=== PATIENT | female | born 1970 | race Caucasian/White ===

== ENCOUNTER 2016-08-10 15:22 | Inpatient (IN) | payer OTHER ==
[2016-08-10] MEDS ORDERED: MORPHINE SULFATE 2 MG/ML SYRINGE IVP STA ×2 (16:11→16:57)
[2016-08-10] MEDS ORDERED: RX INFO: IV CONTRAST WAS GIVEN 1 EACH MISC MISCELLANE PRN (16:11)
[2016-08-10] MEDS ORDERED: ONDANSETRON 4 MG/2 ML VIAL IVP STA ×2 (16:11→17:23)
[2016-08-10] MEDS ORDERED: SODIUM CHLORIDE 0.9% 1,000 ML IV STA (16:11)
--- NOTE | 2016-08-10 16:30 | ED ---
Abdominal Pain HPI - General Chief Complaint: Abdominal Pain Stated Complaint: abdominal pain Time Seen by Provider: 08/10/16 16:06 Source: patient, RN notes reviewed Mode of arrival: ambulatory Limitations: no limitations - History of Present Illness Initial Comments: 45-year-old female presents emergency Department with chief complaint of left lower quadrant abdominal pain times one week. Patient states this started after eating some popcorn. Patient states that she has a history of diverticulitis. Patient believes that she is having a bout of her diverticulitis. Patient states that she also has noticed that she's had black tarry stools for last 5-6 days. Patient states that is getting worse. She complains of severe fatigue and exertional shortness of breath. Patient states that she just is very tired. Patient denies any known fever, chills. Patient states she has been having some night sweats. Patient has no history of abdominal surgeries and states that she did not have an abscess with her previous diverticulitis. Patient denies any vaginal bleeding or vaginal discharge. Patient denies any dysuria, hematuria or increased frequency of urination. Denies any flank pain. - Related Data Allergies Allergy/AdvReac Type Severity Reaction Status Date / Time amoxicillin Allergy Unknown Verified 08/10/16 15:36 Penicillins Allergy Unknown Verified 08/10/16 15:36 Sulfa (Sulfonamide Allergy Unknown Verified 08/10/16 15:36 Antibiotics) Review of Systems ROS Statement: Those systems with pertinent positive or pertinent negative responses have been documented in the HPI. ROS Other: All systems not noted in ROS Statement are negative. Past Medical History Past Medical History: Asthma, Hypertension Additional Past Medical History / Comment(s): diverticulitis History of Any Multi-Drug Resistant Organisms: None Reported Past Surgical History: Tubal Ligation Additional Past Surgical History / Comment(s): exploratory GI surgery Past Psychological History: No Psychological Hx Reported Smoking Status: Never smoker Past Alcohol Use History: Occasional Past Drug Use History: None Reported General Exam Limitations: no limitations General appearance: alert, in no apparent distress Head exam: Present: atraumatic, normocephalic, normal inspection Respiratory exam: Present: normal lung sounds bilaterally. Absent: respiratory distress, wheezes, rales, rhonchi, stridor Cardiovascular Exam: Present: regular rate, normal rhythm, normal heart sounds. Absent: systolic murmur, diastolic murmur, rubs, gallop, clicks GI/Abdominal exam: Present: soft, tenderness (Moderate left lower quadrant tenderness), normal bowel sounds. Absent: distended, guarding, rebound, rigid Rectal exam: Present: normal rectal tone, heme (+) stool, black stool, other ( Rectal exam performed with Suha VILLAFUERTE). Absent: hemorrhoids Back exam: Absent: CVA tenderness (R), CVA tenderness (L) Skin exam: Present: warm, dry, intact, normal color. Absent: rash Course Vital Signs 08/10/16 08/10/16 15:33 17:22 Temperature 98.1 F Pulse Rate 102 H 92 Respiratory 20 16 Rate Blood Pressure 133/67 143/89 O2 Sat by Pulse 98 100 Oximetry Medical Decision Making - Lab Data Result diagrams: 08/10/16 16:30 08/10/16 16:30 Lab Results 08/10/16 08/10/16 08/10/16 Range/Units 16:30 16:30 16:30 WBC 12.9 H (3.8-10.6) k/uL RBC 2.59 L (3.80-5.40) m/uL Hgb 7.9 L (11.4-16.0) gm/dL Hct 23.3 L (34.0-46.0) % MCV 89.9 (80.0-100.0) fL MCH 30.6 (25.0-35.0) pg MCHC 34.0 (31.0-37.0) g/dL RDW 14.0 (11.5-15.5) % Plt Count 304 (150-450) k/uL Neutrophils % 76 % Lymphocytes % 15 % Monocytes % 5 % Eosinophils % 3 % Basophils % 0 % Neutrophils # 9.8 H (1.3-7.7) k/uL Lymphocytes # 1.9 (1.0-4.8) k/uL Monocytes # 0.6 (0-1.0) k/uL Eosinophils # 0.4 (0-0.7) k/uL Basophils # 0.1 (0-0.2) k/uL PT (9.0-12.0) sec INR (<1.1) APTT (22.0-30.0) sec Sodium 142 (137-145) mmol/L Potassium 3.6 (3.5-5.1) mmol/L Chloride 103 (98-107) mmol/L Carbon Dioxide 27 (22-30) mmol/L Anion Gap 12 mmol/L BUN 24 H (7-17) mg/dL Creatinine 0.53 (0.52-1.04) mg/dL Est GFR (MDRD) Af Amer >60 (>60 ml/min/1.73 sqM) Est GFR (MDRD) Non-Af >60 (>60 ml/min/1.73 sqM) Glucose 117 H (74-99) mg/dL Plasma Lactic Acid Bandar (0.7-2.0) mmol/L Calcium 9.2 (8.4-10.2) mg/dL Total Bilirubin 0.3 (0.2-1.3) mg/dL AST 23 (14-36) U/L ALT 44 (9-52) U/L Alkaline Phosphatase 67 (38-126) U/L Total Protein 6.1 L (6.3-8.2) g/dL Albumin 3.7 (3.5-5.0) g/dL Amylase 45 (30-110) U/L Lipase 94 (23-300) U/L Urine Color Urine Appearance (Clear) Urine pH (5.0-8.0) Ur Specific [place] (1.001-1.035) Urine Protein (Negative) Urine Glucose (UA) (Negative) Urine Ketones (Negative) Urine Blood (Negative) Urine Nitrate (Negative) Urine Bilirubin (Negative) Urine Urobilinogen (<2.0) mg/dL Ur Leukocyte Esterase (Negative) Urine HCG, Qual Not Detected (Not Detectd) Stool Occult Blood (Negative) 08/10/16 08/10/16 08/10/16 Range/Units 16:30 16:30 16:30 WBC (3.8-10.6) k/uL RBC (3.80-5.40) m/uL Hgb (11.4-16.0) gm/dL Hct (34.0-46.0) % MCV (80.0-100.0) fL MCH (25.0-35.0) pg MCHC (31.0-37.0) g/dL RDW (11.5-15.5) % Plt Count (150-450) k/uL Neutrophils % % Lymphocytes % % Monocytes % % Eosinophils % % Basophils % % Neutrophils # (1.3-7.7) k/uL Lymphocytes # (1.0-4.8) k/uL Monocytes # (0-1.0) k/uL Eosinophils # (0-0.7) k/uL Basophils # (0-0.2) k/uL PT 10.5 (9.0-12.0) sec INR 1.0 (<1.1) APTT 21.9 L (22.0-30.0) sec Sodium (137-145) mmol/L Potassium (3.5-5.1) mmol/L Chloride (98-107) mmol/L Carbon Dioxide (22-30) mmol/L Anion Gap mmol/L BUN (7-17) mg/dL Creatinine (0.52-1.04) mg/dL Est GFR (MDRD) Af Amer (>60 ml/min/1.73 sqM) Est GFR (MDRD) Non-Af (>60 ml/min/1.73 sqM) Glucose (74-99) mg/dL Plasma Lactic Acid Bandar 0.8 (0.7-2.0) mmol/L Calcium (8.4-10.2) mg/dL Total Bilirubin (0.2-1.3) mg/dL AST (14-36) U/L ALT (9-52) U/L Alkaline Phosphatase (38-126) U/L Total Protein (6.3-8.2) g/dL Albumin (3.5-5.0) g/dL Amylase (30-110) U/L Lipase (23-300) U/L Urine Color Yellow Urine Appearance Clear (Clear) Urine pH 6.0 (5.0-8.0) Ur Specific [place] 1.025 (1.001-1.035) Urine Protein Negative (Negative) Urine Glucose (UA) Negative (Negative) Urine Ketones Negative (Negative) Urine Blood Negative (Negative) Urine Nitrate Negative (Negative) Urine Bilirubin Negative (Negative) Urine Urobilinogen <2.0 (<2.0) mg/dL Ur Leukocyte Esterase Negative (Negative) Urine HCG, Qual (Not Detectd) Stool Occult Blood (Negative) 08/10/16 Range/Units 17:00 WBC (3.8-10.6) k/uL RBC (3.80-5.40) m/uL Hgb (11.4-16.0) gm/dL Hct (34.0-46.0) % MCV (80.0-100.0) fL MCH (25.0-35.0) pg MCHC (31.0-37.0) g/dL RDW (11.5-15.5) % Plt Count (150-450) k/uL Neutrophils % % Lymphocytes % % Monocytes % % Eosinophils % % Basophils % % Neutrophils # (1.3-7.7) k/uL Lymphocytes # (1.0-4.8) k/uL Monocytes # (0-1.0) k/uL Eosinophils # (0-0.7) k/uL Basophils # (0-0.2) k/uL PT (9.0-12.0) sec INR (<1.1) APTT (22.0-30.0) sec Sodium (137-145) mmol/L Potassium (3.5-5.1) mmol/L Chloride (98-107) mmol/L Carbon Dioxide (22-30) mmol/L Anion Gap mmol/L BUN (7-17) mg/dL Creatinine (0.52-1.04) mg/dL Est GFR (MDRD) Af Amer (>60 ml/min/1.73 sqM) Est GFR (MDRD) Non-Af (>60 ml/min/1.73 sqM) Glucose (74-99) mg/dL Plasma Lactic Acid Bandar (0.7-2.0) mmol/L Calcium (8.4-10.2) mg/dL Total Bilirubin (0.2-1.3) mg/dL AST (14-36) U/L ALT (9-52) U/L Alkaline Phosphatase (38-126) U/L Total Protein (6.3-8.2) g/dL Albumin (3.5-5.0) g/dL Amylase (30-110) U/L Lipase (23-300) U/L Urine Color Urine Appearance (Clear) Urine pH (5.0-8.0) Ur Specific [place] (1.001-1.035) Urine Protein (Negative) Urine Glucose (UA) (Negative) Urine Ketones (Negative) Urine Blood (Negative) Urine Nitrate (Negative) Urine Bilirubin (Negative) Urine Urobilinogen (<2.0) mg/dL Ur Leukocyte Esterase (Negative) Urine HCG, Qual (Not Detectd) Stool Occult Blood Positive H (Negative) 08/10/16 17:17 EKG performed at 16:38 normal sinus rhythm with a rate of 90, MI interval 142, QRS duration 98, QT/QTC 388/474 Disposition Clinical Impression: Anemia, GI bleed, Abdominal pain, left lower quadrant Disposition: ADMITTED IP TO THIS HOSP Condition: Stable
[2016-08-10 16:44] LABS: Basophils # (A) 0.1 k/uL (0-0.2); Basophils % (A) 0 %; CH 30.1; CHCM 33.7; Eosinophils # (A) 0.4 k/uL (0-0.7); Eosinophils % (A) 3 %; HCT 23.3 % (34.0-46.0); HDW 2.69; HGB 7.9 gm/dL (11.4-16.0); Luc # (Auto) 0.21; Luc % (Auto) 2; Lymphocytes # (A) 1.9 k/uL (1.0-4.8); Lymphocytes % (A) 15 %; MCH 30.6 pg (25.0-35.0); MCV 89.9 fL (80.0-100.0); Mean Platelet Volume 6.6; Monocytes # (A) 0.6 k/uL (0-1.0); Monocytes % (A) 5 %; Neutrophils # (A) 9.8 k/uL (1.3-7.7); Neutrophils % (A) 76 %; RBC 2.59 m/uL (3.80-5.40); WBC 12.9 k/uL (3.8-10.6); WBC (Perox) 12.96
[2016-08-10 16:45] LABS: Appearance,Urine Clear (Clear); Bilirubin,Urine Negative (Negative); Glucose,Urine (UA) Negative (Negative); Ketones,Urine Negative (Negative); Leukocyte Esterase,Urine Negative (Negative); Nitrite,Urine Negative (Negative); Protein,Urine Negative (Negative); Specific Gravity,Urine 1.025 (1.001-1.035); UA Billing (MACRO vs. MICRO) CHEM; Urobilinogen,Urine <2.0 mg/dL (<2.0)
[2016-08-10 16:54] LABS: ALT 44 U/L (9-52); AST 23 U/L (14-36); Alkaline Phosphatase 67 U/L (38-126); Amylase 45 U/L (30-110); Anion Gap 12 mmol/L; Blood Urea Nitrogen 24 mg/dL (7-17); Calcium 9.2 mg/dL (8.4-10.2); Carbon Dioxide 27 mmol/L (22-30); Chloride 103 mmol/L (98-107); Glucose 117 mg/dL (74-99); Non-African American GFR(MDRD) >60 (>60 ml/min/1.73 sqM); Potassium 3.6 mmol/L (3.5-5.1); Sodium 142 mmol/L (137-145); Total Bilirubin 0.3 mg/dL (0.2-1.3); Total Protein 6.1 g/dL (6.3-8.2)
[2016-08-10] MEDS ORDERED: MORPHINE SULFATE 4 MG/ML SYRINGE IVP STA (16:56)
[2016-08-10 17:03] LABS: Prothrombin Time 10.5 sec (9.0-12.0)
[2016-08-10 17:05] LABS: Partial Thromboplastin Time 21.9 sec (22.0-30.0)
--- NOTE | 2016-08-10 17:27 | CT ---
EXAMINATION TYPE: CT abdomen pelvis w con DATE OF EXAM: 08/10/2016 5:15 PM COMPARISON: NONE HISTORY: Left lower quadrant pain x 1 week. History of diverticulitis. CT DLP: 1487 mGycm Automated exposure control for dose reduction was used. CONTRAST: Performed without Oral Contrast and with IV Contrast, patient injected with 100 mL of Omnipaque 300. FINDINGS: The lung bases are clear. There is no pleural effusion. There is a small hiatal hernia. Heart size is normal. Liver spleen pancreas gallbladder appear normal. Bile ducts are nondilated. There is no adrenal mass. Kidneys show satisfactory contrast opacification. There is no hydronephrosis. There is no retroperit gardner adenopathy. There is no ascites. Bladder distends smoothly. There is no sign of a pelvic mass. Appendix is not seen. There is no sign of appendicitis. I see no intestinal wall thickening. There ar e no dilated loops. The bony structures are intact. Uterus is anteverted. There is no sign of a pelvi c mass. There are a few diverticula in the sigmoid colon. IMPRESSION: THERE IS A SMALL HIATAL HERNIA. OTHERWISE NEGATIVE CT SCAN OF THE ABDOMEN AND PELVIS. NO EVIDENCE OF ANY SIGNIFICANT DIVERTICULAR DISEASE.
[2016-08-10] MEDS ORDERED: NALOXONE 0.4 MG/ML 1 ML VIAL IV PRN (17:37)
[2016-08-10] MEDS ORDERED: LEVOFLOXACIN 750MG-D5W PMX 750 MG in DEXTROSE/WATER 1 150ML.BAG IVPB STA (17:43)
[2016-08-10] MEDS: SODIUM CHLORIDE 0.9% 1,000 ML IV SCH (18:28)
[2016-08-10 19:32] LABS: Basophils % (A) 0 %; CH 29.9; CHCM 32.7; Eosinophils # (A) 0.3 k/uL (0-0.7); Eosinophils % (A) 3 %; HCT 20.6 % (34.0-46.0); HDW 2.69; Luc # (Auto) 0.15; Luc % (Auto) 1; Lymphocytes # (A) 1.8 k/uL (1.0-4.8); Lymphocytes % (A) 17 %; MCHC 32.6 g/dL (31.0-37.0); MCV 91.8 fL (80.0-100.0); Mean Platelet Volume 7.4; Monocytes # (A) 0.4 k/uL (0-1.0); Monocytes % (A) 4 %; Neutrophils # (A) 7.7 k/uL (1.3-7.7); Neutrophils % (A) 74 %; RBC 2.24 m/uL (3.80-5.40); RDW 14.3 % (11.5-15.5); WBC 10.4 k/uL (3.8-10.6); WBC (Perox) 10.79
[2016-08-10 19:51] LABS: HGB 6.7 gm/dL (11.4-16.0)
[2016-08-10] MEDS: MORPHINE SULFATE 4 MG/ML SYRINGE IV PRN (20:32)
[2016-08-10] MEDS: PANTOPRAZOLE 40 MG/10 ML VIAL IVP SCH (22:20)
[2016-08-10] MEDS: ONDANSETRON 4 MG/2 ML VIAL IVP PRN (22:20)
[2016-08-11] MEDS: MORPHINE SULFATE 4 MG/ML SYRINGE IV PRN ×2 (01:24→06:15)
[2016-08-11] MEDS: metroNIDAZOLE-NS PMX 500 MG in SALINE 1 100ML.BAG IVPB SCH ×3 (01:24→13:03)
[2016-08-11] MEDS: SODIUM CHLORIDE 0.9% 1,000 ML IV SCH (02:19)
[2016-08-11] MEDS: ONDANSETRON 4 MG/2 ML VIAL IVP PRN ×2 (06:15→13:05)
[2016-08-11] MEDS ORDERED: IBUPROFEN 400 MG TAB PO STA (06:43)
[2016-08-11 07:53] LABS: Anion Gap 6 mmol/L; Blood Urea Nitrogen 14 mg/dL (7-17); Calcium 8.4 mg/dL (8.4-10.2); Carbon Dioxide 27 mmol/L (22-30); Chloride 107 mmol/L (98-107); Glucose 124 mg/dL (74-99); Non-African American GFR(MDRD) >60 (>60 ml/min/1.73 sqM); Sodium 140 mmol/L (137-145)
[2016-08-11 08:01] LABS: Basophils % (A) 1 %; CH 31.2; CHCM 33.5; Eosinophils # (A) 0.2 k/uL (0-0.7); Eosinophils % (A) 2 %; HCT 25.9 % (34.0-46.0); HDW 3.21; Luc # (Auto) 0.12; Luc % (Auto) 1; Lymphocytes # (A) 1.2 k/uL (1.0-4.8); Lymphocytes % (A) 13 %; MCH 30.1 pg (25.0-35.0); MCHC 32.2 g/dL (31.0-37.0); MCV 93.7 fL (80.0-100.0); Mean Platelet Volume 7.3; Monocytes # (A) 0.5 k/uL (0-1.0); Monocytes % (A) 5 %; Neutrophils % (A) 78 %; RBC 2.77 m/uL (3.80-5.40); RDW 14.8 % (11.5-15.5); WBC (Perox) 9.92
[2016-08-11 08:03] LABS: HGB 8.4 gm/dL (11.4-16.0)
[2016-08-11] MEDS: PANTOPRAZOLE 40 MG/10 ML VIAL IVP SCH (08:42)
[2016-08-11] MEDS ORDERED: PROPOFOL 10 MG/ML 20 ML VIAL IV ONE (09:28)
[2016-08-11] MEDS ORDERED: fentaNYL (PF) 50 MCG/ML 2 ML AMP ONE (09:28)
[2016-08-11] MEDS ORDERED: IV FLUID CONTINUATION 1,000 ML IV ONE (09:34)
[2016-08-11] MEDS ORDERED: EPINEPHrine 10 ML SYRINGE (0.1 MG/ML) MISCELLANE ONE (10:01)
[2016-08-11] MEDS ORDERED: SODIUM CHLORIDE 0.9% 1,000 ML IV ONE (10:09)
--- NOTE | 2016-08-11 10:26 | P.PCN ---
Date of Procedure: 08/11/16 Preoperative Diagnosis: Postoperative Diagnosis: Procedure(s) Performed: BRIEF HISTORY: Patient is a 45-year-old, pleasant, white female, admitted to the hospital with acute GI bleed. She was having black tarry stools and left sided abdominal pain for the last 1 week duration. The pain continued to progressively get worse and came into the emergency room and was noted to have a hemoglobin of 6.7 requiring 2 units of PRBC transfusion. She had a CT of the abdomen and pelvis done that showed a small hiatal hernia but otherwise unremarkable. This morning she had 2 episodes of coffee-ground emesis and continues to complain of worsening left-sided upper abdominal pain. She is scheduled for an upper endoscopy to evaluate further PROCEDURE PERFORMED: Esophagogastroduodenoscopy with injection epinephrine and resolution clip placement. PREOPERATIVE DIAGNOSIS: Upper GI bleed and left sided abdominal pain. IV sedation per anesthesia. PROCEDURE: After informed consent was obtained, the patient was brought into the endoscopy unit. IV conscious sedation was administered by Anesthesia under continuous monitoring. Initially the Olympus GIF-140 video endoscope was inserted into the mouth. Esophagus intubated without any difficulty. It was gradually advanced into the stomach and duodenum and carefully examined. The bulb and the second part of the duodenum appeared normal. There was a small ulcer noted in the bulb of the duodenum with no active bleeding. This measured about 1 cm and was superficial. The scope at this time was withdrawn to the stomach, adequately insufflated with air, and upon careful examination, there was fresh blood with clots noted in the fundus of the stomach. The mucosa of the antrum, body, cardia and the fundus appeared normal. The scope was then withdrawn into the esophagus. There was a small hiatal hernia noted. The GE junction was located at 39 cm from the incisors. There was a deep ulceration noted at the GE junction with a visible vessel and just adjacent to this area, distal to the GE junction there was another deep ulceration with a visible vessel noted. This measured approximately 1-1.5 cm. Initially 1 in 10,000 epinephrine was injected at the base of both ulcers which were located adjacent to each other. Following this 2 resolution clips were placed on each ulcer with good hemostasis. The rest of the esophagus appeared normal and the patient tolerated the procedure well. IMPRESSION: 1. 2 deep ulcerations at the GE junction with visible vessel and active oozing status post injection epinephrine and resolution clip placement with good hemostasis. 2. Small hiatal hernia. 3. Superficial once intermittent duodenal ulcer with no active bleeding. RECOMMENDATIONS: The findings of this examination were discussed with the patient . Because of the concern of the location of the ulcers and the appearance this a concern for perforation. The patient also has been having severe symptoms of abdominal pain which is especially worse with deep inspiration. Hence I will obtain surgical consultation and also stat CT of the chest. The findings of this examination were discussed with Dr. Driscoll. Implants: Indications for Procedure: Operative Findings: Description of Procedure:
[2016-08-11] MEDS ORDERED: RX INFO: IV CONTRAST WAS GIVEN 1 EACH MISC MISCELLANE PRN (10:27)
--- NOTE | 2016-08-11 11:59 | CT ---
EXAMINATION TYPE: CT chest w con DATE OF EXAM: 08/11/2016 11:32 AM COMPARISON: NONE HISTORY: LLQ abdominal pain, Hx of diverticulitis, anemia and GI bleed CT DLP: 387.20 mGycm, Automated exposure control for dose reduction was used. CONTRAST: Performed injected with 100 ml mL of Omnipaque 300. TECHNIQUE: Axial images were obtained at 5 mm thick sections. Reconstructed images are reviewed on [employer] computer in the coronal plane. FINDINGS: Portion of the thyroid visualized is normal. No suspicious lung nodules or focal infiltrates are present. There is a pneumomediastinum. Leaking from the reported esophageal ulceration should be considered. The some metallic type densities within the gastroesophageal junction region of uncertain etiology. O ne of these extends to nearly the border posteriorly. These are surgical clips placed during EGD by omayra lozano. No enlarged mediastinal or hilar adenopathy is evident. The ascending aorta diameter at the level o f the main pulmonary artery is 3.5 cm. The main pulmonary artery diameter at the bifurcation is 3.[address] sections are obtained through the upper abdomen. There is some fullness of the left adrena l gland estimated 1.1 cm. Contrast is within the gallbladder. IMPRESSIONS: 1. Pneumomediastinum. Report was called to Dr. Bojorquez by Dr. Hernandez by telephone 1155 hours 08/11/2016. Findings aren't interval change from 08/10/2016 CT abdomen pelvis.
[2016-08-11] MEDS ORDERED: ALBUTEROL NEBULIZED 2.5 MG/3 ML INHALATION SCH (12:00)
[2016-08-11] MEDS ORDERED: PIPERACILLIN-TAZOBACTAM 3.375 GM in DEXTROSE/WATER 1 50ML.BAG IVPB STA (12:06)
[2016-08-11 13:26] VITALS: BP 120/66; PULSE 84; RESP 18; TEMP 97.8
--- NOTE | 2016-08-11 14:48 | CONS ---
DATE OF CONSULTATION: 08/11/2016 REASON FOR CONSULTATION: Acute GI bleed. HISTORY OF PRESENT ILLNESS: The patient is a 46-year-old pleasant lady who came into the emergency complaining of severe left sided abdominal pain associated with black tarry stools for the last one weeks duration. She states her symptoms began the day after [place]. She thought she ate something and started having some black tarry stools. She was having about one bowel movement a day, but she did not see any obvious blood when she flushed the toilet. However, this continued on for the next 4 or 5 days and then started developing some left-sided abdominal pain, mostly in the left upper quadrant radiating to the left lower quadrant area and became extremely weak, tired, short of breath and came into the emergency room and subsequently was admitted to the hospital for further evaluation. She was noted to have a hemoglobin of 6.7, requiring 2 units of PRBC transfusion. This morning she did not feel well, became extremely nauseated and threw up and had 2 episodes of coffee-ground emesis. She stated the pain has been progressively getting worse. In the ER, she did have a CT of the abdomen and pelvis done that was unremarkable. No prior history of peptic ulcer disease. She takes Excedrin once or twice a week for headaches. PAST MEDICAL HISTORY: Asthma, hypertension, and history of some diverticulitis for which she was hospitalized 3 years ago and treated with antibiotics at [facility]. PAST SURGICAL HISTORY: Tubal ligation, and some exploratory laparotomy. MEDICATIONS AT HOME: 1. Zestoretic. 2. Albuterol. 3. Symbicort. ALLERGIES: AMOXICILLIN AND PENICILLIN, SULFA. SOCIAL HISTORY: No smoking. No alcohol use. FAMILY HISTORY: Unremarkable. REVIEW OF SYSTEMS: CARDIOPULMONARY: No chest pain or shortness of breath. GENITOURINARY: No dysuria or hematuria. MUSCULOSKELETAL: Unremarkable. SKIN: Unremarkable. ENDOCRINE: Unremarkable. PSYCHIATRIC: Unremarkable. NEUROLOGY: Unremarkable. ENT: Vision unremarkable. CONSTITUTIONAL: No recent weight loss. No fever, chills or night sweats. On physical examination, blood pressure is 125/70, pulse rate 92, temperature 98.1. HEENT examination unremarkable. Conjunctivae pink. Sclerae anicteric. Oral cavity, no lesions. NECK: No JVD or lymph node enlargement. Chest was clear to auscultation. HEART: Regular rate and rhythm. ABDOMEN: Soft. It was nontender, nondistended. There was mild tenderness in the left upper quadrant area as well as in the left lower quadrant area, but no rebound or rigidity. Bowel sounds are positive. EXTREMITIES: No pedal edema. SKIN: No rashes. NEURO: Alert and oriented x3. No focal deficits. Labs done at the time of admission to the hospital: WBC 12.9, hemoglobin 7.9, platelets 304, INR is 1, BUN was 24, creatinine 0.5 today. Hemoglobin dropped to 6.7 and after 2 units it is 8.4. BUN is 14, creatinine 0.5. Stool occult blood was positive. CT of the abdomen and pelvis showed small hiatal hernia but otherwise unremarkable. IMPRESSION: This is a lady who presents with left-sided abdominal pain with black tarry stools for the last one week duration and had a hemoglobin of 6.7 on admission requiring 2 units of PRBC transfusion. She also had 2 episodes of coffee-ground emesis early this morning after being admitted to the hospital. CAT scan showed small hiatal hernia but otherwise unremarkable. Most likely we are dealing with an upper gastrointestinal source of bleeding, possibly related to peptic ulcer disease. RECOMMENDATIONS: 1. Continue with IV Protonix. 2. Keep her n.p.o. 3. We will proceed with an upper endoscopy today. Discussed with the patient risks and complications and she is agreeable to it.
--- NOTE | 2016-08-11 17:17 | HP ---
DATE OF ADMISSION: CHIEF COMPLAINT: Abdominal pain. HISTORY OF PRESENT ILLNESS: Ms. Colon is a 45-year-old female with a known history of hypertension and asthma, came to the hospital with complaints of left lower quadrant and upper quadrant abdominal pain which has been present for the past 4 to 5 days. The patient stated that it got aggravated when she ate some popcorn yesterday which made her come to the hospital. Patient states that she had a history of diverticulitis in the past and patient also noted to have black, tarry stools for the past 5 to 6 days which is getting worse. Patient also complains of ( ) and exertional shortness of breath and very tired. Otherwise, patient denied any fever, chills and the patient has been having some night sweats as well. Patient denied any history of abdominal surgeries. The patient was seen by gastroenterology and upper endoscopy was done today which showed deep esophageal ulcer and possible perforation was suspected and subsequent CT scan of the chest was done which showed hemoperitoneum. Patient on antibiotics of Flagyl and levofloxacin and currently hemodynamically stable. General surgery has been consulted for further evaluation and possible surgery or transferred to tertiary care facility. Past medical history includes hypertension, asthma and had diverticulitis history. PAST SURGICAL HISTORY: Tubal ligation, exploratory GI surgery. SOCIAL HISTORY: Patient never a smoker. Occasional alcohol use. Denies any drug abuse. FAMILY HISTORY: Denied any history of hypertension, diabetes mellitus or heart disease in the family. HOME MEDICATIONS: Included amoxicillin, penicillin, sulfa. The patient denied any history of NSAID use or [id number] pain medication use. Home medications include albuterol inhaler, Cymbicort and lisinopril/hydrochlorothiazide. REVIEW OF SYSTEMS: CONSTITUTIONAL: No fever. No chills. Patient does have night sweats. CARDIOVASCULAR: Short of breath as above. ABDOMEN: Patient does have abdominal pain and no vomiting. No diarrhea. GENITOURINARY: The patient does have dark colored stools. ENDOCRINE: Negative. PSYCHIATRIC: Negative. PHYSICAL EXAMINATION: A 45-year-old female, lying in the bed. Awake, alert, oriented, x3. Patient appears to be in mild distress. VITALS: When she came to the hospital blood pressure was 133/67, pulse 102, respirations 20, temperature afebrile, pulse ox 98% on room air. HEENT: Atraumatic, normocephalic. NECK: Supple. No JVD. CVS: S1, S2 heard. No murmurs, no gallop, no rub. LUNGS: Bilateral air entry present. No wheezing. No crackles. ABDOMEN: Soft. Minimal epigastric tenderness. No guarding or rigidity. Bowel sounds are present. BIT TAPPER: Awake, alert, oriented, x3. No focal neurologic deficits. Cranial nerves grossly intact. EXTREMITIES: No edema. Pulses are palpable bilaterally. No clubbing or cyanosis. PSYCHIATRIC: Cooperative. LABORATORY DATA: WBC 12.9, hemoglobin 7.9, platelets 304. INR 1.0. Sodium 142, potassium 3.6, chloride 103, bicarb is 27. BUN 24, creatinine 0.53. Blood sugar is 117. Liver enzymes within normal limits. Albumin is 6.1. UA is negative. ( ) positive. CT of the abdomen and pelvis showed there is small hiatal, otherwise negative. CT scan of the abdomen and pelvis, no evidence of any significant diverticular disease. EKG, normal sinus rhythm. EGD showed two deep ulcerations at the gastroesophageal junction with visible vessel and active oozing status post injection of epinephrine and radiolucent clip placement with good hemostasis and a small hiatal hernia and superficial 1 cm duodenal ulcer with no active bleeding. IMPRESSION: 1. Acute blood loss anemia, acute upper gastrointestinal bleed. 2. Deep ulceration at the gastroesophageal junction status post EGD and radiolucent clip placement. 3. Small hiatal anemia. 4. History of diverticulitis per patient. 5. Hypertension. 6. Asthma. 7. Pneumomediastinum status post CT chest. RECOMMENDATIONS: This is a 45-year-old female with known history of diverticulitis, asthma and hypertension, admitted to the hospital with worsening abdominal pain in the side. and dark, tarry stools. Patient had endoscopy that showed two ulcers too deep to assess in the gastroesophageal junction with active bleeding which has been treated in the OR. Otherwise, the patient was found to have a pneumomediastinum and general surgery has been consulted and recommended transfer to tertiary care facility. The patient will be transferred to [facility] for further care. I did discuss with surgery team there. Will continue current management. Prognosis guarded. Further recommendations based on clinical course.
[2016-08-11] MEDS ORDERED: LEVOFLOXACIN 750MG-D5W PMX 750 MG in DEXTROSE/WATER 1 150ML.BAG IVPB SCH (18:00)
--- NOTE | 2016-08-14 12:56 | DS ---
DATE OF ADMISSION: 08/10/2016 DATE OF TRANSFER TO [facility]/DISCHARGE: 08/11/2016 DISCHARGE DIAGNOSES: 1. 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 2. Acute blood loss anemia secondary to upper gastrointestinal bleed and with dark-colored stools for the past 4 to 6 days. 3. History of diverticular disease. 4. Asthma. 5. Hypertension. Allergy to PENICILLIN. HISTORY OF ILLNESS: Ms. Colon is a 45-year-old female, admitted to the hospital with left-side abdominal pain and dark-colored stools, patient had endoscopy today, which showed 2 ulcers at the gastroesophageal junction and with visible vessel and bleeding. Patient was ( ) clip in the OR and subsequent CT angio and CT chest showed a pneumomediastinum and ( ) recommended transfer to a tertiary care facility. I did discuss with [facility] and the is being transferred to [facility] for further care. DISCHARGE PHYSICAL EXAMINATION: A 45-year-old female lying in the bed comfortably. Awake, alert, oriented x3, appears in no apparent distress. VITALS: Blood pressure is 101/61, pulse is 103, respirations 20, temperature afebrile, pulse ox 95% on room air. Laboratory data reviewed. WBC 9.0, hemoglobin dropped down to 6.7 and went up to 8.4 after a unit of blood transfusion. Other laboratory data within normal limits. UA negative. ( ) positive. Discharge medications include: 1. Albuterol inhaler 2 puffs q.6 hourly p.r.n. for short of breath. 2. Symbicort 2 puffs inhalation b.i.d. 3. Lisinopril-hydrochlorothiazide 1 tablet p.o. daily. 4. Patient was given antibiotics in the form of metronidazole and levofloxacin. Patient has ( ). The patient will be discharged to [facility] in stable condition and further care and I discussed with the surgical team there who accepted the patient and patient will be transferred to [facility] as soon as possible.
== END 2016-08-11 13:32 | disposition short-term general hospital (02) | DRG 378 ==
LOC: EC 15:22 → 4MS4W 17:37 → 6SEL 21:05
PROVIDERS: ADMIT Internal Medicine; ATTEND Internal Medicine
PROC: 30233N1 Transfusion of Nonautologous Red Blood Cells into Peripheral Vein, Percutaneous Approach (ICD-10-PCS; 2016-08-10)
PROC: 3E0G8GC Introduction of Other Therapeutic Substance into Upper GI, Via Natural or Artificial Opening Endoscopic (ICD-10-PCS; principal; 2016-08-11 09:15)
PROC: 0W3P8ZZ Control Bleeding in Gastrointestinal Tract, Via Natural or Artificial Opening Endoscopic (ICD-10-PCS; 2016-08-11 09:15)
DX: K25.6 Chronic or unspecified gastric ulcer with both hemorrhage and perforation (principal); D62 Acute posthemorrhagic anemia; J98.2 Interstitial emphysema; I10 Essential (primary) hypertension; K44.9 Diaphragmatic hernia without obstruction or gangrene; J45.909 Unspecified asthma, uncomplicated; K26.9 Duodenal ulcer, unspecified as acute or chronic, without hemorrhage or perforation; K57.90 Diverticulosis of intestine, part unspecified, without perforation or abscess without bleeding; Z88.0 Allergy status to penicillin; Z88.2 Allergy status to sulfonamides; Z88.1 Allergy status to other antibiotic agents
CPT/HCPCS: 36415; 43243; 43255; 71260; 74177; 80048; 80053; 81003; 81025; 82150; 82272; 83605; 83690; 85025; 85610; 85730; 86850; 86900; 86901; 86920; 87040; 93005; 94640; 96361; 96374; 96375; 96376; 99153; 99285

== ENCOUNTER 2016-08-16 10:32 | Emergency (ER) | payer OTHER ==
[2016-08-16 10:37] VITALS: TEMP 97.7
[2016-08-16] MEDS ORDERED: HYDROmorphone 1 MG/ML 1 ML SYRINGE IVP STA (10:49)
[2016-08-16] MEDS ORDERED: SODIUM CHLORIDE 0.9% 1,000 ML IV STA ×2 (10:49)
[2016-08-16] MEDS ORDERED: ONDANSETRON ODT 8 MG TAB.RAPDIS PO STA (10:49)
--- NOTE | 2016-08-16 10:52 | ED ---
Abdominal Pain HPI - General Chief Complaint: Abdominal Pain Stated Complaint: ABDOMINAL PAIN, POST GI BLEED Time Seen by Provider: 08/16/16 10:41 Source: patient, family, RN notes reviewed Mode of arrival: wheelchair - History of Present Illness Initial Comments: Patient is a 45-year-old female who presents emergency room today with a chief complaint of increased nausea vomiting abdominal pain that started early this morning. She does admit that she was recently admitted to the hospital and transferred and or for. She states that she had 3 ulcers that she had surgery and a clips placed. She states there was a puncture through the esophagus and was transferred to [facility]. Patient states that she was recently released 3 days ago. Doing well up until early this morning when abdominal pain began. States she's having loose stools that are not is dark in color as they were previously. Does admit to cramping pain in the lower abdomen. States seems to be coming and going in waves. Patient does admit to feeling nauseated. Patient denies any other complaints or symptoms currently. Patient denies any recent fever, chills, shortness of breath, chest pain, back pain, numbness or tingling, dysuria or hematuria, constipation, visual changes, or any other complaints. - Related Data Home Medications Medication Instructions Recorded Confirmed Albuterol Inhaler [Ventolin Hfa 1 puff INHALATION RT-Q6H PRN 08/10/16 08/16/16 Inhaler] Budesonide/Formoterol Fumarate 2 puff INHALATION RT-BID 08/10/16 08/16/16 [Symbicort 160-4.5 Mcg Inhaler] Lisinopril-Hctz 10-12.5 mg 1 tab PO DAILY 08/10/16 08/16/16 [Zestoretic 10-12.5] Pantoprazole [Protonix] 40 mg PO BID 08/16/16 08/16/16 Previous Rx's Medication Instructions Recorded Ondansetron Odt [Zofran ODT] 4 mg PO Q8HR PRN #15 tab 08/16/16 Allergies Allergy/AdvReac Type Severity Reaction Status Date / Time amoxicillin Allergy Unknown Verified 08/16/16 10:37 Penicillins Allergy Unknown Verified 08/16/16 10:37 Sulfa (Sulfonamide Allergy Unknown Verified 08/16/16 10:37 Antibiotics) Review of Systems ROS Statement: Those systems with pertinent positive or pertinent negative responses have been documented in the HPI. ROS Other: All systems not noted in ROS Statement are negative. Past Medical History Past Medical History: Asthma, Hypertension Additional Past Medical History / Comment(s): diverticulitis History of Any Multi-Drug Resistant Organisms: None Reported Past Surgical History: Tubal Ligation Additional Past Surgical History / Comment(s): exploratory GI surgery Past Anesthesia/Blood Transfusion Reactions: No Reported Reaction Past Psychological History: No Psychological Hx Reported Smoking Status: Never smoker Past Alcohol Use History: Occasional Past Drug Use History: None Reported General Exam - General Exam Comments Initial Comments: General: The patient is awake and alert, in no distress, and does not appear acutely ill. Eye: Pupils are equal, round and reactive to light, extra-ocular movements are intact. No nystagmus. There is normal conjunctiva bilaterally. No signs of icterus. Ears, nose, mouth and throat: There are moist mucous membranes and no oral lesions. Neck: The neck is supple, there is no tenderness or JVD. Cardiovascular: There is a regular rate and rhythm. No murmur, rub or gallop is appreciated. Respiratory: Lungs are clear to auscultation, respirations are non-labored, breath sounds are equal. No wheezes, stridor, rales, or rhonchi. Gastrointestinal: Normal appearance abdomen. Normal bowel sounds. Abdomen soft on palpation. Patient does have mild tenderness both left and right lower quadrants. No rebound tenderness. No guarding. Musculoskeletal: Normal ROM, no tenderness. Strength 5/5. Sensation intact. Pulses equal bilaterally 2+. Neurological: A&O x 3. CN II-XII intact, There are no obvious motor or sensory deficits. Coordination appears grossly intact. Speech is normal. Skin: Skin is warm and dry and no rashes or lesions are noted. Psychiatric: Cooperative, appropriate mood & affect, normal judgment. Course Vital Signs 08/16/16 08/16/16 10:33 11:30 Temperature 97.7 F Pulse Rate 71 75 Respiratory 17 20 Rate Blood Pressure 125/71 122/70 O2 Sat by Pulse 96 96 Oximetry Medical Decision Making - Medical Decision Making Patient reexamined at this time shows no signs of distress. Patient's hemoglobin stable today. Patient feeling better here in the emergency room. Abdomen is soft on palpation. Case discussed in detail with attending physician Dr. Boyce. Patient will be discharged home advised follow-up the family doctor. Advised to continue with Protonix. Guaiac is positive. Patient 's vitals are stable. Advised follow-up with GI. Advised return if any symptoms increase or worsen. Patient and family member at bedside state understanding and agreement. - Lab Data Result diagrams: 08/16/16 11:00 08/16/16 11:00 Lab Results 08/16/16 08/16/16 08/16/16 Range/Units 11:00 11:00 11:00 WBC 8.8 (3.8-10.6) k/uL RBC 3.19 L (3.80-5.40) m/uL Hgb 9.3 L (11.4-16.0) gm/dL Hct 29.4 L (34.0-46.0) % MCV 92.2 (80.0-100.0) fL MCH 29.2 (25.0-35.0) pg MCHC 31.7 (31.0-37.0) g/dL RDW 14.5 (11.5-15.5) % Plt Count 345 (150-450) k/uL Neutrophils % 80 % Lymphocytes % 10 % Monocytes % 6 % Eosinophils % 3 % Basophils % 0 % Neutrophils # 7.1 (1.3-7.7) k/uL Lymphocytes # 0.9 L (1.0-4.8) k/uL Monocytes # 0.5 (0-1.0) k/uL Eosinophils # 0.3 (0-0.7) k/uL Basophils # 0.0 (0-0.2) k/uL Hypochromasia Slight Poikilocytosis Slight Sodium 142 (137-145) mmol/L Potassium 4.1 (3.5-5.1) mmol/L Chloride 104 (98-107) mmol/L Carbon Dioxide 27 (22-30) mmol/L Anion Gap 11 mmol/L BUN 13 (7-17) mg/dL Creatinine 0.50 L (0.52-1.04) mg/dL Est GFR (MDRD) Af Amer >60 (>60 ml/min/1.73 sqM) Est GFR (MDRD) Non-Af >60 (>60 ml/min/1.73 sqM) Glucose 139 H (74-99) mg/dL Plasma Lactic Acid Bandar 1.1 (0.7-2.0) mmol/L Calcium 9.8 (8.4-10.2) mg/dL Total Bilirubin 0.4 (0.2-1.3) mg/dL AST 62 H (14-36) U/L ALT 79 H (9-52) U/L Alkaline Phosphatase 64 (38-126) U/L Total Protein 6.3 (6.3-8.2) g/dL Albumin 4.0 (3.5-5.0) g/dL Amylase 53 (30-110) U/L Lipase 148 (23-300) U/L Stool Occult Blood (Negative) C. difficile (EIA) Intrp (Negative) 08/16/16 08/16/16 Range/Units 11:28 11:28 WBC (3.8-10.6) k/uL RBC (3.80-5.40) m/uL Hgb (11.4-16.0) gm/dL Hct (34.0-46.0) % MCV (80.0-100.0) fL MCH (25.0-35.0) pg MCHC (31.0-37.0) g/dL RDW (11.5-15.5) % Plt Count (150-450) k/uL Neutrophils % % Lymphocytes % % Monocytes % % Eosinophils % % Basophils % % Neutrophils # (1.3-7.7) k/uL Lymphocytes # (1.0-4.8) k/uL Monocytes # (0-1.0) k/uL Eosinophils # (0-0.7) k/uL Basophils # (0-0.2) k/uL Hypochromasia Poikilocytosis Sodium (137-145) mmol/L Potassium (3.5-5.1) mmol/L Chloride (98-107) mmol/L Carbon Dioxide (22-30) mmol/L Anion Gap mmol/L BUN (7-17) mg/dL Creatinine (0.52-1.04) mg/dL Est GFR (MDRD) Af Amer (>60 ml/min/1.73 sqM) Est GFR (MDRD) Non-Af (>60 ml/min/1.73 sqM) Glucose (74-99) mg/dL Plasma Lactic Acid Bandar (0.7-2.0) mmol/L Calcium (8.4-10.2) mg/dL Total Bilirubin (0.2-1.3) mg/dL AST (14-36) U/L ALT (9-52) U/L Alkaline Phosphatase (38-126) U/L Total Protein (6.3-8.2) g/dL Albumin (3.5-5.0) g/dL Amylase (30-110) U/L Lipase (23-300) U/L Stool Occult Blood Positive H (Negative) C. difficile (EIA) Intrp Negative (Negative) Disposition Clinical Impression: Abdominal pain, GI bleed Disposition: HOME SELF-CARE Condition: Good Instructions: Abdominal Pain (ED) Additional Instructions: The family doctor and GI specialist as discussed. Please return to emergency room if any symptoms increase or worsen or for any other concerns. Prescriptions: Ondansetron Odt [Zofran ODT] 4 mg PO Q8HR PRN #15 tab PRN Reason: Nausea Referrals: Luis Mccabe DO [Primary Care Provider] - 1-2 days Meera Bojorquze MD [STAFF PHYSICIAN] - 1-2 days Time of Disposition: 13:21
[2016-08-16] MEDS ORDERED: ONDANSETRON 4 MG/2 ML VIAL IVP STA (11:05)
[2016-08-16 11:22] LABS: Basophils % (A) 0 %; CH 30.2; Eosinophils # (A) 0.3 k/uL (0-0.7); Eosinophils % (A) 3 %; HCT 29.4 % (34.0-46.0); HDW 3.72; HGB 9.3 gm/dL (11.4-16.0); Hypochromasia Slight; Luc # (Auto) 0.14; Luc % (Auto) 2; Lymphocytes # (A) 0.9 k/uL (1.0-4.8); Lymphocytes % (A) 10 %; MCH 29.2 pg (25.0-35.0); MCHC 31.7 g/dL (31.0-37.0); MCV 92.2 fL (80.0-100.0); Mean Platelet Volume 7.4; Monocytes # (A) 0.5 k/uL (0-1.0); Monocytes % (A) 6 %; Neutrophils # (A) 7.1 k/uL (1.3-7.7); Neutrophils % (A) 80 %; Poikilocytosis Slight; RBC 3.19 m/uL (3.80-5.40); RDW 14.5 % (11.5-15.5); WBC 8.8 k/uL (3.8-10.6); WBC (Perox) 9.25
[2016-08-16 11:30] LABS: ALT 79 U/L (9-52); AST 62 U/L (14-36); Alkaline Phosphatase 64 U/L (38-126); Amylase 53 U/L (30-110); Anion Gap 11 mmol/L; Blood Urea Nitrogen 13 mg/dL (7-17); Calcium 9.8 mg/dL (8.4-10.2); Carbon Dioxide 27 mmol/L (22-30); Chloride 104 mmol/L (98-107); Glucose 139 mg/dL (74-99); Non-African American GFR(MDRD) >60 (>60 ml/min/1.73 sqM); Potassium 4.1 mmol/L (3.5-5.1); Sodium 142 mmol/L (137-145); Total Bilirubin 0.4 mg/dL (0.2-1.3); Total Protein 6.3 g/dL (6.3-8.2)
--- NOTE | 2016-08-16 11:48 | XR ---
EXAMINATION TYPE: XR chest 2V DATE OF EXAM: 08/16/2016 11:39 AM COMPARISON: 08/11/2016 HISTORY: Vomiting and pain FINDINGS: The lungs are clear and there is no pneumothorax, pleural effusion, or focal pneumonia. Calcified g ranuloma right lower lobe. Mild degenerative change of the spine. IMPRESSION: 1. No acute process. 2. There is a 4 mm nodule right lower lobe.
--- NOTE | 2016-08-16 11:49 | XR ---
EXAMINATION TYPE: XR KUB DATE OF EXAM: 08/16/2016 11:39 AM COMPARISON: 08/10/2016 HISTORY: Abdominal pain FINDINGS: The osseous structures are intact. The bowel gas pattern is nonspecific. Increased density likely wi thin diverticula the right colon. Calcifications in the pelvis on the left are nonspecific. IMPRESSION: 1. Nonspecific abdomen.
[2016-08-16 13:51] VITALS: BP 117/72; PULSE 70; RESP 16
== END 2016-08-16 13:50 | disposition home or self-care (01) ==
LOC: EC 10:32
DX: K92.2 Gastrointestinal hemorrhage, unspecified (principal); R91.1 Solitary pulmonary nodule; J45.909 Unspecified asthma, uncomplicated; I10 Essential (primary) hypertension; Z79.899 Other long term (current) drug therapy; Z79.51 Long term (current) use of inhaled steroids; Z88.2 Allergy status to sulfonamides
CPT/HCPCS: 96375; 96374; 96361; 99284; 36415; 80053; 82150; 83605; 83690; 85025; 82272; 80299; 71020; 74000; J2405; J1170; 87324

== ENCOUNTER → 2017-01-30 | Outpatient (CLI) | payer OTHER ==
--- NOTE | 2017-01-31 11:39 | MM ---
Reason for exam: screening (asymptomatic). Last mammogram was performed 1 year ago. History: Patient is postmenopausal. Took hormonal contraceptives for 10 years. Physical Findings: A clinical breast exam by your physician is recommended on an annual basis and results should be correlated with mammographic findings. MG 3D Screening Mammo W/Cad Bilateral CC and MLO view(s) were taken. Prior study comparison: January 26, 2016, bilateral MG 3d screening mammo w/cad. June 30, 2015, left breast US breast LT. January 10, 2015, bilateral MG diagnostic mammo w CAD [facility]. No significant changes when compared with prior studies. ASSESSMENT: Negative, BI-RAD 1 RECOMMENDATION: Routine screening mammogram of both breasts in 1 year.
== END | disposition home or self-care (01) ==
LOC: RADMAMWWP 15:14
PROVIDERS: ATTEND Family Medicine
DX: Z12.31 Encounter for screening mammogram for malignant neoplasm of breast (principal)
CPT/HCPCS: 77063; G0202

== ENCOUNTER 2017-02-18 10:45 | Day surgery (SDC) | payer OTHER ==
[2017-02-17 10:03] VITALS: BMI 34.0
[~2017-02-18 10:45] MED LIST: LACTATED RINGERS 1,000 ML IV SCH
[2017-02-18] MEDS ORDERED: LIDOCAINE 1% 20 ML VIAL (10MG/ML) FOR IV START INTRADERMA ONE (12:17)
[2017-02-18 12:21] VITALS: TEMP 97.6
[2017-02-18] MEDS ORDERED: ONDANSETRON 4 MG/2 ML VIAL IVP ONE (12:21)
[2017-02-18] MEDS ORDERED: PROPOFOL 10 MG/ML 20 ML VIAL IV ONE (12:44)
[2017-02-18] MEDS ORDERED: LIDOCAINE 1% INJ 10MG/ML (20 ML MDV) ONE (12:44)
--- NOTE | 2017-02-18 13:13 | P.PCN ---
Date of Procedure: 02/18/17 Preoperative Diagnosis: Postoperative Diagnosis: Procedure(s) Performed: Procedure: Esophagogastroduodenoscopy and biopsy. Preoperative diagnosis: Abdominal pain and nausea, patient has history of bleeding esophageal ulcers and esophageal perforation. Postoperative diagnosis: 1. Hiatal hernia with no obvious esophagitis or complicated reflux disease. 2. Mild gastritis and duodenitis. 3. Multiple biopsies obtained from the duodenum, antrum and esophagus. Preparation and sedation: Was provided by anesthesia. Brief clinical history: The patient is a 46-year-old female who I have evaluated recently in the office in regards to abdominal symptoms and nausea. This is happening despite being on Protonix which she has taken since August when she presented with upper GI bleeding and was found to have bleeding deep ulcers in the distal esophagus. She had to be transferred to [facility] back then because of perforation. She apparently had these symptoms which she currently is experiencing even before that time. This evaluation is to assess for ulcer disease or other pathology. Procedure: With the patient on her left lateral decubitus position and after informed consent and adequate sedation, I passed the Olympus-GIF 160 video upper endoscope through the cricopharyngeus down the esophagus. GE junction was around 38-39 cm from the incisors and there was a small sliding hiatal hernia measuring between 1-2 cm. The esophagus did not show any ulcers, erosions or any strictures or Aguayo's esophagus. The endoscope was then passed to the rest of the stomach which was insufflated with air and inspected in detail including the retroflex view in the cardia. There was some mottling and erythema in the antrum but no ulcers or erosions. Pyloric channel did not show any ulcers. Duodenal bulb, post bulbar area and descending duodenum showed some minimal erythema and edema. I obtained biopsies from the duodenum in addition to biopsies from the antrum and esophagus then the endoscope was withdrawn. The patient tolerated the procedure well. Plan: The patient was reassured. Will await biopsy results and make further recommendations based on her course and biopsy results. I will keep you updated on her progress. Implants: Indications for Procedure: Operative Findings: Description of Procedure:
[2017-02-18 13:18] VITALS: RESP 18
[2017-02-18 13:37] VITALS: BP 145/95; PULSE 68
== END 2017-02-18 13:45 | disposition home or self-care (01) ==
LOC: ORWHC2ENDO 10:45
DX: K21.0 Gastro-esophageal reflux disease with esophagitis (principal); K20.0 Eosinophilic esophagitis; K29.50 Unspecified chronic gastritis without bleeding; K44.9 Diaphragmatic hernia without obstruction or gangrene; K29.80 Duodenitis without bleeding; I10 Essential (primary) hypertension; J45.909 Unspecified asthma, uncomplicated; Z79.51 Long term (current) use of inhaled steroids; Z79.899 Other long term (current) drug therapy; Z88.0 Allergy status to penicillin; Z88.2 Allergy status to sulfonamides
CPT/HCPCS: 88305; 88342; 43239; J2405; J2001; J2704

== ENCOUNTER 2017-03-30 20:07 | Emergency (ER) | payer OTHER ==
[2017-03-30] MEDS ORDERED: HYDROcodone/APAP 5-325MG 1 EACH TAB PO STA (20:25)
[2017-03-30 20:27] VITALS: BP 152/85; PULSE 66; RESP 18; TEMP 98.3
--- NOTE | 2017-03-30 20:32 | ED ---
Back Pain HPI - General Chief Complaint: Back Pain/Injury Stated Complaint: low back pain due to fall yesterday Time Seen by Provider: 03/30/17 20:16 Source: patient Limitations: no limitations - History of Present Illness Initial Comments: 46-year-old female patient presents to emergency department today for complaints of left lower back pain. Patient states that early this morning around 0100 she was climbing down out of a van, she states she was facing into the van coming down backwards, she states once she got down she tripped and stumbled backwards, falling hitting her back on the cement curb. Patient states she has been having significant pain to the left lower back since then. She states that she is having some tingling down her left leg into her toes. She denies any numbness of the extremity. She denies any loss of bowel or bladder control. Denies any saddle anesthesia. She denies hitting her head, losing consciousness, or any other injuries. Patient denies any headache, neck pain, chest pain, shortness of breath, dizziness, weakness, abdominal pain, nausea, vomiting, or difficulties with bowel movements or urination. Patient denies any previous history of back pain or injury. - Related Data Home Medications Medication Instructions Recorded Confirmed Albuterol Inhaler [Ventolin Hfa 1 puff INHALATION RT-Q6H PRN 08/10/16 02/18/17 Inhaler] Budesonide/Formoterol Fumarate 2 puff INHALATION RT-BID 08/10/16 02/18/17 [Symbicort 160-4.5 Mcg Inhaler] Lisinopril-Hctz 10-12.5 mg 1 tab PO DAILY 08/10/16 02/18/17 [Zestoretic 10-12.5] Pantoprazole [Protonix] 40 mg PO BID 08/16/16 02/18/17 Ferrous Sulfate [Feosol] 325 mg PO DAILY 02/17/17 02/18/17 Previous Rx's Medication Instructions Recorded Hydrocodone/Acetaminophen [Holt 1 tab PO Q6HR PRN #15 tab 03/30/17 5-325] Ibuprofen 800 mg PO TID PRN #30 tablet 03/30/17 Allergies Allergy/AdvReac Type Severity Reaction Status Date / Time Penicillins Allergy SEIZURE Verified 03/30/17 20:19 amoxicillin AdvReac Nausea & Verified 03/30/17 20:19 Vomiting & Diarrhea doxycycline AdvReac Swelling Verified 03/30/17 20:19 Sulfa (Sulfonamide AdvReac Itching Verified 03/30/17 20:19 Antibiotics) Review of Systems ROS Statement: Those systems with pertinent positive or pertinent negative responses have been documented in the HPI. ROS Other: All systems not noted in ROS Statement are negative. Past Medical History Past Medical History: Asthma, GERD/Reflux, GI Bleed, Hypertension Additional Past Medical History / Comment(s): diverticulitis. ANEMIA. GI BLEED 08/2016 History of Any Multi-Drug Resistant Organisms: None Reported Past Surgical History: Tubal Ligation Additional Past Surgical History / Comment(s): exploratory GI surgery. EGD WITH PERFORATION-SPENT 5 DAYS AT [facility] IN ICU Past Anesthesia/Blood Transfusion Reactions: Motion Sickness, Postoperative Nausea & Vomiting (PONV) Past Psychological History: No Psychological Hx Reported Smoking Status: Current every day smoker Past Alcohol Use History: Occasional Past Drug Use History: Marijuana - Past Family History Father Family Medical History: Cancer General Exam Limitations: no limitations General appearance: alert, in no apparent distress Head exam: Present: atraumatic, normocephalic, normal inspection Eye exam: Present: normal appearance, PERRL, EOMI. Absent: scleral icterus, conjunctival injection, periorbital swelling ENT exam: Present: normal exam, normal oropharynx, mucous membranes moist Neck exam: Present: normal inspection, full ROM, other (Nontender, no step-off, no deformity to firm midline palpation of the posterior cervical spine. Full range of motion without pain or limitation.). Absent: tenderness, meningismus, lymphadenopathy Respiratory exam: Present: normal lung sounds bilaterally. Absent: respiratory distress, wheezes, rales, rhonchi, stridor Cardiovascular Exam: Present: regular rate, normal rhythm, normal heart sounds. Absent: systolic murmur, diastolic murmur, rubs, gallop, clicks Extremities exam: Present: normal inspection, full ROM, normal capillary refill. Absent: tenderness, pedal edema, joint swelling, calf tenderness Back exam: Present: normal inspection, tenderness (Tenderness over the left SI joint. ), other (Nontender, no step-off, no deformity to firm midline palpation of the thoracic and lumbar vertebrae.). Absent: full ROM (Increased pain with forward flexion, unable to hyperextend without severe pain.), CVA tenderness (R) , CVA tenderness (L), vertebral tenderness Neurological exam: Present: alert, oriented X3, CN II-XII intact Psychiatric exam: Present: normal affect, normal mood Skin exam: Present: warm, dry, intact, normal color. Absent: rash Course Vital Signs 03/30/17 20:19 Temperature 98.3 F Pulse Rate 66 Respiratory 18 Rate Blood Pressure 152/85 O2 Sat by Pulse 94 L Oximetry Medical Decision Making - Medical Decision Making 46-year-old female patient presents to emergency department today for evaluation of acute lower back pain after fall. X-ray of the lumbar spine and the pelvis were obtained and showed no acute osseous abnormalities. Patient neurological exam is within normal limits. Patient will be discharged home to follow up with her primary care physician for recheck in 1-2 days. She was given a prescription for Holt as well as ibuprofen. She was given instructions to ice the area. Patient given 2 days off of work. Patient instructed to return immediately for any new, worsening, or concerning symptoms. Patient verbalized understanding and agreed with this plan. - Radiology Data Radiology results: report reviewed, image reviewed 3 views of the lumbar spine showed lumbar vertebrae have normal alignment. Disc spaces are normal. Posterior elements are intact. Sacroiliac joints are normal. Impression by Dr. Landeros shows normal lumbar spine. Single view of the pelvis shows that the pelvic ring is intact. Proximal femurs and hip joints appear intact. Sacroiliac joints appear normal. Impression by Dr. Landeros shows normal pelvis. Disposition Clinical Impression: Acute low back pain, Fall with injury Disposition: HOME SELF-CARE Condition: Good Instructions: Acute Low Back Pain (ED) Additional Instructions: Take medications as directed. Apply ice to the area 20 minutes at a time at least 4 times daily. After 24-hour switch to warm moist heat. Gentle stretching exercises. Follow-up with primary care physician for recheck in 1-2 days. Return here immediately for any new, worsening, or concerning symptoms. Prescriptions: Hydrocodone/Acetaminophen [Holt 5-325] 1 tab PO Q6HR PRN #15 tab PRN Reason: Pain Ibuprofen 800 mg PO TID PRN #30 tablet PRN Reason: Pain Referrals: Luis Mccabe DO [Primary Care Provider] - 1-2 days Time of Disposition: 21:21
--- NOTE | 2017-03-30 20:54 | XR ---
EXAMINATION TYPE: XR pelvis AP view DATE OF EXAM: 03/30/2017 COMPARISON: NONE HISTORY: Fell yesterday. Pain. TECHNIQUE: Single view FINDINGS: Pelvic ring is intact. Proximal femurs and hip joints appear intact. Sacroiliac joints appe ar normal. IMPRESSION: Normal pelvis
--- NOTE | 2017-03-30 20:55 | XR ---
EXAMINATION TYPE: XR lumbar spine 2 or 3V DATE OF EXAM: 03/30/2017 COMPARISON: NONE HISTORY: Fall. Pain. TECHNIQUE: 3 views FINDINGS: Lumbar vertebra have normal alignment. Disc spaces are normal. Posterior elements are intac t. Sacroiliac joints are normal. IMPRESSION: Normal lumbar spine.
== END 2017-03-30 21:35 | disposition home or self-care (01) ==
LOC: EC 20:07
DX: M54.5 Low back pain (principal); J45.909 Unspecified asthma, uncomplicated; K21.9 Gastro-esophageal reflux disease without esophagitis; I10 Essential (primary) hypertension; F17.200 Nicotine dependence, unspecified, uncomplicated; Z79.51 Long term (current) use of inhaled steroids; Z79.899 Other long term (current) drug therapy; Z88.0 Allergy status to penicillin; Z88.1 Allergy status to other antibiotic agents; Z88.2 Allergy status to sulfonamides; W01.0XXA Fall on same level from slipping, tripping and stumbling without subsequent striking against object, initial encounter; Y92.89 Other specified places as the place of occurrence of the external cause
CPT/HCPCS: 72100; 72170; 99283

== ENCOUNTER 2017-09-09 14:46 | Inpatient (IN) | payer OTHER ==
[2017-09-09] MEDS ORDERED: IPRATROPIUM-ALBUTEROL 3 ML NEB INHALATION STA (15:03)
--- NOTE | 2017-09-09 15:14 | ED ---
General Adult HPI - General Chief complaint: Shortness of Breath Stated complaint: Chest Pain Time Seen by Provider: 09/09/17 14:51 Source: patient, EMS, RN notes reviewed Mode of arrival: EMS Limitations: no limitations - History of Present Illness Initial comments: 46-year-old female presents for evaluation of chest pain. Patient was seen at her primary care physician's office. She states she had developed this pain which was left anterior superior pain. She has had cough as well as some myalgias. She was concerned she had the flu or pneumonia and was sent in for evaluation. She denies any central chest pain or pressure. Denies nausea vomiting or diarrhea. She has had subjective fever and chills. She has had rhinorrhea. She states she had a flu swab which was negative. She was also diagnosed with pneumonia prior to presenting to the emergency department. Past medical history of hypertension. She is an occasional smoker. She also has history of asthma. - Related Data Home Medications Medication Instructions Recorded Confirmed Albuterol Inhaler [Ventolin Hfa 1 puff INHALATION RT-Q6H PRN 08/10/16 09/09/17 Inhaler] Budesonide/Formoterol Fumarate 2 puff INHALATION RT-BID 08/10/16 09/09/17 [Symbicort 160-4.5 Mcg Inhaler] Lisinopril-Hctz 10-12.5 mg 1 tab PO DAILY 08/10/16 09/09/17 [Zestoretic 10-12.5] Pantoprazole [Protonix] 40 mg PO BID 08/16/16 09/09/17 Ferrous Sulfate [Feosol] 325 mg PO DAILY 02/17/17 09/09/17 Cholecalciferol [Vitamin D3] 1,000 unit PO DAILY 09/09/17 09/09/17 Allergies Allergy/AdvReac Type Severity Reaction Status Date / Time Penicillins Allergy SEIZURE Verified 09/09/17 15:44 amoxicillin AdvReac Nausea & Verified 09/09/17 15:44 Vomiting & Diarrhea doxycycline AdvReac Swelling Verified 09/09/17 15:44 Sulfa (Sulfonamide AdvReac Itching Verified 09/09/17 15:44 Antibiotics) Review of Systems ROS Statement: Those systems with pertinent positive or pertinent negative responses have been documented in the HPI. ROS Other: All systems not noted in ROS Statement are negative. Past Medical History Past Medical History: Asthma, GERD/Reflux, GI Bleed, Hypertension Additional Past Medical History / Comment(s): diverticulitis. ANEMIA. GI BLEED 08/2016 History of Any Multi-Drug Resistant Organisms: None Reported Past Surgical History: Tubal Ligation Additional Past Surgical History / Comment(s): exploratory GI surgery. EGD WITH PERFORATION-SPENT 5 DAYS AT [facility] IN ICU Past Anesthesia/Blood Transfusion Reactions: Motion Sickness, Postoperative Nausea & Vomiting (PONV) Past Psychological History: No Psychological Hx Reported Smoking Status: Light tobacco smoker Past Drug Use History: None Reported - Past Family History Father Family Medical History: Cancer General Exam Limitations: no limitations General appearance: alert, in no apparent distress Head exam: Present: atraumatic, normocephalic Eye exam: Present: normal appearance, PERRL ENT exam: Present: normal exam Neck exam: Present: normal inspection. Absent: tenderness, meningismus Respiratory exam: Present: respiratory distress (mild), wheezes, chest wall tenderness. Absent: decreased breath sounds, prolonged expiratory Cardiovascular Exam: Present: regular rate, normal rhythm GI/Abdominal exam: Present: soft. Absent: distended, tenderness Extremities exam: Present: normal inspection, normal capillary refill. Absent: pedal edema Neurological exam: Present: alert, oriented X3, CN II-XII intact. Absent: motor sensory deficit Psychiatric exam: Present: normal affect, normal mood Skin exam: Present: warm, dry, intact. Absent: cyanosis, diaphoretic Course Vital Signs 09/09/17 09/09/17 09/09/17 14:50 15:23 15:37 Temperature 99.4 F Pulse Rate 88 103 H 90 Respiratory 22 Rate Blood Pressure 160/101 O2 Sat by Pulse 93 L Oximetry 09/09/17 09/09/17 09/09/17 15:44 16:27 16:32 Temperature 97.9 F Pulse Rate 90 88 Respiratory 20 18 Rate Blood Pressure 163/100 147/88 O2 Sat by Pulse 93 L 89 L 94 L Oximetry EKG Findings - EKG Comments: EKG Findings:: EKG shows normal sinus rhythm, Q waves in lead 3 and aVF, ventricular rate 88, MT interval 146, castration 90, QTC 452, no ST segment elevation or depression Medical Decision Making - Medical Decision Making 46-year-old female history of asthma presenting with cough dyspnea and fatigue. Chest x-rays obtained, does show a lingular infiltrate. White blood cell, mildly elevated at 10.8 which is predominantly neutrophils. Hemoglobin stable. D-dimer is negative. Electrolytes within normal limits, troponin is negative , BNP normal, influenza is negative. After initial treatment, patient does remain quite dyspneic with hypoxia on room air. She will be admitted for asthma exacerbation and community-acquired pneumonia. - Lab Data Result diagrams: 09/09/17 15:00 09/09/17 15:00 Lab Results 09/09/17 09/09/17 09/09/17 Range/Units 15:00 15:00 15:00 WBC 10.8 H (3.8-10.6) k/uL RBC 4.88 (3.80-5.40) m/uL Hgb 13.9 (11.4-16.0) gm/dL Hct 43.0 (34.0-46.0) % MCV 88.0 (80.0-100.0) fL MCH 28.5 (25.0-35.0) pg MCHC 32.4 (31.0-37.0) g/dL RDW 12.7 (11.5-15.5) % Plt Count 312 (150-450) k/uL Neutrophils % 80 % Lymphocytes % 10 % Monocytes % 4 % Eosinophils % 3 % Basophils % 1 % Neutrophils # 8.6 H (1.3-7.7) k/uL Lymphocytes # 1.1 (1.0-4.8) k/uL Monocytes # 0.5 (0-1.0) k/uL Eosinophils # 0.4 (0-0.7) k/uL Basophils # 0.1 (0-0.2) k/uL PT (9.0-12.0) sec INR (<1.2) APTT (22.0-30.0) sec D-Dimer (<0.60) mg/L FEU Sodium 141 (137-145) mmol/L Potassium 3.9 (3.5-5.1) mmol/L Chloride 101 (98-107) mmol/L Carbon Dioxide 28 (22-30) mmol/L Anion Gap 12 mmol/L BUN 8 (7-17) mg/dL Creatinine 0.60 (0.52-1.04) mg/dL Est GFR (MDRD) Af Amer >60 (>60 ml/min/1.73 sqM) Est GFR (MDRD) Non-Af >60 (>60 ml/min/1.73 sqM) Glucose 110 H (74-99) mg/dL Calcium 10.1 (8.4-10.2) mg/dL Magnesium 2.0 (1.6-2.3) mg/dL Total Bilirubin 0.4 (0.2-1.3) mg/dL AST 20 (14-36) U/L ALT 54 H (9-52) U/L Alkaline Phosphatase 93 (38-126) U/L Total Creatine Kinase 83 (30-135) U/L CK-MB (CK-2) 0.5 (0.0-2.4) ng/mL CK-MB (CK-2) Rel Index 0.6 Troponin I <0.012 (0.000-0.034) ng/mL NT-Pro-B Natriuret Pep pg/mL Total Protein 7.2 (6.3-8.2) g/dL Albumin 4.5 (3.5-5.0) g/dL Influenza Type A RNA (Not Detectd) Influenza Type B (PCR) (Not Detectd) 09/09/17 09/09/17 09/09/17 Range/Units 15:00 15:00 15:00 WBC (3.8-10.6) k/uL RBC (3.80-5.40) m/uL Hgb (11.4-16.0) gm/dL Hct (34.0-46.0) % MCV (80.0-100.0) fL MCH (25.0-35.0) pg MCHC (31.0-37.0) g/dL RDW (11.5-15.5) % Plt Count (150-450) k/uL Neutrophils % % Lymphocytes % % Monocytes % % Eosinophils % % Basophils % % Neutrophils # (1.3-7.7) k/uL Lymphocytes # (1.0-4.8) k/uL Monocytes # (0-1.0) k/uL Eosinophils # (0-0.7) k/uL Basophils # (0-0.2) k/uL PT 9.8 (9.0-12.0) sec INR 1.0 (<1.2) APTT 24.0 (22.0-30.0) sec D-Dimer 0.58 (<0.60) mg/L FEU Sodium (137-145) mmol/L Potassium (3.5-5.1) mmol/L Chloride (98-107) mmol/L Carbon Dioxide (22-30) mmol/L Anion Gap mmol/L BUN (7-17) mg/dL Creatinine (0.52-1.04) mg/dL Est GFR (MDRD) Af Amer (>60 ml/min/1.73 sqM) Est GFR (MDRD) Non-Af (>60 ml/min/1.73 sqM) Glucose (74-99) mg/dL Calcium (8.4-10.2) mg/dL Magnesium (1.6-2.3) mg/dL Total Bilirubin (0.2-1.3) mg/dL AST (14-36) U/L ALT (9-52) U/L Alkaline Phosphatase (38-126) U/L Total Creatine Kinase (30-135) U/L CK-MB (CK-2) (0.0-2.4) ng/mL CK-MB (CK-2) Rel Index Troponin I (0.000-0.034) ng/mL NT-Pro-B Natriuret Pep 87 pg/mL Total Protein (6.3-8.2) g/dL Albumin (3.5-5.0) g/dL Influenza Type A RNA Not Detected (Not Detectd) Influenza Type B (PCR) Not Detected (Not Detectd) Disposition Clinical Impression: Asthma with exacerbation, Community acquired pneumonia Disposition: ADMITTED IP TO THIS HOSP Condition: Stable Referrals: Luis Mccabe DO [Primary Care Provider] - 1-2 days Decision to Admit Reason: Admit from EC Decision Date: 09/09/17 Decision Time: 16:47
[2017-09-09 15:21] LABS: Basophils # (A) 0.1 k/uL (0-0.2); Basophils % (A) 1 %; Eosinophils # (A) 0.4 k/uL (0-0.7); Eosinophils % (A) 3 %; HGB 13.9 gm/dL (11.4-16.0); Lymphocytes # (A) 1.1 k/uL (1.0-4.8); Lymphocytes % (A) 10 %; MCH 28.5 pg (25.0-35.0); MCHC 32.4 g/dL (31.0-37.0); Mean Platelet Volume 6.6; Monocytes # (A) 0.5 k/uL (0-1.0); Monocytes % (A) 4 %; Neutrophils # (A) 8.6 k/uL (1.3-7.7); Neutrophils % (A) 80 %; Platelet Count 312 k/uL (150-450); RBC 4.88 m/uL (3.80-5.40); RDW 12.7 % (11.5-15.5); WBC 10.8 k/uL (3.8-10.6)
[2017-09-09 15:30] LABS: D-Dimer 0.58 mg/L FEU (<0.60)
[2017-09-09 15:33] LABS: ALT 54 U/L (9-52); AST 20 U/L (14-36); Albumin 4.5 g/dL (3.5-5.0); Alkaline Phosphatase 93 U/L (38-126); Anion Gap 12 mmol/L; Blood Urea Nitrogen 8 mg/dL (7-17); Calcium 10.1 mg/dL (8.4-10.2); Carbon Dioxide 28 mmol/L (22-30); Chloride 101 mmol/L (98-107); Glucose 110 mg/dL (74-99); Potassium 3.9 mmol/L (3.5-5.1); Sodium 141 mmol/L (137-145); Total Bilirubin 0.4 mg/dL (0.2-1.3); Total Protein 7.2 g/dL (6.3-8.2)
[2017-09-09 15:34] LABS: Prothrombin Time 9.8 sec (9.0-12.0)
[2017-09-09 15:43] LABS: Creatine Kinase 83 U/L (30-135)
[2017-09-09 15:55] LABS: Creatine Kinase MB 0.5 ng/mL (0.0-2.4); Troponin I <0.012 ng/mL (0.000-0.034)
--- NOTE | 2017-09-09 15:57 | XR ---
EXAMINATION TYPE: XR chest 2V DATE OF EXAM: 09/09/2017 COMPARISON: Chest x-ray August 16, 2016. CT chest August 11, 2016. HISTORY: Difficulty in breathing. TECHNIQUE: Frontal and lateral views of the chest are obtained. FINDINGS: There is new left basilar opacity localized to the lingula on lateral view. There is sugge stion of new left-sided volume loss. Right lung remains clear. The cardiac silhouette size is upper limits of normal currently. The osseous structures are intact. IMPRESSION: New lingular atelectasis and/or infiltrate with new left-sided volume loss noted.
[2017-09-09] MEDS ORDERED: LEVOFLOXACIN 750MG-D5W PMX 750 MG in DEXTROSE/WATER 1 150ML.BAG IVPB STA (16:31)
[2017-09-09] MEDS ORDERED: DEXAMETHASONE SOD PHOSPHATE 10 MG/ML 1 ML VIAL IV STA (16:32)
[2017-09-09] MEDS: IPRATROPIUM-ALBUTEROL 3 ML NEB INHALATION SCH (19:42)
[2017-09-09] MEDS ORDERED: NITROGLYCERIN SL TABS 0.4 MG TAB SUBLINGUAL PRN (20:59)
[2017-09-09 22:03] LABS: Creatine Kinase 84 U/L (30-135)
[2017-09-09 22:16] LABS: Creatine Kinase MB 0.5 ng/mL (0.0-2.4); Troponin I <0.012 ng/mL (0.000-0.034)
[2017-09-09] MEDS: SODIUM CHLORIDE 0.9% 1,000 ML IV SCH (22:35)
[2017-09-09] MEDS ORDERED: RX INFO: IV CONTRAST WAS GIVEN 1 EACH MISC MISCELLANE PRN (22:55)
[2017-09-09] MEDS ORDERED: PIPERACILLIN-TAZOBACTAM 3.375 GM in DEXTROSE/WATER 1 50ML.BAG IVPB SCH (23:00)
[2017-09-10] MEDS ORDERED: KETOROLAC 30 MG/ML 1 ML VIAL IVP PRN (00:24)
--- NOTE | 2017-09-10 00:52 | CT ---
EXAMINATION TYPE: CT angio chest DATE OF EXAM: 09/10/2017 12:40 AM COMPARISON: 08/11/2016 HISTORY: R/O PE CT DLP: 343.60 mGycm Automated exposure control for dose reduction was used. CONTRAST: CTA scan of the thorax is performed with IV Contrast, patient injected with 70 mL of Omnipaque 350, p ulmonary embolism protocol. There are 3-D post processed images.. FINDINGS: There is dense pneumonic consolidation and atelectasis in the left lower lobe. I see no filling defec ts in the pulmonary arteries. There is no mediastinal adenopathy. There is occlusion of the left lowe r lobe bronchus. There is almost complete occlusion of the left upper lobe bronchus. Heart and medias tinum are shifted to the left side. The right lung is clear of consolidation. There is no pericardial effusion. There is a hiatal hernia noted. IMPRESSION: NO EVIDENCE OF PULMONARY EMBOLISM. THERE IS LEFT LOWER LOBE COMPLETE ATELECTASIS AND SOME PARTIAL ATE LECTASIS OF THE LEFT UPPER LOBE. THERE IS LEFT LOWER LOBE BRONCHIAL OBSTRUCTION. NATURE OF THIS OBSTR UCTION IS NOT CLEAR. THESE ABNORMALITIES ARE ESSENTIALLY NEW COMPARED TO THE OLD CT SCAN OF 08/11/2016. ENDOBRONCHIAL TUMOR IS POSSIBLE. FOLLOW-UP IS RECOMMENDED.
--- NOTE | 2017-09-10 06:25 | HP ---
HISTORY AND PHYSICAL DATE OF ADMISSION: 09/09/17 PRESENTING COMPLAINT: Short of breath. HISTORY OF PRESENTING COMPLAINT: This is a 46-year-old patient of Dr. Mccabe. Chronic stable medical conditions include diverticulosis, hypertension. In the past, patient had a perforated peptic ulcer. She did have a stapling done here and then she was transferred to [facility]. She was in the ICU there for about a week. The patient does smoke off and on for many years. Has also history of asthma. The patient woke up this morning, became short of breath and as she would walk around was getting more short of breath, felt the legs a little bit tight. No obvious fever. Minimal cough. No perspiration. Just short of breath. Minimal wheezing. No sputum production. Decided to come to the hospital. Also having some left-sided pleuritic chest pain on deep breathing. REVIEW OF SYSTEMS: Constitutional: Tired. HEENT none. Respiratory as above. Cardiovascular none. Gastrointestinal none. Genitourinary none. Musculoskeletal none. Dermatological and hematologic, lymphatic none. Psychiatry none. Neurological none. PAST MEDICAL HISTORY: Asthma, GERD, GI bleed from perforated ulcer, hypertension, diverticulitis, mitral valve regurgitation, migraines. PAST SURGICAL HISTORY: Tubal ligation, perforated peptic ulcer with clipping, then transferred to [facility]. SOCIAL HISTORY: Patient smoked off and on since age of 15. Lives with a fiancee. Does teach at the preschool. Alcohol occasional. FAMILY HISTORY: Cancer type unknown. HOME MEDICATIONS: Protonix 40 mg p.o. b.i.d. Zestoretic 10/12.5 one tab p.o. daily, iron 325 p.o. daily, vitamin D3 1000 units p.o. daily, Symbicort 160/4.5, 2 puffs b.i.d. Ventolin HFA 1 puff every 6 hours p.r.n. ALLERGIES: TO PENICILLIN, AMOXICILLIN, DOXYCYCLINE, SULFUR. PHYSICAL EXAMINATION: Vital signs on presentation: Temperature 99.4, pulse up to 103, respiration 22, blood pressure 160/111. Pulse ox 93% on 2 L. GENERAL APPEARANCE: Well built, BMI 34. Lying in bed, short of breath, uncomfortable appearing. Eyes: Pupils equal. Conjunctivae normal. HEENT: Oral cavity normal. Neck JVD not raised. Mass not palpable. Respiratory effort increased. Lungs left-sided bronchial breathing. Cardiovascular: Cardiovascular 1st and second sounds normal. Minimal edema. ABDOMEN: Soft, nontender. Liver and spleen not palpable. No mass palpable. Lymphatics: No lymph nodes palpable in the neck and axilla. Psychiatry: Alert and oriented x3. Mood and affect normal. Neurological: Pupils equal. Cranial nerves grossly intact. Power and sensation grossly intact. It may be noted that the patient is tachypneic at rest. LABORATORY DATA: White count 10.8, hemoglobin 13.9. D-dimer 0.58, potassium 3.9 BUN and creatinine is normal. Lactic acid is 4.8. Troponin x2 negative. Influenza A and B negative. Chest x-ray shows some new left-sided volume loss and appears to be a infiltrate on the left side. ASSESSMENT: 1. This patient started with acute shortness of breath this morning quite a bit short of breath with getting around the house and pleuritic chest pain. White count is slightly elevated. There is no fever but appears to be a lingular pneumonia. The patient's D-dimer is negative making pulmonary embolism extremely unlikely. 2. Moderate persistent asthma with some exacerbation. 3. Essential hypertension. 4. Peptic ulcer disease prior history of perforation. 5. Diverticulosis. 6. Obesity BMI 34.0. PLAN: Patient is started on IV Levaquin. Home medications are resumed. We will give subcu heparin for DVT prophylaxis. Cannot give NSAIDs because of peptic ulcer disease. We will consult Pulmonary and to make sure we will order a CT angio to rule out PE, though the D-dimer is small. The patient's proBNP is only 87 making CHF, less likely. Care was discussed with the patient. Questions were answered. Copy to Dr. Mccabe. MMARUNL / IJN: [id number] /
[2017-09-10] MEDS: IPRATROPIUM-ALBUTEROL 3 ML NEB INHALATION SCH ×4 (07:33→19:55)
[2017-09-10] MEDS: FERROUS SULFATE 325 MG TAB PO SCH (08:18)
[2017-09-10] MEDS: CHOLECALCIFEROL 1,000 UNIT TAB PO SCH (08:18)
[2017-09-10] MEDS: SODIUM CHLORIDE 0.9% 1,000 ML IV SCH ×3 (08:18→16:28)
[2017-09-10] MEDS: PANTOPRAZOLE 40 MG TABLET PO SCH ×2 (08:18→16:28)
[2017-09-10] MEDS: LISINOPRIL-HCTZ 10-12.5 MG 1 EACH TAB PO SCH (08:18)
[2017-09-10] MEDS: ENOXAPARIN 40 MG/0.4 ML SYRINGE SQ SCH (08:18)
[2017-09-10] MEDS: predniSONE 20 MG TAB PO SCH (08:18)
[2017-09-10 08:39] LABS: Basophils % (A) 0 %; Eosinophils % (A) 0 %; HCT 45.8 % (34.0-46.0); HGB 14.6 gm/dL (11.4-16.0); Lymphocytes # (A) 1.2 k/uL (1.0-4.8); Lymphocytes % (A) 9 %; MCH 28.4 pg (25.0-35.0); MCHC 31.9 g/dL (31.0-37.0); MCV 89.1 fL (80.0-100.0); Mean Platelet Volume 6.9; Monocytes # (A) 0.4 k/uL (0-1.0); Monocytes % (A) 3 %; Neutrophils # (A) 11.3 k/uL (1.3-7.7); Neutrophils % (A) 86 %; Platelet Count 342 k/uL (150-450); RBC 5.14 m/uL (3.80-5.40); RDW 12.7 % (11.5-15.5); WBC 13.1 k/uL (3.8-10.6)
--- NOTE | 2017-09-10 11:48 | P.CNPUL ---
History of Present Illness Consult date: 09/10/17 Requesting physician: Nikita Flynn Reason for consult: dyspnea, abnormal CXR/CT Chief complaint: Shortness of breath, cough, congestion, weakness History of present illness: This is a very pleasant 46-year-old female patient who follows with Dr. Mccabe as her primary care physician. She has a previous history of hypertension, gastroesophageal reflux disease, chronic bronchial asthma, gastrointestinal bleeding status post endoscopy with subsequent perforation in August 2016. She is treated with Symbicort and Ventolin in the outpatient setting for her asthma. She states she rarely has exacerbations. She is an occasional smoker once or twice a month if out with friends. She presented here yesterday with complaints of increasing shortness of breath left-sided chest discomfort cough and congestion. She was seen in the urgent care facility who performed chest x- ray EKG and transferred the patient here by ambulance. Her influenza screen has been negative 2. Her chest x-ray revealed evidence of lingular infiltrate with left lower lobe volume loss. Right lung is clear. A CT angiogram ruled out pulmonary embolism. There is a left lower lobe complete atelectasis and some partial atelectasis of the left upper lobe. There is left lower lobe bronchial obstruction, the nature of which is unclear possible mucous plug versus endobronchial tumor. White count 13.1. Neutrophils 11.3. Initial lactic acid 4.8 currently down to 1.3. Troponins are negative 2. ProBNP 87. Influenza screen is negative. She has been initiated on DuoNeb inhalations, Levaquin, prednisone 40 mg. She is seen today in consultation on the regular medical floor. She is awake and alert in no acute distress. She is having a productive cough. She is breathing slightly easier today as compared to yesterday. She is maintaining O2 saturations in the mid 90s on 4 L/m per nasal cannula. No tachycardia cardia. No tachypnea. Currently afebrile. Hemodynamically stable. Review of Systems 14 point review of system was conducted. All negative other than as mentioned in the HPI. Past Medical History Past Medical History: Asthma, GERD/Reflux, GI Bleed, Hypertension Additional Past Medical History / Comment(s): diverticulitis, ulcers, "mitral valve regurgitaion", migarines. ANEMIA. GI BLEED 08/2016 History of Any Multi-Drug Resistant Organisms: None Reported Past Surgical History: Tubal Ligation Additional Past Surgical History / Comment(s): exploratory GI surgery at age 6 months. EGD 08/17/16 WITH PERFORATION-SPENT 5 DAYS AT [facility] IN ICU Past Anesthesia/Blood Transfusion Reactions: Motion Sickness, Postoperative Nausea & Vomiting (PONV) Additional Past Anesthesia/Blood Transfusion Reaction / Comment(s): blood transfusion-no reaction Smoking Status: Current some day smoker - Past Family History Father Family Medical History: Cancer Medications and Allergies Home Medications Medication Instructions Recorded Confirmed Type Albuterol Inhaler [Ventolin Hfa 1 puff INHALATION RT-Q6H PRN 08/10/16 09/09/17 History Inhaler] Budesonide/Formoterol Fumarate 2 puff INHALATION RT-BID 08/10/16 09/09/17 History [Symbicort 160-4.5 Mcg Inhaler] Lisinopril-Hctz 10-12.5 mg 1 tab PO DAILY 08/10/16 09/09/17 History [Zestoretic 10-12.5] Pantoprazole [Protonix] 40 mg PO BID 08/16/16 09/09/17 History Ferrous Sulfate [Feosol] 325 mg PO DAILY 02/17/17 09/09/17 History Cholecalciferol [Vitamin D3] 1,000 unit PO DAILY 09/09/17 09/09/17 History Allergies Allergy/AdvReac Type Severity Reaction Status Date / Time Penicillins Allergy SEIZURE Verified 09/09/17 15:44 amoxicillin AdvReac Nausea & Verified 09/09/17 15:44 Vomiting & Diarrhea doxycycline AdvReac Swelling Verified 09/09/17 15:44 Sulfa (Sulfonamide AdvReac Itching Verified 09/09/17 15:44 Antibiotics) Physical Exam Vitals: Vital Signs Temp Pulse Pulse Resp BP BP BP 09/10/17 11:31 90 09/10/17 11:21 88 09/10/17 08:00 84 18 09/10/17 07:43 84 09/10/17 07:33 80 09/10/17 07:00 98.1 F 84 18 138/95 09/09/17 23:00 97.1 F L 97 18 156/77 09/09/17 20:50 97.2 F L 100 20 144/92 09/09/17 19:55 84 09/09/17 19:42 84 09/09/17 19:04 96.6 F L 80 18 132/75 09/09/17 18:42 98.6 F 78 20 164/89 09/09/17 16:32 09/09/17 16:27 97.9 F 88 18 147/88 09/09/17 15:44 90 20 163/100 09/09/17 15:37 90 09/09/17 15:23 103 H 09/09/17 14:50 99.4 F 88 22 160/101 Pulse Ox 09/10/17 11:31 09/10/17 11:21 09/10/17 08:00 09/10/17 07:43 09/10/17 07:33 09/10/17 07:00 93 L 09/09/17 23:00 92 L 09/09/17 20:50 92 L 09/09/17 19:55 09/09/17 19:42 95 09/09/17 19:04 92 L 09/09/17 18:42 94 L 09/09/17 16:32 94 L 09/09/17 16:27 89 L 09/09/17 15:44 93 L 09/09/17 15:37 09/09/17 15:23 09/09/17 14:50 93 L Intake and Output 09/09/17 09/10/17 09/10/17 22:59 06:59 14:59 Other: Voiding Method Toilet Toilet # Voids 2 1 GENERAL EXAM: Alert, active, comfortable in no apparent distress. HEAD: Normocephalic. EYES: Normal reaction of pupils, equal size. NOSE: Clear with pink turbinates. THROAT: No erythema or exudates. NECK: No masses, no JVD. CHEST: No chest wall deformity. LUNGS: Equal air entry with scattered rhonchi crackles in the bases, left lower lobe. CVS: S1 and S2 normal with no audible murmur, regular rhythm. ABDOMEN: No hepatosplenomegaly, normal bowel sounds, no guarding or rigidity. SPINE: No scoliosis or deformity SKIN: No rashes CENTRAL NERVOUS SYSTEM: No focal deficits, tone is normal in all 4 extremities. EXTREMITIES: There is no peripheral edema. No clubbing, no cyanosis. Peripheral pulses are intact. Results - Laboratory Findings CBC and BMP: 09/10/17 08:20 09/09/17 15:00 PT/INR, D-dimer PT 9.8 sec (9.0-12.0) 09/09/17 15:00 INR 1.0 (<1.2) 09/09/17 15:00 D-Dimer 0.58 mg/L FEU (<0.60) 09/09/17 15:00 Abnormal lab findings: Abnormal Labs 09/09/17 09/09/17 09/09/17 15:00 15:00 21:22 WBC 10.8 H Neutrophils # 8.6 H Glucose 110 H Plasma Lactic Acid Bandar 4.8 H* ALT 54 H 09/10/17 09/10/17 01:20 08:20 WBC 13.1 H Neutrophils # 11.3 H Glucose Plasma Lactic Acid Bandar 2.5 H* ALT - Diagnostic Findings Chest x-ray: image reviewed CT scan - chest: image reviewed Assessment and Plan Assessment: Impression: #1 Acute community-acquired left lower lobe pneumonia with suspected postobstructive collapse. Endobronchial tumor is within the differential. #2 Acute hypoxic respiratory failure secondary to above. #3 Chronic tobacco use. #4 Hypertension. #5 History of mild intermittent asthma maintained on Symbicort and Ventolin in the outpatient setting. #6 History of GI bleed status post EGD with perforation requiring clipping. Plan: The patient was seen and evaluated by Dr. Jain. Her chest x-ray labs and CT angiogram were all reviewed. He is recommending bronchoscopy with BAL of that left lower lobe and to rule out any possible endobronchial tumor. The patient is somewhat reluctant based on her history of complications from EGD in the past. She may choose to wait a day or 2 to see if her pneumonia clears. In the interim we'll continue with DuoNeb inhalations every 4 hours, Pulmicort inhalations twice a day, IV Solu-Medrol, Levaquin. We will increase her activity as tolerated. She is encouraged regarding the importance of complete smoking cessation though she states she smokes only once or twice a month if out. Her father did pass away from lung cancer. We will continue to follow and make further recommendations based on her clinical status. I, the cosigning physician, performed a history & physical examination of the patient. Lungs sounds have scattered rhonchi in the left lung. Crackles in the posterior bases.. Maintaining good O2 saturations in the 90s on 4 L/m per nasal cannula. I discussed the assessment and plan of care with my nurse practitioner, Philomena Cooley. I attest to the above note as dictated by her. Time with Patient: Greater than 30
[2017-09-10] MEDS: LEVOFLOXACIN 750MG-D5W PMX 750 MG in DEXTROSE/WATER 1 150ML.BAG IVPB SCH (16:28)
[2017-09-10] MEDS: BUDESONIDE 1 MG/2 ML NEBU INHALATION SCH (19:55)
--- NOTE | 2017-09-10 22:26 | P.PN ---
Progress Note - Text Progress Note Date: 09/10/17 DATE OF SERVICE: 09/10/2017 PRESENTING COMPLAINT: Short of breath HISTORY OF PRESENT ILLNESS: 46-year-old female this morning feeling very short of breath and as she perform daily activities became more short of breath. No obvious fever. Minimal cough. Had left pleuritic chest pain on deep inspiration. Came in to the emergency department for further evaluation, imaging revealed lingular pneumonia. Admitted for the same. INTERVAL HISTORY: 09/10/2017: Patient sitting up in bed appears very anxious. Walking back from the bathroom short of breath even with 4 L of oxygen on. Seen by pulmonology concerned about having a bronchoscopy done. Patient questions were answered. Appetite is improving, eating between 30 and 40% of her meals. Ambulatory with some assistance. Last BM prior to admission. REVIEW OF SYSTEMS: Done for constitutional ,cardiovascular, GI, pulmonary with relevant findings as above. CURRENT MEDICATIONS Albuterol, Pulmicort, cholecalciferol, Lovenox, Feosol, Zestoretic, Toradol, levofloxacin, tetracycline, Protonix, prednisone, normal saline at 100 mL an hour. PHYSICAL EXAM VITAL SIGNS: Temperature 98.1, pulse 84, respiratory rate 18, blood pressure 138/95, oxygen saturation 93% on 4 L. GENERAL APPEARANCE: Sitting up in bed, mildly anxious and ill appearing. HENT: Normocephalic, JVD not raised. Mass not palpable. Oral cavity normal, external appearance of ears and nose normal. EYES:Pupils equal. Conjunctiva normal. RESPIRATORY: Respiratory effort increased Lungs left-sided bronchial breathing and i wheezing to auscultation. CARDIOVASCULAR: First and second sounds normal. No edema. ABDOMEN: Soft. Liver and spleen not palpable. No tenderness. No mass palpable. PSYCHIATRY: Alert and oriented x3. Mood and affect anxious appearing INVESTIGATIONS: White blood cell count 13.1, Chest CTA: Negative for pulmonary embolism, left lower lobe complete atelectasis partial atelectasis of the left upper lobe and left lower lobe bronchial obstruction. ASSESSMENT: -Acute community acquired left lower lobe pneumonia with subsequent infected postobstructive collapse, in the differential lingular pneumonia, endobronchial tumor -Moderate persistent asthma with some exacerbation. -Essential hypertension. -Peptic ulcer disease prior history of perforation. -Diverticulosis. -Obesity body mass index of 34.0 PLAN: Continue IV antibiotics, breathing treatments, steroids and patient is agreeable to have bronchoscopy with BAL with pulmonology. May be done tomorrow. Plan of care discussed at the bedside with the patient she is agreeable. We will follow closely. APPLIANCE FIXER statement: Patient was seen and examined by nurse practitioner Adriana Dolan and all elements of the case discussed with attending Dr. Flynn
[2017-09-11] MEDS: IPRATROPIUM-ALBUTEROL 3 ML NEB INHALATION PRN ×2 (04:35→13:13)
[2017-09-11] MEDS: SODIUM CHLORIDE 0.9% 1,000 ML IV SCH ×2 (05:20→14:48)
--- NOTE | 2017-09-11 05:40 | PN ---
PROGRESS NOTE DATE OF SERVICE: 09/10/2017 ATTENDING NOTE: The patient was seen and examined by me. Discussed with nurse practitioner, Ms. Dolan. This is a patient admitted with rather severe pneumonia. PE was ruled out. This morning pleuritic pain a bit better. Family is at the bedside. On examination, afebrile. White count 13.1. CT scan of chest was negative for PE, which shows possible collapse with endobronchial tumor suspected. ASSESSMENT: Severe pneumonia with suspected postobstructive collapse. Bronchoscopy definitely will be beneficial. At this point, continue with IV antibiotics, breathing treatments, steroids. Care was discussed with the patient and family at the bedside. Prognosis guarded. MMODL / IJN: [id number] /
[2017-09-11] MEDS: BUDESONIDE 1 MG/2 ML NEBU INHALATION SCH ×2 (08:10→20:29)
[2017-09-11] MEDS: IPRATROPIUM-ALBUTEROL 3 ML NEB INHALATION SCH ×4 (08:10→20:29)
--- NOTE | 2017-09-11 11:35 | P.PN ---
Subjective Progress Note Date: 09/11/17 Principal diagnosis: Acute community-acquired Left lower lobe pneumonia with postobstructive collapse. Rule out endobronchial lesion. This is a very pleasant 46-year-old female patient who follows with Dr. Mccabe as her primary care physician. She has a previous history of hypertension, gastroesophageal reflux disease, chronic bronchial asthma, gastrointestinal bleeding status post endoscopy with subsequent perforation in August 2016. She is treated with Symbicort and Ventolin in the outpatient setting for her asthma. She states she rarely has exacerbations. She is an occasional smoker once or twice a month if out with friends. She presented here yesterday with complaints of increasing shortness of breath left-sided chest discomfort cough and congestion. She was seen in the urgent care facility who performed chest x- ray EKG and transferred the patient here by ambulance. Her influenza screen has been negative 2. Her chest x-ray revealed evidence of lingular infiltrate with left lower lobe volume loss. Right lung is clear. A CT angiogram ruled out pulmonary embolism. There is a left lower lobe complete atelectasis and some partial atelectasis of the left upper lobe. There is left lower lobe bronchial obstruction, the nature of which is unclear possible mucous plug versus endobronchial tumor. White count 13.1. Neutrophils 11.3. Initial lactic acid 4.8 currently down to 1.3. Troponins are negative 2. ProBNP 87. Influenza screen is negative. She has been initiated on DuoNeb inhalations, Levaquin, prednisone 40 mg. She is seen today in consultation on the regular medical floor. She is awake and alert in no acute distress. She is having a productive cough. She is breathing slightly easier today as compared to yesterday. She is maintaining O2 saturations in the mid 90s on 4 L/m per nasal cannula. No tachycardia cardia. No tachypnea. Currently afebrile. Hemodynamically stable. The patient is seen again today 09/11/2017 in follow-up on the regular medical floor. She is awake and alert in no acute distress. She is breathing easier today as compared to yesterday. Still some loose nonproductive cough. She is maintaining good O2 saturations in the mid 90s on 2 L/m per nasal cannula. She' s been afebrile. No tachycardia. No tachypnea. Hemodynamically stable. Blood culture reveals no growth to date. The plan is for bronchoscopy today. Objective - Vital Signs Vital signs: Vital Signs Temp 97.2 F L 09/11/17 07:00 Pulse 72 09/11/17 08:25 Resp 16 09/11/17 07:00 BP 135/75 09/11/17 07:00 Pulse Ox 95 09/11/17 08:12 Intake & Output 09/10/17 09/11/17 09/11/17 18:59 06:59 18:59 Intake Total 500 200 Balance 500 200 Intake: IV 500 Sodium Chloride 0.9% 1, 500 000 ml @ 100 mls/hr IV . Q10H GERMÁN Rx#:[id number] Oral 200 Other: Voiding Method Toilet Toilet # Voids 2 1 - Exam GENERAL EXAM: Alert, active, comfortable in no apparent distress. HEAD: Normocephalic. EYES: Normal reaction of pupils, equal size. NOSE: Clear with pink turbinates. THROAT: No erythema or exudates. NECK: No masses, no JVD. CHEST: No chest wall deformity. LUNGS: Equal air entry with scattered rhonchi crackles in the bases, left lower lobe. CVS: S1 and S2 normal with no audible murmur, regular rhythm. ABDOMEN: No hepatosplenomegaly, normal bowel sounds, no guarding or rigidity. SPINE: No scoliosis or deformity SKIN: No rashes CENTRAL NERVOUS SYSTEM: No focal deficits, tone is normal in all 4 extremities. EXTREMITIES: There is no peripheral edema. No clubbing, no cyanosis. Peripheral pulses are intact. - Labs CBC & Chem 7: 09/10/17 08:20 09/09/17 15:00 Labs: Microbiology - Last 24 Hours (Table) 09/09/17 15:00 Blood Culture - Preliminary Blood No Growth after 24 hours Assessment and Plan Assessment: Impression: #1 Acute community-acquired left lower lobe pneumonia with suspected postobstructive collapse. Endobronchial tumor is within the differential. The plan is for bronchoscopy with BAL and possible biopsy if endobronchial lesion found. #2 Acute hypoxic respiratory failure secondary to above. #3 Chronic tobacco use. #4 Hypertension. #5 History of mild intermittent asthma maintained on Symbicort and Ventolin in the outpatient setting. #6 History of GI bleed status post EGD with perforation requiring clipping. Plan: The patient was seen and evaluated by Dr. Jain. The patient is agreeable to bronchoscopy which will be performed today. In the interim, we'll continue with DuoNeb inhalations every 4 hours, Pulmicort inhalations twice a day, IV Solu-Medrol, Levaquin. We will increase her activity as tolerated. We will continue to follow and make further recommendations based on her clinical status. I, the cosigning physician, performed a history & physical examination of the patient. Lungs sounds have scattered rhonchi in the left lung. Diminished.. Maintaining good O2 saturations in the 90s on 2 L/m per nasal cannula. I discussed the assessment and plan of care with my nurse practitioner, Philomena Cooley. I attest to the above note as dictated by her.
[2017-09-11] MEDS: PANTOPRAZOLE 40 MG TABLET PO SCH ×2 (12:07→17:31)
[2017-09-11] MEDS: CHOLECALCIFEROL 1,000 UNIT TAB PO SCH (12:07)
[2017-09-11] MEDS: LISINOPRIL-HCTZ 10-12.5 MG 1 EACH TAB PO SCH (12:08)
[2017-09-11] MEDS: FERROUS SULFATE 325 MG TAB PO SCH (12:08)
[2017-09-11] MEDS: ENOXAPARIN 40 MG/0.4 ML SYRINGE SQ SCH (12:08)
[2017-09-11] MEDS: predniSONE 20 MG TAB PO SCH (12:13)
[2017-09-11] MEDS ORDERED: LACTATED RINGERS 1,000 ML IV ONE (12:39)
[2017-09-11] MEDS ORDERED: SODIUM CHLORIDE 0.9% 1,000 ML IV ONE (12:39)
[2017-09-11] MEDS ORDERED: GLYCOPYRROLATE 0.2 MG/ML 2 ML VIAL ONE (12:40)
[2017-09-11] MEDS ORDERED: fentaNYL (PF) 50 MCG/ML 2 ML AMP ONE (12:40)
[2017-09-11] MEDS ORDERED: LIDOCAINE 1% INJ 10MG/ML (20 ML MDV) ONE (12:40)
[2017-09-11] MEDS ORDERED: PROPOFOL 10 MG/ML 20 ML VIAL IV ONE (12:40)
[2017-09-11] MEDS ORDERED: LIDOCAINE 2% INJ 20 MG/ML INTRATRACH ONE (13:02)
[2017-09-11] MEDS ORDERED: methylPREDNISolone SOD SUCCI 125 MG/2 ML VIAL IV STA (13:20)
[2017-09-11] MEDS ORDERED: methylPREDNISolone SOD SUCCI 125 MG/2 ML VIAL IVP ONE (13:26)
--- NOTE | 2017-09-11 14:02 | PCN ---
PROCEDURE NOTE PROCEDURE: Bronchoscopy and bronchoalveolar lavage of the left lower lobe. PREOPERATIVE DIAGNOSIS: Left lower lobe collapse, possible endobronchial tumor with postobstructive pneumonitis. POSTOPERATIVE DIAGNOSIS: Left lower lobe pneumonia, consolidation. ANESTHESIA USED: IV conscious sedation. Please refer to DIET CONSULTANT documentation. DESCRIPTION OF PROCEDURE: Patient was prepared according to the bronchoscopy protocol. She was placed in a supine position, O2 was applied via a Venti mask. A few mL of lidocaine were instilled into the right naris. We monitored her O2 saturation continuously, we also monitored her cardiac rhythm continuously, blood pressure was intermittently monitored. After adequate IV conscious sedation, the bronchoscope was a initially inserted through the left naris, but was noted to be very narrow, and small mucosal bleeding was noted. Then, we moved to the right naris, and the bronchoscope was inserted easily into the right naris, advanced into the area of the vocal cords, which were noted to be patent. Lidocaine was applied over the vocal cords and the bronchoscope was advanced further down to the different areas of the lungs; however, as we entered the trachea, there was significant desaturation. Patient desaturated down to the 70s. Then, the bronchoscope was pulled out of the airways, and patient was Ambu bagged. Until saturation came back up, I was able to go back again and I could visualize the lower lobes easily, but no evidence of any endobronchial tumor was noted. The mucosa was noted to be extremely bronchitic, there was purulent secretions noted, which were suctioned and lavage of the left lower lobe was done. However, because of desaturation again, I could not spend a lot of time examining the left lower lobe, but from the initial evaluation, I did not appreciate any endobronchial tumor. Lavage from the left lower lobe was sent for different diagnostic studies including cytology. Procedure was well tolerated. However, the patient desaturated during the procedure twice, we had to Ambu bag at the end of the procedure, and she was given an updraft treatment after the procedure for reactive bronchospasm. Patient was also given Solu-Medrol 125 mg IV push, and placed on Solu-Medrol 60 mg IV push every 6 hours. The updraft treatment given was DuoNeb 2.5/0.5 mg updraft treatment. The patient will be discharged from the [facility] in stable condition. MMODL / IJN: [id number] /
--- NOTE | 2017-09-11 14:18 | XR ---
EXAMINATION TYPE: XR chest 1V portable DATE OF EXAM: 09/11/2017 COMPARISON: Prior chest x-ray 09/09/2017 HISTORY: Left lower lobe pneumonia, status post bronchoscopy TECHNIQUE: Single frontal view of the chest is obtained. FINDINGS: Retrocardiac density is present. There is no evident pneumothorax. Heart size is stable. IMPRESSION: No evident complication status post bronchoscopy.
[2017-09-11 17:22] LABS: Glucose,Whole Blood 173 mg/dL (75-99)
[2017-09-11] MEDS: LEVOFLOXACIN 750MG-D5W PMX 750 MG in DEXTROSE/WATER 1 150ML.BAG IVPB SCH (17:31)
[2017-09-11] MEDS: methylPREDNISolone SOD SUCCI 40 MG/ML 1 ML VIAL IV SCH ×2 (18:54→23:37)
[2017-09-11 21:24] LABS: Glucose,Whole Blood 274 mg/dL (75-99)
[2017-09-11] MEDS: MELATONIN 3 MG TABLET PO SCH (21:40)
[2017-09-11] MEDS: INSULIN ASPART 100 UNIT/ML 1 ML 10 ML VIAL SQ SCH (22:17)
--- NOTE | 2017-09-11 23:22 | P.PN ---
Progress Note - Text Progress Note Date: 09/11/17 DATE OF SERVICE: 09/11/2017 PRESENTING COMPLAINT: Short of breath HISTORY OF PRESENT ILLNESS: 46-year-old female this morning feeling very short of breath and as she perform daily activities became more short of breath. No obvious fever. Minimal cough. Had left pleuritic chest pain on deep inspiration. Came in to the emergency department for further evaluation, imaging revealed lingular pneumonia. Admitted for the same. INTERVAL HISTORY: 09/11/2016: Sitting up in bed appears very anxious, just returned from bronchoscopy. Continues to be short of breath remains on 2 L of oxygen. 09/10/2017: Patient sitting up in bed appears very anxious. Walking back from the bathroom short of breath even with 4 L of oxygen on. Seen by pulmonology concerned about having a bronchoscopy done. Patient questions were answered. Appetite is improving, eating between 30 and 40% of her meals. Ambulatory with some assistance. Last BM prior to admission. REVIEW OF SYSTEMS: Done for constitutional ,cardiovascular, GI, pulmonary with relevant findings as above. CURRENT MEDICATIONS Albuterol, Pulmicort, cholecalciferol, Lovenox, Feosol, Zestoretic, Toradol, levofloxacin, tetracycline, Protonix, prednisone, normal saline at 100 mL an hour. PHYSICAL EXAM VITAL SIGNS: Temp temperature 97.2, pulse 69, respiratory rate 16, blood pressure 135/75, oxygen saturation 97% on 2 L. GENERAL APPEARANCE: Sitting up in bed, mildly anxious and ill appearing. HENT: Normocephalic, JVD not raised. Mass not palpable. Oral cavity normal, external appearance of ears and nose normal. EYES:Pupils equal. Conjunctiva normal. RESPIRATORY: Respiratory effort increased Lungs left-sided bronchial breathing and i wheezing to auscultation. CARDIOVASCULAR: First and second sounds normal. No edema. ABDOMEN: Soft. Liver and spleen not palpable. No tenderness. No mass palpable. PSYCHIATRY: Alert and oriented x3. Mood and affect anxious appearing INVESTIGATIONS: LABS: White blood cell count 13.1, Accu-Cheks noted. Bronchoscopy with BAL to the left lower lobe: Purulence with no evidence of endobronchial tumor Chest x-ray: No evident complications status post bronchoscopy. ASSESSMENT: -Acute severe community acquired left lower lobe pneumonia with subsequent infected postobstructive collapse, status post bronchoscopy, improving -Moderate persistent asthma with some exacerbation. -Essential hypertension. -Peptic ulcer disease prior history of perforation. -Diverticulosis. -Obesity body mass index of 34.0 PLAN: Continue IV antibiotics, breathing treatments, steroids. Bronchoscopy completed with no evidence of endobronchial tumor, pathology pending. Plan of care discussed at the bedside with the patient she is agreeable. Discharge planning for the next 24-48 hours. We will follow closely. HYDROELECTRIC PLANT MAINTAINER statement: Patient was seen and examined by nurse practitioner Adriana Dolan and all elements of the case discussed with attending Dr. Flynn
[2017-09-12] MEDS: methylPREDNISolone SOD SUCCI 40 MG/ML 1 ML VIAL IV SCH ×3 (06:32→18:11)
--- NOTE | 2017-09-12 06:45 | PN ---
PROGRESS NOTE DATE OF SERVICE: 09/11/17 PRESENTING COMPLAINT: Short of breath. INTERVAL HISTORY: This patient presented with pneumonia. There was concern about endobronchial tumor. Patient was taken for bronchoscopy today. The patient did desaturate twice during the procedure, but a lot of thick secretions were done. Not all the lobes could be fully accessed per the procedure note, but does seemed that a lot of thick bronchitis secretions were obtained. Postprocedure, the patient is a bit tired. Family at the bedside. REVIEW OF SYSTEMS: Done for constitutional, cardiovascular, GI, pulmonary; relevant findings as above. CURRENT MEDICATIONS: Reviewed that include IV Levaquin. PHYSICAL EXAMINATION: Temperature 97.7, pulse 98, respiratory 18, blood pressure 130/79, pulse 92 on 4 L. GENERAL APPEARANCE: Sitting up tired appearing. EYES: Conjunctivae normal. HEENT: Normocephalic. Oral cavity dry. NECK: JVD not raised. Mass not palpable. RESPIRATORY: Effort increased. Lungs decreased breath sounds on the left side. Some mild crackles. CARDIOVASCULAR: 1st and 2nd sounds normal. No edema. ABDOMEN: Soft, nontender. Liver and spleen not palpable. No mass palpable. PSYCHIATRY: Alert and oriented x3. Mood is slightly anxious-appearing. INVESTIGATIONS: White count 13.2, hemoglobin 14.6. ASSESSMENT: 1. Acute severe community-acquired left lower lobe pneumonia with possible postobstructive collapse status post bronchoscopy with a lot of secretions obtained. No obvious endobronchial tumor was seen. 2. Moderate persistent asthma with exacerbation. 3. Essential hypertension. 4. Peptic ulcer disease. 5. Diverticulosis colonic. 6. Obesity, BMI 34.0. 7. Acute hypoxic respiratory failure from pneumonia. PLAN: Care was discussed at length with the patient and family members at the bedside. The patient is to continue with Levaquin at the present time. The patient is also on Solu- Medrol and inhaled steroids. Will await cultures. The patient responding slowly. Follow. MMODL / IJN: [id number] /
[2017-09-12 07:54] LABS: Glucose,Whole Blood 166 mg/dL (75-99)
[2017-09-12] MEDS: INSULIN ASPART 100 UNIT/ML 1 ML 10 ML VIAL SQ SCH ×4 (08:02→21:29)
[2017-09-12] MEDS: CHOLECALCIFEROL 1,000 UNIT TAB PO SCH (08:02)
[2017-09-12] MEDS: PANTOPRAZOLE 40 MG TABLET PO SCH ×2 (08:02→17:28)
[2017-09-12] MEDS: ENOXAPARIN 40 MG/0.4 ML SYRINGE SQ SCH (08:02)
[2017-09-12] MEDS: FERROUS SULFATE 325 MG TAB PO SCH (08:02)
[2017-09-12] MEDS: LISINOPRIL-HCTZ 10-12.5 MG 1 EACH TAB PO SCH (08:02)
[2017-09-12] MEDS: BUDESONIDE 1 MG/2 ML NEBU INHALATION SCH ×2 (08:54→19:44)
[2017-09-12] MEDS: IPRATROPIUM-ALBUTEROL 3 ML NEB INHALATION SCH ×4 (08:54→19:44)
[2017-09-12 12:43] LABS: Glucose,Whole Blood 221 mg/dL (75-99)
--- NOTE | 2017-09-12 13:15 | P.PN ---
Subjective Progress Note Date: 09/12/17 Principal diagnosis: Acute community-acquired Left lower lobe pneumonia with postobstructive collapse. This is a very pleasant 46-year-old female patient who follows with Dr. Mccabe as her primary care physician. She has a previous history of hypertension, gastroesophageal reflux disease, chronic bronchial asthma, gastrointestinal bleeding status post endoscopy with subsequent perforation in August 2016. She is treated with Symbicort and Ventolin in the outpatient setting for her asthma. She states she rarely has exacerbations. She is an occasional smoker once or twice a month if out with friends. She presented here yesterday with complaints of increasing shortness of breath left-sided chest discomfort cough and congestion. She was seen in the urgent care facility who performed chest x- ray EKG and transferred the patient here by ambulance. Her influenza screen has been negative 2. Her chest x-ray revealed evidence of lingular infiltrate with left lower lobe volume loss. Right lung is clear. A CT angiogram ruled out pulmonary embolism. There is a left lower lobe complete atelectasis and some partial atelectasis of the left upper lobe. There is left lower lobe bronchial obstruction, the nature of which is unclear possible mucous plug versus endobronchial tumor. White count 13.1. Neutrophils 11.3. Initial lactic acid 4.8 currently down to 1.3. Troponins are negative 2. ProBNP 87. Influenza screen is negative. She has been initiated on DuoNeb inhalations, Levaquin, prednisone 40 mg. She is seen today in consultation on the regular medical floor. She is awake and alert in no acute distress. She is having a productive cough. She is breathing slightly easier today as compared to yesterday. She is maintaining O2 saturations in the mid 90s on 4 L/m per nasal cannula. No tachycardia cardia. No tachypnea. Currently afebrile. Hemodynamically stable. The patient is seen again today 09/11/2017 in follow-up on the regular medical floor. She is awake and alert in no acute distress. She is breathing easier today as compared to yesterday. Still some loose nonproductive cough. She is maintaining good O2 saturations in the mid 90s on 2 L/m per nasal cannula. She' s been afebrile. No tachycardia. No tachypnea. Hemodynamically stable. Blood culture reveals no growth to date. The plan is for bronchoscopy today. The patient is seen again today 09/12/2017 in follow-up on the regular medical floor. She is resting quite comfortably in bed. She states she is breathing quite a bit easier today as compared to yesterday. She did undergo bronchoscopy with BAL yesterday and significant amount of secretions were removed more so on the left lower lobe. Cultures are pending. Blood culture reveals no growth to date. She is maintaining good O2 saturations in the 90s on 3 L/m per nasal cannula. She's been afebrile. No tachycardia, no tachypnea. Objective - Vital Signs Vital signs: Vital Signs Temp 97.4 F L 09/12/17 07:00 Pulse 86 09/12/17 12:05 Resp 20 09/12/17 07:00 BP 124/86 09/12/17 07:00 Pulse Ox 92 L 09/12/17 07:00 Intake & Output 09/11/17 09/12/17 09/12/17 18:59 06:59 18:59 Intake Total 700 240 Balance 700 240 Intake: Oral 700 240 Other: # Voids 3 1 # Bowel Movements 1 - Exam GENERAL EXAM: Alert, active, comfortable in no apparent distress. HEAD: Normocephalic. EYES: Normal reaction of pupils, equal size. NOSE: Clear with pink turbinates. THROAT: No erythema or exudates. NECK: No masses, no JVD. CHEST: No chest wall deformity. LUNGS: Equal air entry with scattered rhonchi crackles in the bases, left lower lobe. CVS: S1 and S2 normal with no audible murmur, regular rhythm. ABDOMEN: No hepatosplenomegaly, normal bowel sounds, no guarding or rigidity. SPINE: No scoliosis or deformity SKIN: No rashes CENTRAL NERVOUS SYSTEM: No focal deficits, tone is normal in all 4 extremities. EXTREMITIES: There is no peripheral edema. No clubbing, no cyanosis. Peripheral pulses are intact. - Labs CBC & Chem 7: 09/10/17 08:20 09/09/17 15:00 Labs: Abnormal Lab Results - Last 24 Hours (Table) 09/11/17 09/11/17 09/12/17 Range/Units 17:20 21:19 00:12 POC Glucose (mg/dL) 173 H 274 H (75-99) mg/dL Plasma Lactic Acid Bandar 3.2 H* (0.7-2.0) mmol/L 09/12/17 09/12/17 09/12/17 Range/Units 03:44 07:22 12:27 POC Glucose (mg/dL) 166 H 221 H (75-99) mg/dL Plasma Lactic Acid Bandar 2.3 H* (0.7-2.0) mmol/L Microbiology - Last 24 Hours (Table) 09/11/17 12:00 Gram Stain - Preliminary Bronchial Washings - Left Bronchial Washings Culture - Preliminary 09/11/17 12:00 Acid Fast Bacilli Culture - Preliminary Bronchial Washings - Left 09/11/17 12:00 Fungal Culture - Preliminary Bronchial Washings - Left 09/09/17 15:00 Blood Culture - Preliminary Blood No Growth after 48 hours Assessment and Plan Assessment: Impression: #1 Acute community-acquired left lower lobe pneumonia with suspected postobstructive collapse. Bronchoscopy with BAL performed to 2017. No evidence of endobronchial tumor. Cultures are pending. #2 Acute hypoxic respiratory failure secondary to above. #3 Chronic tobacco use. #4 Hypertension. #5 History of mild intermittent asthma maintained on Symbicort and Ventolin in the outpatient setting. #6 History of GI bleed status post EGD with perforation requiring clipping. Plan: The patient was seen and evaluated by Dr. Jain. We will increase her activity as tolerated. We will continue with her current medications. We'll continue to titrate down her FiO2 as tolerated. We will continue to follow and make further recommendations based on her clinical status. Probable discharge in the a.m. I, the cosigning physician, performed a history & physical examination of the patient. Lungs sounds have scattered rhonchi in the left lung. Diminished.. Maintaining good O2 saturations in the 90s on 2 L/m per nasal cannula. I discussed the assessment and plan of care with my nurse practitioner, Philomena Cooley. I attest to the above note as dictated by her.
[2017-09-12] MEDS: SODIUM CHLORIDE 0.9% 1,000 ML IV SCH (15:41)
[2017-09-12] MEDS: LEVOFLOXACIN 750 MG TAB PO SCH (17:28)
[2017-09-12 17:45] LABS: Glucose,Whole Blood 188 mg/dL (75-99)
[2017-09-12 20:42] LABS: Glucose,Whole Blood 178 mg/dL (75-99)
[2017-09-13] MEDS: MELATONIN 3 MG TABLET PO SCH ×2 (00:13→21:32)
[2017-09-13] MEDS: methylPREDNISolone SOD SUCCI 40 MG/ML 1 ML VIAL IV SCH ×2 (00:13→06:47)
--- NOTE | 2017-09-13 01:13 | P.PN ---
Progress Note - Text Progress Note Date: 09/12/17 DATE OF SERVICE: 09/12/2017 PRESENTING COMPLAINT: Short of breath HISTORY OF PRESENT ILLNESS: 46-year-old female this morning feeling very short of breath and as she perform daily activities became more short of breath. No obvious fever. Minimal cough. Had left pleuritic chest pain on deep inspiration. Came in to the emergency department for further evaluation, imaging revealed lingular pneumonia. Admitted for the same. INTERVAL HISTORY: 09/12/2017: Lying in bed appears comfortable. Breathing is much improved compared to yesterday. Oxygen saturations maintained on 3 L nasal cannula oxygen in the 90s. Remains afebrile, tolerating her diet eating between 40 and 50% of each meal. Ambulatory in the room and [place] ways. Last BM to 09/11/2017 09/11/2017: Sitting up in bed appears very anxious, just returned from bronchoscopy. Continues to be short of breath remains on 2 L of oxygen. States her breathing is improved. Continues to have a loose nonproductive cough. Ambulatory with some assistance, last BM to 09/11/2017 09/10/2017: Patient sitting up in bed appears very anxious. Walking back from the bathroom short of breath even with 4 L of oxygen on. Seen by pulmonology concerned about having a bronchoscopy done. Patient questions were answered. Appetite is improving, eating between 30 and 40% of her meals. Ambulatory with some assistance. Last BM prior to admission. REVIEW OF SYSTEMS: Done for constitutional ,cardiovascular, GI, pulmonary with relevant findings as above. CURRENT MEDICATIONS Albuterol, Pulmicort, cholecalciferol, Lovenox, Feosol, Zestoretic, Toradol, levofloxacin, tetracycline, Protonix, prednisone, normal saline at 100 mL an hour. PHYSICAL EXAM VITAL SIGNS: Temp temperature 97.2, pulse 69, respiratory rate 16, blood pressure 135/75, oxygen saturation 97% on 2 L. GENERAL APPEARANCE: Sitting up in bed, mildly anxious appearing. HENT: Normocephalic, JVD not raised. Mass not palpable. Oral cavity normal, external appearance of ears and nose normal. EYES:Pupils equal. Conjunctiva normal. RESPIRATORY: Respiratory effort increased Lungs left-sided bronchial breathing and wheezing to auscultation. CARDIOVASCULAR: First and second sounds normal. No edema. ABDOMEN: Soft. Liver and spleen not palpable. No tenderness. No mass palpable. PSYCHIATRY: Alert and oriented x3. Mood and affect anxious appearing INVESTIGATIONS: LABS: Accu-Cheks noted, lactic acid 2.3. Left lower lobe bronchial washings: In process Blood cultures: No growth after 72 hours. ASSESSMENT: -Acute severe community acquired left lower lobe pneumonia with subsequent infected postobstructive collapse, status post bronchoscopy, improving -Moderate persistent asthma with some exacerbation. -Essential hypertension. -Peptic ulcer disease prior history of perforation. -Diverticulosis. -Obesity body mass index of 34.0 PLAN: Continue IV antibiotics, breathing treatments, steroids. Left lower lobe bronchial washing cultures pending. Possible discharge planning for the next 24 -48 hours. Plan of care discussed at the bedside with the patient she is agreeable. Discharge planning for the next 24-48 hours. We will follow closely. IRRIGATION EQUIPMENT REMOVER statement: Patient was seen and examined by nurse practitioner Adriana Dolan and all elements of the case discussed with attending Dr. Flynn
[2017-09-13] MEDS: IPRATROPIUM-ALBUTEROL 3 ML NEB INHALATION SCH ×4 (07:34→19:24)
[2017-09-13] MEDS: BUDESONIDE 1 MG/2 ML NEBU INHALATION SCH ×2 (07:34→19:25)
[2017-09-13 07:39] LABS: HCT 40.3 % (34.0-46.0); HGB 12.9 gm/dL (11.4-16.0); MCH 28.5 pg (25.0-35.0); Mean Platelet Volume 6.5; Platelet Count 346 k/uL (150-450); RBC 4.53 m/uL (3.80-5.40); RDW 12.7 % (11.5-15.5); WBC 16.3 k/uL (3.8-10.6)
[2017-09-13 07:43] LABS: Glucose,Whole Blood 173 mg/dL (75-99)
--- NOTE | 2017-09-13 07:53 | PN ---
PROGRESS NOTE DATE OF SERVICE: September 12, 2017. ATTENDING NOTE: Patient seen and examined by me on September 12, 2017. Discussed with nurse practitioner, Ms. Dolan. Patient admitted with severe pneumonia status post bronchoscopy. The patient this morning is better on 3 L of oxygen. Has got a cough, not bringing up much. PHYSICAL EXAMINATION: On examination, afebrile, pulse 81, respiratory 20, blood pressure 122/86, pulse ox 92% on 3 L. lungs decreased breath sounds on the left side. Cardiovascular 1st and 2nd sounds normal. Psych AO x3. INVESTIGATION: Accu-Cheks noted. ASSESSMENT: 1. Acute severe left lobe pneumonia status post bronchoscopy with cultures came back negative. 2. Moderate persistent asthma exacerbation. PLAN: The patient is currently on DuoNeb, Pulmicort, Levaquin, IV Solu-Medrol. The patient started to improve. Repeat a chest x-ray in the morning. Get back on Solu-Medrol. Care was discussed with the patient's family at the bedside. MMODL / IJN: [id number] /
[2017-09-13 07:59] LABS: Anion Gap 8 mmol/L; Blood Urea Nitrogen 17 mg/dL (7-17); Calcium 10.3 mg/dL (8.4-10.2); Carbon Dioxide 29 mmol/L (22-30); Chloride 100 mmol/L (98-107); Glucose 175 mg/dL (74-99); Potassium 4.6 mmol/L (3.5-5.1); Sodium 137 mmol/L (137-145)
[2017-09-13] MEDS: INSULIN ASPART 100 UNIT/ML 1 ML 10 ML VIAL SQ SCH ×4 (08:05→21:32)
[2017-09-13] MEDS: PANTOPRAZOLE 40 MG TABLET PO SCH ×2 (08:06→18:10)
[2017-09-13] MEDS: ENOXAPARIN 40 MG/0.4 ML SYRINGE SQ SCH (08:06)
[2017-09-13] MEDS: CHOLECALCIFEROL 1,000 UNIT TAB PO SCH (08:06)
[2017-09-13] MEDS: FERROUS SULFATE 325 MG TAB PO SCH (08:07)
[2017-09-13] MEDS: LISINOPRIL-HCTZ 10-12.5 MG 1 EACH TAB PO SCH (08:27)
[2017-09-13] MEDS ORDERED: predniSONE 20 MG TAB PO SCH (09:00)
--- NOTE | 2017-09-13 09:56 | XR ---
EXAMINATION TYPE: XR chest 2V DATE OF EXAM: 09/13/2017 HISTORY: follow up pneumonia. REFERENCE: Previous study dated 09/11/2017. FINDINGS: There is minimal atelectasis at the left lung base. There is a calcified granuloma at the r ight lung base. The lungs are otherwise clear. The heart is upper limits of normal in size. There is a small, left effusion. IMPRESSION: 1. CONTINUING LEFT BASILAR ATELECTASIS. 2. BORDERLINE CARDIOMEGALY. 3. SMALL, LEFT-SIDED EFFUSION.
--- NOTE | 2017-09-13 11:28 | P.PN ---
Subjective Progress Note Date: 09/13/17 Principal diagnosis: Acute community-acquired Left lower lobe pneumonia with postobstructive collapse. This is a very pleasant 46-year-old female patient who follows with Dr. Mccabe as her primary care physician. She has a previous history of hypertension, gastroesophageal reflux disease, chronic bronchial asthma, gastrointestinal bleeding status post endoscopy with subsequent perforation in August 2016. She is treated with Symbicort and Ventolin in the outpatient setting for her asthma. She states she rarely has exacerbations. She is an occasional smoker once or twice a month if out with friends. She presented here yesterday with complaints of increasing shortness of breath left-sided chest discomfort cough and congestion. She was seen in the urgent care facility who performed chest x- ray EKG and transferred the patient here by ambulance. Her influenza screen has been negative 2. Her chest x-ray revealed evidence of lingular infiltrate with left lower lobe volume loss. Right lung is clear. A CT angiogram ruled out pulmonary embolism. There is a left lower lobe complete atelectasis and some partial atelectasis of the left upper lobe. There is left lower lobe bronchial obstruction, the nature of which is unclear possible mucous plug versus endobronchial tumor. White count 13.1. Neutrophils 11.3. Initial lactic acid 4.8 currently down to 1.3. Troponins are negative 2. ProBNP 87. Influenza screen is negative. She has been initiated on DuoNeb inhalations, Levaquin, prednisone 40 mg. She is seen today in consultation on the regular medical floor. She is awake and alert in no acute distress. She is having a productive cough. She is breathing slightly easier today as compared to yesterday. She is maintaining O2 saturations in the mid 90s on 4 L/m per nasal cannula. No tachycardia cardia. No tachypnea. Currently afebrile. Hemodynamically stable. The patient is seen again today 09/11/2017 in follow-up on the regular medical floor. She is awake and alert in no acute distress. She is breathing easier today as compared to yesterday. Still some loose nonproductive cough. She is maintaining good O2 saturations in the mid 90s on 2 L/m per nasal cannula. She' s been afebrile. No tachycardia. No tachypnea. Hemodynamically stable. Blood culture reveals no growth to date. The plan is for bronchoscopy today. The patient is seen again today 09/12/2017 in follow-up on the regular medical floor. She is resting quite comfortably in bed. She states she is breathing quite a bit easier today as compared to yesterday. She did undergo bronchoscopy with BAL yesterday and significant amount of secretions were removed more so on the left lower lobe. Cultures are pending. Blood culture reveals no growth to date. She is maintaining good O2 saturations in the 90s on 3 L/m per nasal cannula. She's been afebrile. No tachycardia, no tachypnea. The patient is seen again today 09/13/2017 in follow-up on the regular medical floor. She is currently resting quite comfortably in bed. She is awake and alert in no acute distress. She is breathing easier today as compared to yesterday. She did get quite short of breath while up to the bathroom and back however. Her chest x-ray does show improved aeration of the left lung base. She is maintaining good O2 saturations in the 90s on 2 L/m per nasal cannula. Bronchial wash are pending. Cytology is negative for malignancy. Blood culture reveals no growth. Objective - Vital Signs Vital signs: Vital Signs Temp 96.3 F L 09/13/17 07:00 Pulse 72 09/13/17 11:22 Resp 16 09/13/17 07:00 BP 130/70 09/13/17 07:00 Pulse Ox 92 L 09/13/17 07:00 Intake & Output 09/12/17 09/13/17 09/13/17 18:59 06:59 18:59 Intake Total 720 Balance 720 Intake: Oral 720 Other: # Voids 2 1 - Exam GENERAL EXAM: Alert, active, comfortable in no apparent distress. HEAD: Normocephalic. EYES: Normal reaction of pupils, equal size. NOSE: Clear with pink turbinates. THROAT: No erythema or exudates. NECK: No masses, no JVD. CHEST: No chest wall deformity. LUNGS: Equal air entry with scattered rhonchi crackles in the bases, left lower lobe. CVS: S1 and S2 normal with no audible murmur, regular rhythm. ABDOMEN: No hepatosplenomegaly, normal bowel sounds, no guarding or rigidity. SPINE: No scoliosis or deformity SKIN: No rashes CENTRAL NERVOUS SYSTEM: No focal deficits, tone is normal in all 4 extremities. EXTREMITIES: There is no peripheral edema. No clubbing, no cyanosis. Peripheral pulses are intact. - Labs CBC & Chem 7: 09/13/17 07:27 09/13/17 07:27 Labs: Abnormal Lab Results - Last 24 Hours (Table) 09/12/17 09/12/17 09/12/17 Range/Units 12:27 17:31 20:41 WBC (3.8-10.6) k/uL Glucose (74-99) mg/dL POC Glucose (mg/dL) 221 H 188 H 178 H (75-99) mg/dL Calcium (8.4-10.2) mg/dL 09/13/17 09/13/17 09/13/17 Range/Units 07:27 07:27 07:42 WBC 16.3 H (3.8-10.6) k/uL Glucose 175 H (74-99) mg/dL POC Glucose (mg/dL) 173 H (75-99) mg/dL Calcium 10.3 H (8.4-10.2) mg/dL Microbiology - Last 24 Hours (Table) 09/11/17 12:00 Acid Fast Bacilli Smear - Final Bronchial Washings - Left Acid Fast Bacilli Culture - Preliminary 09/09/17 15:00 Blood Culture - Preliminary Blood No Growth after 72 hours 09/11/17 12:00 Gram Stain - Preliminary Bronchial Washings - Left Bronchial Washings Culture - Preliminary Assessment and Plan Assessment: Impression: #1 Acute community-acquired left lower lobe pneumonia with suspected postobstructive collapse. Bronchoscopy with BAL performed to 2017. No evidence of endobronchial tumor. Cultures are pending. Cytology is negative for malignancy. #2 Acute hypoxic respiratory failure secondary to above. #3 Chronic tobacco use. #4 Hypertension. #5 History of mild intermittent asthma maintained on Symbicort and Ventolin in the outpatient setting. #6 History of GI bleed status post EGD with perforation requiring clipping. Plan: The patient was seen and evaluated by Dr. Jain. Her chest x-ray shows improvement in aeration of the left lung base. We will continue with her current medications. We'll continue to titrate down her FiO2 as tolerated. We will increase her activity as tolerated. We will continue to follow and make further recommendations based on her clinical status. Probable discharge in the next 24-48 hours. I, the cosigning physician, performed a history & physical examination of the patient. Lungs sounds have scattered rhonchi in the left lung. Diminished.. Maintaining good O2 saturations in the 90s on 2 L/m per nasal cannula. I discussed the assessment and plan of care with my nurse practitioner, Philomena Cooley. I attest to the above note as dictated by her.
[2017-09-13 11:43] LABS: Glucose,Whole Blood 274 mg/dL (75-99)
[2017-09-13 17:01] LABS: Glucose,Whole Blood 133 mg/dL (75-99)
[2017-09-13] MEDS: LEVOFLOXACIN 750 MG TAB PO SCH (18:10)
[2017-09-13] MEDS: SODIUM CHLORIDE 0.9% 1,000 ML IV SCH (19:07)
[2017-09-13 20:56] LABS: Glucose,Whole Blood 310 mg/dL (75-99)
--- NOTE | 2017-09-13 21:20 | PN ---
PROGRESS NOTE DATE OF SERVICE: 09/13/2017 PRESENTING COMPLAINT: Short of breath. INTERVAL HISTORY: Patient admitted with severe pneumonia, status post bronchoscopy. The patient is feeling better. Did walk in the hallway, still a bit short of breath short of breath. A little bit of sputum production. Eating better. REVIEW OF SYSTEMS: Done for constitutional, cardiovascular, GI, pulmonary; relevant findings as above. CURRENT MEDICATIONS: Reviewed that include: 1. DuoNeb. 2. Nebulized Pulmicort. 3. P.o. Levaquin. 4. Oral prednisone. EXAMINATION: Afebrile, pulse 90, respirations 20, blood pressure 138/83, pulse ox 91% on 2L. GENERAL APPEARANCE: Sitting up, less tired-appearing. HEENT: External appearance of nose, ears normal. Oral cavity normal. NECK: JVD not raised. Mass not palpable. RESPIRATORY: Effort increased. LUNGS: Left side posterior decreased breath sounds. Mild wheezing. CARDIOVASCULAR: First and second sounds normal. No edema. ABDOMEN: Soft, nontender. Liver and spleen not palpable. PSYCHIATRY: Alert and oriented x3. Mood and affect were normal. INVESTIGATION: Chest x-ray review shows improved aeration. White count 16.3. Potassium 4.6. The patient's bronch cultures are negative until now. Blood cultures growing gram-positive bacilli. ASSESSMENT: 1. Acute severe community-acquired left lower lobe pneumonia, status post bronchoscopy, slowly improving. 2. Acute hypoxic respiratory failure from above. Patient currently 91% on 2L. 3. Moderate persistent asthma with acute exacerbation. 4. Essential hypertension. 5. Peptic ulcer disease. Prior history of perforation. 6. Colonic diverticulosis, asymptomatic. 7. Obesity; BMI 34.0. 8. Hyperglycemia secondary to steroids. PLAN: At this point, continue current treatment plan. Patient encouraged to ambulate more. Keep using her high IS. I will add some Mucinex and also humidify the oxygen. The patient is slowly improving. MMODL / IJN: [id number] /
[2017-09-13] MEDS: guaiFENesin 600 MG TABLET.ER PO SCH (22:23)
[2017-09-13 23:07] LABS: Glucose,Whole Blood 221 mg/dL (75-99)
--- NOTE | 2017-09-14 06:58 | XR ---
EXAMINATION TYPE: XR chest 2V DATE OF EXAM: 09/14/2017 HISTORY: LLL collapse/pneumonia. REFERENCE: Previous study dated 09/13/2017. FINDINGS: There continues to be some left basilar atelectasis. I suspect a small left effusion. Heart size is upper limits of normal. IMPRESSION: NO SIGNIFICANT CHANGE IN THE APPEARANCE OF THE CHEST.
[2017-09-14 07:41] LABS: Glucose,Whole Blood 102 mg/dL (75-99)
[2017-09-14] MEDS: BUDESONIDE 1 MG/2 ML NEBU INHALATION SCH ×2 (07:52→20:31)
[2017-09-14] MEDS: IPRATROPIUM-ALBUTEROL 3 ML NEB INHALATION SCH ×4 (07:52→20:31)
[2017-09-14] MEDS: predniSONE 10 MG TAB PO SCH (08:03)
[2017-09-14] MEDS: ENOXAPARIN 40 MG/0.4 ML SYRINGE SQ SCH (08:03)
[2017-09-14] MEDS: CHOLECALCIFEROL 1,000 UNIT TAB PO SCH (08:04)
[2017-09-14] MEDS: FERROUS SULFATE 325 MG TAB PO SCH (08:04)
[2017-09-14] MEDS: LISINOPRIL-HCTZ 10-12.5 MG 1 EACH TAB PO SCH (08:04)
[2017-09-14] MEDS: guaiFENesin 600 MG TABLET.ER PO SCH ×2 (08:04→21:26)
[2017-09-14] MEDS: PANTOPRAZOLE 40 MG TABLET PO SCH ×2 (08:04→17:10)
[2017-09-14] MEDS: INSULIN ASPART 100 UNIT/ML 1 ML 10 ML VIAL SQ SCH ×4 (08:04→21:26)
[2017-09-14 11:31] LABS: Glucose,Whole Blood 218 mg/dL (75-99)
--- NOTE | 2017-09-14 14:14 | P.PN ---
Subjective Progress Note Date: 09/14/17 Principal diagnosis: acute community-acquired left lower lobe pneumonia This is a very pleasant 46-year-old female patient who follows with Dr. Mccabe as her primary care physician. She has a previous history of hypertension, gastroesophageal reflux disease, chronic bronchial asthma, gastrointestinal bleeding status post endoscopy with subsequent perforation in August 2016. She is treated with Symbicort and Ventolin in the outpatient setting for her asthma. She states she rarely has exacerbations. She is an occasional smoker once or twice a month if out with friends. She presented here yesterday with complaints of increasing shortness of breath left-sided chest discomfort cough and congestion. She was seen in the urgent care facility who performed chest x- ray EKG and transferred the patient here by ambulance. Her influenza screen has been negative 2. Her chest x-ray revealed evidence of lingular infiltrate with left lower lobe volume loss. Right lung is clear. A CT angiogram ruled out pulmonary embolism. There is a left lower lobe complete atelectasis and some partial atelectasis of the left upper lobe. There is left lower lobe bronchial obstruction, the nature of which is unclear possible mucous plug versus endobronchial tumor. White count 13.1. Neutrophils 11.3. Initial lactic acid 4.8 currently down to 1.3. Troponins are negative 2. ProBNP 87. Influenza screen is negative. She has been initiated on DuoNeb inhalations, Levaquin, prednisone 40 mg. She is seen today in consultation on the regular medical floor. She is awake and alert in no acute distress. She is having a productive cough. She is breathing slightly easier today as compared to yesterday. She is maintaining O2 saturations in the mid 90s on 4 L/m per nasal cannula. No tachycardia cardia. No tachypnea. Currently afebrile. Hemodynamically stable. The patient is seen again today 09/11/2017 in follow-up on the regular medical floor. She is awake and alert in no acute distress. She is breathing easier today as compared to yesterday. Still some loose nonproductive cough. She is maintaining good O2 saturations in the mid 90s on 2 L/m per nasal cannula. She' s been afebrile. No tachycardia. No tachypnea. Hemodynamically stable. Blood culture reveals no growth to date. The plan is for bronchoscopy today. The patient is seen again today 09/12/2017 in follow-up on the regular medical floor. She is resting quite comfortably in bed. She states she is breathing quite a bit easier today as compared to yesterday. She did undergo bronchoscopy with BAL yesterday and significant amount of secretions were removed more so on the left lower lobe. Cultures are pending. Blood culture reveals no growth to date. She is maintaining good O2 saturations in the 90s on 3 L/m per nasal cannula. She's been afebrile. No tachycardia, no tachypnea. The patient is seen again today 09/13/2017 in follow-up on the regular medical floor. She is currently resting quite comfortably in bed. She is awake and alert in no acute distress. She is breathing easier today as compared to yesterday. She did get quite short of breath while up to the bathroom and back however. Her chest x-ray does show improved aeration of the left lung base. She is maintaining good O2 saturations in the 90s on 2 L/m per nasal cannula. Bronchial wash are pending. Cytology is negative for malignancy. Blood culture reveals no growth. Patient was reevaluated today on 09/2017, doing quite well, relatively asymptomatic, minimal shortness of breath no cough no wheezing no fever no chills no hemoptysis no chest pain. Cytology from the lavage of the left lower lobe came back negative. Chest x-ray is showing significant improvement with minimal atelectasis at the left lung base, clinically the patient is improving. I explained again to the patient the findings of the bronchoscopy, again it was not the most ideal bronchoscopy because the patient desaturated significantly during the procedure, but no clear-cut evidence of endobronchial tumor in the left lower lobe, there was significant purulent secretions, at this point I strongly doubt malignancy, but it is not entirely ruled out. Hence I plan to have a repeat CT of the chest on this patient in the next month or so on outpatient basis. In the meantime we'll continue treatment for pneumonia and COPD exacerbation. Plan to discharge the patient home tomorrow. Objective - Vital Signs Vital signs: Vital Signs Temp 97.8 F 09/14/17 07:00 Pulse 82 09/14/17 11:46 Resp 16 09/14/17 07:00 BP 123/73 09/14/17 07:00 Pulse Ox 95 09/14/17 07:00 Intake & Output 09/13/17 09/14/17 09/14/17 18:59 06:59 18:59 Other: # Voids 3 2 - Exam GENERAL EXAM: Alert, active, comfortable in no apparent distress. HEAD: Normocephalic. EYES: Normal reaction of pupils, equal size. NOSE: Clear with pink turbinates. THROAT: No erythema or exudates. NECK: No masses, no JVD. CHEST: No chest wall deformity. LUNGS: Equal air entry , no crackles or rhonchi or wheezes noted today on physical examination. CVS: S1 and S2 normal with no audible murmur, regular rhythm. ABDOMEN: No hepatosplenomegaly, normal bowel sounds, no guarding or rigidity. SPINE: No scoliosis or deformity SKIN: No rashes CENTRAL NERVOUS SYSTEM: No focal deficits, tone is normal in all 4 extremities. EXTREMITIES: There is no peripheral edema. No clubbing, no cyanosis. Peripheral pulses are intact. - Labs CBC & Chem 7: 09/13/17 07:27 09/13/17 07:27 Labs: Abnormal Lab Results - Last 24 Hours (Table) 09/13/17 09/13/17 09/13/17 Range/Units 16:53 20:55 22:53 POC Glucose (mg/dL) 133 H 310 H 221 H (75-99) mg/dL 09/14/17 09/14/17 Range/Units 07:38 11:30 POC Glucose (mg/dL) 102 H 218 H (75-99) mg/dL Microbiology - Last 24 Hours (Table) 09/11/17 12:00 Gram Stain - Final Bronchial Washings - Left Bronchial Washings Culture - Final 09/09/17 15:10 Blood Culture Gram Stain - Preliminary Blood 09/09/17 15:00 Blood Culture - Final Blood Assessment and Plan Assessment: #1 Acute community-acquired left lower lobe pneumonia with suspected postobstructive collapse. Bronchoscopy with BAL performed to 2017. No evidence of endobronchial tumor. Cultures are pending. Cytology is negative for malignancy. #2 Acute hypoxic respiratory failure secondary to above. #3 Chronic tobacco use. #4 Hypertension. #5 History of mild intermittent asthma maintained on Symbicort and Ventolin in the outpatient setting. #6 History of GI bleed status post EGD with perforation requiring clipping. Recommendation: Continue present treatment plan, consider discharging the patient home tomorrow, must follow-up with me on outpatient basis, and must have a repeat CT of the chest in the next one month. If the patient is to be bronchoscoped again, this would have to be done while the patient is intubated and in the operating room. Time with Patient: Less than 30
[2017-09-14] MEDS: LEVOFLOXACIN 750 MG TAB PO SCH (17:09)
[2017-09-14 17:13] LABS: Glucose,Whole Blood 193 mg/dL (75-99)
--- NOTE | 2017-09-14 20:25 | PN ---
PROGRESS NOTE DATE OF SERVICE: 09/14/17. PRESENTING COMPLAINT: Short of breath. INTERVAL HISTORY: Patient presents with severe left-sided pneumonia status post bronchoscopy. All the cultures have been negative. Continues to feel better. Did actually walk to the hallway. Pulse ox now 91% on room air. Sputum production greatly gone down. Continues to improve to eat much better. REVIEW OF SYSTEMS: Done for constitutional, cardiovascular, GI, pulmonary, relevant findings as above. CURRENT MEDICATIONS: Reviewed that include DuoNeb, nebulized Pulmicort, Mucinex, Levaquin, Zestoretic, oral prednisone. PHYSICAL EXAMINATION: Temperature 97, pulse 79, respiratory rate 16, blood pressure 101/64, pulse ox 93% on room air. General appearance: Sitting up, looking much better. Eyes pupils equal. Conjunctivae normal. Neck JVD not raised. Mass not palpable. Respiratory effort normal. Lungs slightly decreased breath sounds. Minimal wheezing. Cardiovascular 1st and 2nd sounds normal. No edema. ABDOMEN: Soft, nontender. Liver and spleen not palpable. Psychiatry alert x3 mood affect with normal. Chest x-ray shows continued improve aeration. ASSESSMENT: 1. Acute severe community-acquired left lower lobe pneumonia status post bronchoscopy continues to improve. 2. Acute hypoxic respiratory failure from above, patient coming down to room air. 3. Moderate persistent asthma with acute exacerbation. 4. Essential hypertension. 5. Peptic ulcer disease with prior history of perforation. 6. Colonic diverticulosis asymptomatic. 7. Obesity; BMI 34. 8. Hyperglycemia secondary to steroids. PLAN: Patient continues to do better. Encouraged to move more so in the hallway. Hopefully patient can be discharged tomorrow. MMODL / IJN: [id number] /
[2017-09-14 20:58] LABS: Glucose,Whole Blood 154 mg/dL (75-99)
[2017-09-14] MEDS: MELATONIN 3 MG TABLET PO SCH (22:19)
[2017-09-15 07:34] LABS: Glucose,Whole Blood 102 mg/dL (75-99)
[2017-09-15 07:52] VITALS: BP 116/66; RESP 16; TEMP 98.6
[2017-09-15] MEDS: BUDESONIDE 1 MG/2 ML NEBU INHALATION SCH (08:32)
[2017-09-15] MEDS: IPRATROPIUM-ALBUTEROL 3 ML NEB INHALATION SCH ×2 (08:32→11:55)
[2017-09-15] MEDS: INSULIN ASPART 100 UNIT/ML 1 ML 10 ML VIAL SQ SCH ×2 (08:46→13:03)
[2017-09-15] MEDS: CHOLECALCIFEROL 1,000 UNIT TAB PO SCH (08:49)
[2017-09-15] MEDS: PANTOPRAZOLE 40 MG TABLET PO SCH (08:49)
[2017-09-15] MEDS: predniSONE 10 MG TAB PO SCH (08:49)
[2017-09-15] MEDS: FERROUS SULFATE 325 MG TAB PO SCH (08:49)
[2017-09-15] MEDS: LISINOPRIL-HCTZ 10-12.5 MG 1 EACH TAB PO SCH (08:49)
[2017-09-15] MEDS: ENOXAPARIN 40 MG/0.4 ML SYRINGE SQ SCH (08:49)
[2017-09-15] MEDS: guaiFENesin 600 MG TABLET.ER PO SCH (08:49)
--- NOTE | 2017-09-15 09:10 | P.PN ---
Subjective Progress Note Date: 09/15/17 Principal diagnosis: Acute community acquired left lower lobe pneumonia This is a very pleasant 46-year-old female patient who follows with Dr. Mccabe as her primary care physician. She has a previous history of hypertension, gastroesophageal reflux disease, chronic bronchial asthma, gastrointestinal bleeding status post endoscopy with subsequent perforation in August 2016. She is treated with Symbicort and Ventolin in the outpatient setting for her asthma. She states she rarely has exacerbations. She is an occasional smoker once or twice a month if out with friends. She presented here yesterday with complaints of increasing shortness of breath left-sided chest discomfort cough and congestion. She was seen in the urgent care facility who performed chest x- ray EKG and transferred the patient here by ambulance. Her influenza screen has been negative 2. Her chest x-ray revealed evidence of lingular infiltrate with left lower lobe volume loss. Right lung is clear. A CT angiogram ruled out pulmonary embolism. There is a left lower lobe complete atelectasis and some partial atelectasis of the left upper lobe. There is left lower lobe bronchial obstruction, the nature of which is unclear possible mucous plug versus endobronchial tumor. White count 13.1. Neutrophils 11.3. Initial lactic acid 4.8 currently down to 1.3. Troponins are negative 2. ProBNP 87. Influenza screen is negative. She has been initiated on DuoNeb inhalations, Levaquin, prednisone 40 mg. She is seen today in consultation on the regular medical floor. She is awake and alert in no acute distress. She is having a productive cough. She is breathing slightly easier today as compared to yesterday. She is maintaining O2 saturations in the mid 90s on 4 L/m per nasal cannula. No tachycardia cardia. No tachypnea. Currently afebrile. Hemodynamically stable. The patient is seen again today 09/11/2017 in follow-up on the regular medical floor. She is awake and alert in no acute distress. She is breathing easier today as compared to yesterday. Still some loose nonproductive cough. She is maintaining good O2 saturations in the mid 90s on 2 L/m per nasal cannula. She' s been afebrile. No tachycardia. No tachypnea. Hemodynamically stable. Blood culture reveals no growth to date. The plan is for bronchoscopy today. The patient is seen again today 09/12/2017 in follow-up on the regular medical floor. She is resting quite comfortably in bed. She states she is breathing quite a bit easier today as compared to yesterday. She did undergo bronchoscopy with BAL yesterday and significant amount of secretions were removed more so on the left lower lobe. Cultures are pending. Blood culture reveals no growth to date. She is maintaining good O2 saturations in the 90s on 3 L/m per nasal cannula. She's been afebrile. No tachycardia, no tachypnea. The patient is seen again today 09/13/2017 in follow-up on the regular medical floor. She is currently resting quite comfortably in bed. She is awake and alert in no acute distress. She is breathing easier today as compared to yesterday. She did get quite short of breath while up to the bathroom and back however. Her chest x-ray does show improved aeration of the left lung base. She is maintaining good O2 saturations in the 90s on 2 L/m per nasal cannula. Bronchial wash are pending. Cytology is negative for malignancy. Blood culture reveals no growth. Patient was reevaluated today on 09/2017, doing quite well, relatively asymptomatic, minimal shortness of breath no cough no wheezing no fever no chills no hemoptysis no chest pain. Cytology from the lavage of the left lower lobe came back negative. Chest x-ray is showing significant improvement with minimal atelectasis at the left lung base, clinically the patient is improving. I explained again to the patient the findings of the bronchoscopy, again it was not the most ideal bronchoscopy because the patient desaturated significantly during the procedure, but no clear-cut evidence of endobronchial tumor in the left lower lobe, there was significant purulent secretions, at this point I strongly doubt malignancy, but it is not entirely ruled out. Hence I plan to have a repeat CT of the chest on this patient in the next month or so on outpatient basis. In the meantime we'll continue treatment for pneumonia and COPD exacerbation. Plan to discharge the patient home tomorrow. On 09/15/2017 patient is seen again in follow-up. Doing very well, denies any dyspnea, she is currently on room air, with O2 sat at 98%. Lung sounds are clear, no rhonchi, wheezes or rales noted. She is afebrile. Bronchial wash cultures remain negative thus far. Patient has been ambulating and tolerating activity well. No cough, no chest congestion or sputum production. Legionella PCR was negative. Vital signs are stable. Patient is stable for discharge home today from pulmonary standpoint. Objective - Vital Signs Vital signs: Vital Signs Temp 98.6 F 09/15/17 07:00 Pulse 82 09/15/17 08:49 Resp 16 09/15/17 07:00 BP 116/66 09/15/17 07:00 Pulse Ox 92 L 09/15/17 08:34 Intake & Output 09/14/17 09/15/17 09/15/17 18:59 06:59 18:59 Intake Total 880 Balance 880 Intake: Oral 880 Other: # Voids 3 2 - Exam GENERAL EXAM: Alert, active, comfortable in no apparent distress. HEAD: Normocephalic/atraumatic. EYES: Normal reaction of pupils, equal size. Conjunctiva pink, sclera white. NOSE: Clear with pink turbinates. THROAT: No erythema or exudates. NECK: No masses, no JVD, no thyroid enlargement, no adenopathy. CHEST: No chest wall deformity. Symmetrical expansion. LUNGS: Equal air entry with no crackles, wheeze, rhonchi or dullness. CVS: Regular rate and rhythm, normal S1 and S2, no gallops, no murmurs, no rubs ABDOMEN: Soft, nontender. No hepatosplenomegaly, normal bowel sounds, no guarding or rigidity. EXTREMITIES: No clubbing, no edema, no cyanosis, 2+ pulses and upper and lower extremities. MUSCULOSKELETAL: Muscle strength and tone normal. SPINE: No scoliosis or deformity SKIN: No rashes CENTRAL NERVOUS SYSTEM: Alert and oriented -3. No focal deficits, tone is normal in all 4 extremities. PSYCHIATRIC: Alert and oriented -3. Appropriate affect. Intact judgment and insight. - Labs CBC & Chem 7: 09/13/17 07:27 09/13/17 07:27 Labs: Abnormal Lab Results - Last 24 Hours (Table) 09/14/17 09/14/17 09/14/17 Range/Units 11:30 17:09 20:45 POC Glucose (mg/dL) 218 H 193 H 154 H (75-99) mg/dL 09/15/17 Range/Units 07:05 POC Glucose (mg/dL) 102 H (75-99) mg/dL Microbiology - Last 24 Hours (Table) 09/11/17 12:00 Gram Stain - Final Bronchial Washings - Left Bronchial Washings Culture - Final Assessment and Plan Plan: Assessment: #1 Acute community-acquired left lower lobe pneumonia with suspected postobstructive collapse. Bronchoscopy with BAL performed to 2017. No evidence of endobronchial tumor. Cultures are pending. Cytology is negative for malignancy. #2 Acute hypoxic respiratory failure secondary to above. #3 Chronic tobacco use. #4 Hypertension. #5 History of mild intermittent asthma maintained on Symbicort and Ventolin in the outpatient setting. #6 History of GI bleed status post EGD with perforation requiring clipping. Recommendation: Patient continues to clinically improve. On room air, denies any dyspnea. Increasing activity and tolerating it well. No acute events overnight, denies any distress. From pulmonary standpoint she stable for discharge home today. Finish outpatient course of Levaquin and prednisone taper. Continue with her home dose Symbicort and albuterol HFA on as-needed basis. Follow-up with Dr. Jain in the office in 7 days. I performed a history & physical examination of the patient and discussed their management with my nurse practitioner, eL Stephens. I reviewed the nurse practitioner's note and agree with the documented findings and plan of care. Lung sounds are clear. The findings and the impression was discussed with the patient. I attest to the documentation by the nurse practitioner. Time with Patient: Less than 30
[2017-09-15 11:58] VITALS: PULSE 84
[2017-09-15 12:46] LABS: Glucose,Whole Blood 185 mg/dL (75-99)
== END 2017-09-15 13:05 | disposition home or self-care (01) | DRG 166 ==
LOC: EC 14:46 → 4MS4W 16:43
PROVIDERS: ADMIT Hospitalist; ATTEND Hospitalist
PROC: 0B9B8ZZ Drainage of Left Lower Lobe Bronchus, Via Natural or Artificial Opening Endoscopic (ICD-10-PCS; 2017-09-11)
PROC: 0B9J8ZX Drainage of Left Lower Lung Lobe, Via Natural or Artificial Opening Endoscopic, Diagnostic (ICD-10-PCS; principal; 2017-09-11 12:35)
DX: J18.9 Pneumonia, unspecified organism (principal); J96.01 Acute respiratory failure with hypoxia; J44.0 Chronic obstructive pulmonary disease with (acute) lower respiratory infection; J44.1 Chronic obstructive pulmonary disease with (acute) exacerbation; J45.41 Moderate persistent asthma with (acute) exacerbation; J98.11 Atelectasis; K21.9 Gastro-esophageal reflux disease without esophagitis; K57.30 Diverticulosis of large intestine without perforation or abscess without bleeding; I10 Essential (primary) hypertension; F17.200 Nicotine dependence, unspecified, uncomplicated; I34.0 Nonrheumatic mitral (valve) insufficiency; E66.9 Obesity, unspecified; Z68.34 Body mass index [BMI] 34.0-34.9, adult; G43.909 Migraine, unspecified, not intractable, without status migrainosus; Z87.11 Personal history of peptic ulcer disease; Z79.51 Long term (current) use of inhaled steroids; Z79.899 Other long term (current) drug therapy; Z88.1 Allergy status to other antibiotic agents; Z88.0 Allergy status to penicillin; Z88.2 Allergy status to sulfonamides; R73.9 Hyperglycemia, unspecified; T38.0X5A Adverse effect of glucocorticoids and synthetic analogues, initial encounter
CPT/HCPCS: 31624; 36415; 71045; 71046; 71275; 80048; 80053; 81025; 82550; 82553; 83605; 83735; 83880; 84484; 85025; 85027; 85379; 85610; 85730; 87040; 87070; 87102; 87116; 87205; 87206; 87252; 87496; 87498; 87502; 87529; 87541; 87581; 87634; 87798; 88108; 88305; 93005; 94640; 94760; 96365; 96375; 99285

== ENCOUNTER → 2017-09-25 | Outpatient (CLI) | payer OTHER ==
--- NOTE | 2017-09-25 17:29 | CT ---
EXAMINATION TYPE: CT chest wo con DATE OF EXAM: 09/25/2017 COMPARISON: Prior CT chest 09/10/2017, chest x-ray 09/22/2017 HISTORY: Lower left lobe collapse. Pneumonia. CT DLP: 264 mGycm. Automated Exposure Control for Dose Reduction was Utilized. TECHNIQUE: CT scan of the thorax is performed without IV contrast, scanning was performed in a limit ed fashion in supine and prone positions. High-resolution algorithm utilized. FINDINGS: Lack of contrast could compromise sensitivity. LUNGS: The lungs are grossly clear, there is no concerning parenchymal mass or nodule identified. T here is no pleural effusion or pneumothorax seen. The tracheobronchial tree is patent. MEDIASTINUM: Lack of IV contrast is noted to limit evaluation for mediastinal and especially hilar ad enopathy. There are no definitive greater than 1 cm hilar or mediastinal lymph nodes. No cardiomega ly or pericardial effusion is seen. OTHER: There is a small hiatal hernia. IMPRESSION: There is been interval resolution of patient's left lower lobe atelectasis.
== END | disposition home or self-care (01) ==
LOC: RADCTMAIN 15:42
PROVIDERS: ATTEND Internal Medicine
DX: J98.19 Other pulmonary collapse (principal)
CPT/HCPCS: 71250

== ENCOUNTER → 2018-01-15 | Outpatient (CLI) | payer OTHER ==
--- NOTE | 2018-01-15 15:09 | MM ---
Reason for exam: clinical finding. Last mammogram was performed 11 months ago. History: Patient is postmenopausal. Took hormonal contraceptives for 10 years. Physical Findings: Nurse did not find any significant physical abnormalities on exam. MG 3D Diag Mammo W/Cad INNA Bilateral CC and MLO view(s) were taken. Prior study comparison: January 30, 2017, bilateral MG 3d screening mammo w/cad. January 26, 2016, bilateral MG 3d screening mammo w/cad. There are scattered fibroglandular densities. No significant new findings when compared with previous films. These results were verbally communicated with the patient and result sheet given to the patient on 01/15/18. ASSESSMENT: Benign, BI-RAD 2 RECOMMENDATION: Routine screening mammogram of both breasts in 1 year. Manage on a clinical basis with regard to nipple discharge.
== END | disposition home or self-care (01) ==
LOC: RADMAMWWP 14:14
PROVIDERS: ATTEND Family Medicine
DX: N64.52 Nipple discharge (principal)
CPT/HCPCS: 77066; G0279; 77062

== ENCOUNTER → 2018-03-26 | Outpatient (CLI) | payer OTHER ==
[2018-03-26 09:53] VITALS: BP 104/69; PULSE 69; RESP 14; TEMP 98; BMI 35.2
--- NOTE | 2018-03-26 10:43 | P.GSHP ---
History of Present Illness H&P Date: 03/26/18 The paient is a 47 year old white female status post bilateral mammogram on . This was a BI-RADS 2 and bilateral mammogram in 1 year recommended. The patient states she noted about one month ago some discharge from her left nipple. For about 7 years she notes intermittent squeezing feeling in her breast and will have discharge from the left nipple area. She has no discharge from the right nipple area. The past month she noted that the discharge was bloody on several occasions. At this time she does not have any bloody nipple discharge. She has no history of any trauma to her breast. She has no history of any infection in her breast. She did have 3 children and breast-fed all of her children however her youngest is now 14. Hormonal History: Menarche: 11 Menopause: 43 : 3, 3 children breast fed all, age at first : 30 Hormones: few months, caused headaches BCP: 10 years Family History: father: lung cancer mother: brain tumor Past Surgical History: 1. GI unknown bleeding at 6 months 2. 2017 scope and perforated esophagus, treated conservatively 3. collapsed lung no chest tube, bronchoscopy musus plug 4. Tubal ligation Medical History: 1. asthma 2. HTN 3. overweight Social History: smoke: one time a month alcohol: one time month drugs: one time a month - Constitutional Constitutional: Reports sweats - EENT Comment: migrain Eyes: denies blurred vision, denies pain Ears: deny: decreased hearing, tinnitus Ears, nose, mouth and throat: Reports headache, Denies sore throat - Breasts Breasts: bilateral: as per HPI - Cardiovascular Comment: mitral valve regurgitation Cardiovascular: Reports high blood pressure - Respiratory Comment: asthma - Gastrointestinal Comment: peptic ulcer disease, from Excedrin Gastrointestinal: Denies abdominal pain, Denies diarrhea, Denies nausea, Denies vomiting - Genitourinary (Female) Comment: UTI Genitourinary: Denies dysuria, Denies hematuria - Menstruation Menstruation: Reports postmenopausal - Musculoskeletal Comment: heel spur - Integumentary Integumentary: Denies pruritus, Denies rash - Neurological Neurological: Denies numbness, Denies weakness - Psychiatric Psychiatric: Denies anxiety, Denies depression - Endocrine Endocrine: Denies fatigue, Denies weight change - Hematologic/Lymphatic Comment: none - Allergic/Immunologic Allergic/Immunologic: Reports seasonal allergies Past Medical History Past Medical History: Asthma, GERD/Reflux, GI Bleed, Hypertension Additional Past Medical History / Comment(s): diverticulitis, ulcers, "mitral valve regurgitaion", migarines. ANEMIA. GI BLEED 08/2016. phenomena and collapsed lung 08/2017 History of Any Multi-Drug Resistant Organisms: None Reported Past Surgical History: Tubal Ligation Additional Past Surgical History / Comment(s): exploratory GI surgery at age 6 months. EGD 08/17/16 WITH PERFORATION-SPENT 5 DAYS AT [facility] IN ICU Past Anesthesia/Blood Transfusion Reactions: Motion Sickness, Postoperative Nausea & Vomiting (PONV) Additional Past Anesthesia/Blood Transfusion Reaction / Comment(s): blood transfusion-no reaction Smoking Status: Current some day smoker - Past Family History Father Family Medical History: Cancer Additional Family Medical History / Comment(s): lung Mother Family Medical History: Cancer Additional Family Medical History / Comment(s): brain Medications and Allergies Home Medications Medication Instructions Recorded Confirmed Type Albuterol Inhaler [Ventolin Hfa 1 puff INHALATION RT-Q6H PRN 08/10/16 03/26/18 History Inhaler] Budesonide/Formoterol Fumarate 2 puff INHALATION RT-BID 08/10/16 03/26/18 History [Symbicort 160-4.5 Mcg Inhaler] Lisinopril-Hctz 10-12.5 mg 1 tab PO QAM 08/10/16 03/26/18 History [Zestoretic 10-12.5] Pantoprazole [Protonix] 40 mg PO BID 08/16/16 03/26/18 History Cholecalciferol [Vitamin D3] 1,000 unit PO DAILY 09/09/17 03/26/18 History Ipratropium-Albuterol Nebulize 3 ml INHALATION DAILY PRN 03/26/18 03/26/18 History [Duoneb 0.5 mg-3 mg/3 ml Soln] Montelukast [Singulair] 10 mg PO DAILY 03/26/18 03/26/18 History Topiramate [Topamax] 25 mg PO BID 03/26/18 03/26/18 History Allergies Allergy/AdvReac Type Severity Reaction Status Date / Time Penicillins Allergy SEIZURE Verified 08/16/18 09:36 amoxicillin AdvReac Nausea & Verified 03/26/18 09:36 Vomiting & Diarrhea doxycycline AdvReac Swelling Verified 03/26/18 09:36 Sulfa (Sulfonamide AdvReac Itching Verified 03/26/18 09:36 Antibiotics) Surgical - Exam Vital Signs Temp Pulse Resp BP Pulse Ox 98.0 F 69 14 104/69 98 03/26/18 09:48 03/26/18 09:48 03/26/18 09:48 03/26/18 09:48 03/26/18 09:48 - General obese - Eyes normal ocular movement, no icteric - ENT no hearing loss, no congestion - Neck no masses, trachea midline - Respiratory normal respiratory effort, clear to auscultation - Cardiovascular Rhythm: regular Heart Sounds: normal: S1, S2 - Abdomen Abdomen: soft, non tender, no guarding, no rigid, no rebound - Neurologic no disoriented, no combative - Musculoskeletal normal gait, normal posture - Psychiatric oriented to time, oriented to person, oriented to place, speech is normal, memory intact Breast examination: Right breast: Multi-positional exam no dominant masses or nodules of concern Right axilla: No adenopathy of concern Left breast: Multiple positional exam no dominant masses or nodules of concern, examination does not reveal any nipple discharge at this time. The patient is able to elicit some discharge from the 7 o'clock position of the nipple but this is fibrocystic in nature and no evidence of any blood on the discharge. Upon repeat examination and could not be really elicited. Left axilla: No adenopathy of concern Results mammogram results reviewed Assessment and Plan Assessment: Impression/plan: 1. Left breast nipple discharge intermittent 2. Fibrocystic breast changes 3. Asthma 4. Hypertension 5. History of ulcer disease in the past related to Excedrin patient no longer takes Excedrin 6. History of migraine headaches Plan: 1. Close surveillance of left breast nipple discharge if this becomes bloody again patient will call 2. Ultrasound of the left breast to assure there are no dilated ducts 3. Medical management of medical problems 4. folow up in 6 months The patient has attempted to express more fluid from the left nipple area unsuccessfully therefore a guaiac was not performed. Cc: Dr. Mccabe
--- NOTE | 2018-03-26 11:42 | USB ---
Reason for exam: clinical finding. History: Patient is postmenopausal. Took hormonal contraceptives for 10 years. US Breast LT Technologist: Yumiko Cruz RT (R)(M) Left complete breast ultrasound includes all four quadrants, the retroareolar region and axilla. Finding demonstrates no suspicious sonographic abnormality. These results were verbally communicated with the patient and result sheet given to the patient on 03/26/18. ASSESSMENT: Negative, BI-RAD 1 RECOMMENDATION: Clinical management of the left breast. Routine screening mammogram of both breasts in 1 year.
== END | disposition home or self-care (01) ==
LOC: WWCWWP 09:09
PROVIDERS: ATTEND Surgery
DX: N64.52 Nipple discharge (principal)

== ENCOUNTER → 2018-05-19 | Outpatient (CLI) | payer OTHER ==
--- NOTE | 2018-05-19 23:08 | CT ---
EXAMINATION TYPE: CT abdomen pelvis wo/w con DATE OF EXAM: 05/19/2018 COMPARISON: Prior CT 08/10/2016 HISTORY: abdominal pain, nausea, hx of GI bleeds CT DLP: 1717.6 mGycm Automated exposure control for dose reduction was used. TECHNIQUE: Helical acquisition of images was performed from the lung bases through the pelvis. CONTRAST: Performed with Oral Contrast and without and with IV Contrast, patient injected with 125 mL of Isovue 300. FINDINGS: Small hiatal hernia suspected. LUNG BASES: No significant abnormality is appreciated. LIVER/GB: No significant abnormality is appreciated. PANCREAS: No significant abnormality is seen. SPLEEN: No significant abnormality is seen. ADRENALS: Stable. KIDNEYS: No significant abnormality is seen. FREE AIR: No free air is visualized. RETROPERITONEAL ADENOPATHY: None visualized REPRODUCTIVE ORGANS: No significant abnormality is seen URINARY BLADDER: No significant abnormality is seen. PELVIC ADENOPATHY: None visualized. OSSEOUS STRUCTURES: No significant abnormality is seen. BOWEL: Small bowel folds show some wall thickening.. OTHER: No ascites. IMPRESSION: NONSPECIFIC SMALL BOWEL WALL THICKENING. HIATAL HERNIA.
== END ==
LOC: RADCTMAIN 15:07
DX: K44.9 Diaphragmatic hernia without obstruction or gangrene (principal); K63.89 Other specified diseases of intestine
CPT/HCPCS: 74178; Q9967

== ENCOUNTER → 2018-09-16 | Outpatient (CLI) | payer OTHER ==
--- NOTE | 2018-09-16 19:26 | CONS ---
CONSULTATION DATE OF SERVICE: 09/16/2018 47-year-old lady has been evaluated in the sleep center for possible obstructive sleep apnea-hypopnea syndrome. HISTORY OF PRESENT ILLNESS/SLEEP WAKE EVALUATION: SLEEP SCHEDULE: Patient's usual sleep schedule on working days from around 11 p.m. to 7 a.m. On weekends from midnight until 9:30 am. FALLING ASLEEP: No problems with falling asleep, although she has TV set in bedroom. DURING SLEEP: She usually sleeps on the side position with loud snoring and witnessed episodes of stopped breathing during sleep by her family. She wakes up with a choking, dry mouth, heartburn and nocturia 2 times. DURING THE DAY/SLEEP WAKE EVALUATION: In the morning, she wakes up tired, has difficulties to pay attention, falling asleep during the day, has episodes of irritability. [place] Sleepiness Scale significantly increased to 11. PAST MEDICAL HISTORY: Positive for acid reflux, asthma, hypertension. Migraines. Hypertrophy of left ventricle of the heart. PAST SURGICAL HISTORY: Tubal ligation. MEDICATIONS: Lisinopril, albuterol, vitamin D supplement, Topamax, Protonix. FAMILY HISTORY: Lung problems, emphysema, headaches, cancer, acid reflux, ulcers, thyroid problems. SOCIAL HISTORY: Negative for smoking. Alcohol consumption occasional. REVIEW OF SYSTEMS: Awakenings from sleep, feeling tiredness and sleepiness during the day. PHYSICAL EXAM: lady without distress. BP 115/76, HR 72, RR 16, height 5 feet, weight 175 pounds. Body mass index 34.1, temperature 98.0, oxygen saturation at room air 96%. Oropharynx low position of soft palate. Mallampati 3-4. Neck 13-1/2 inches in circumference. Neck: Supple, no JVD. Thyroid is not palpable. LUNGS Clear to percussion and to auscultation. Good air exchange. No wheezing or rhonchi. HEART S1, S2 regular. No murmurs, gallops, or rubs. ABDOMEN Soft and nontender. Bowel sounds are present. No organomegaly appreciated. EXTREMITIES No clubbing or cyanosis. MANAGER FLIGHT Awake, alert, and oriented X3. Cranial nerves 2 to 7 intact. There is no fasciculation or atrophy. noted. No focal deficits observed. IMPRESSION: 1. Snoring, witnessed episodes of stopped breathing during sleep, low position of soft palate, sleepiness, awakenings from sleep, obstructive sleep apnea-hypopnea syndrome. 2. Migraine some episodes happened in the morning after awakenings, could be related to sleep apnea. 3. Acid reflux. 4. Asthma. 5. Hypertension. 6. Hypertrophy of left ventricular by results of echocardiogram. 7. Status post tubal ligation. PLAN: 1. Polysomnography for evaluation of patient's breathing during sleep. 2. CPAP/BiPAP titration if sleep study confirms obstructive sleep apnea-hypopnea syndrome. 3. Preferable position during sleep on the side. 4. No driving if patient feels any sleepiness. 5. I will see patient for follow up visit to explain results of testing and following plan. Thank you very much for referring this patient for consultation. Sincerely, Gregorio Larry MD, PhD, FAASM Diplomat of [place] [employer] [place] [employer] [facility] [place] MMODL / TETEN: [id number] /
== END ==
LOC: SLEEP 16:32
PROVIDERS: ATTEND Internal Medicine
DX: G47.33 Obstructive sleep apnea (adult) (pediatric) (principal); G43.909 Migraine, unspecified, not intractable, without status migrainosus; K21.9 Gastro-esophageal reflux disease without esophagitis; J45.909 Unspecified asthma, uncomplicated; I10 Essential (primary) hypertension; I51.7 Cardiomegaly; Z98.51 Tubal ligation status; Z79.899 Other long term (current) drug therapy
CPT/HCPCS: 99211

== ENCOUNTER 2018-09-22 16:24 | Emergency (ER) | payer OTHER ==
[2018-09-22 16:44] VITALS: RESP 18
--- NOTE | 2018-09-22 17:02 | ED ---
Chest Pain HPI - General Chief Complaint: Chest Pain Stated Complaint: chest pressure Time Seen by Provider: 09/22/18 16:47 Source: patient, RN notes reviewed Mode of arrival: ambulatory Limitations: no limitations - History of Present Illness Initial Comments: This a 47-year-old female history of a esophageal rupture 2 years ago who presents with complaints of the onset yesterday of chest pain. She states it's in the middle of her chest she relates that feeling is a suggestion like a dull achy in nature 5/10 severity doesn't seem to get any worse with movements or positional changes doesn't seem to get any better either. No fevers chills nausea vomiting sweats she states it does feel similar when she had essentially are. 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 She has no prior history of heart disease she is a former smoker. MD Complaint: chest pain - Related Data Home Medications Medication Instructions Recorded Confirmed Albuterol Inhaler [Ventolin Hfa 1 puff INHALATION RT-Q6H PRN 08/10/16 09/22/18 Inhaler] Budesonide/Formoterol Fumarate 2 puff INHALATION RT-BID 08/10/16 09/22/18 [Symbicort 160-4.5 Mcg Inhaler] Lisinopril-Hctz 10-12.5 mg 1 tab PO QAM 08/10/16 09/22/18 [Zestoretic 10-12.5] Pantoprazole [Protonix] 40 mg PO BID 08/16/16 09/22/18 Cholecalciferol [Vitamin D3] 1,000 unit PO DAILY 09/09/17 09/22/18 Topiramate [Topamax] 25 mg PO BID 03/26/18 09/22/18 Previous Rx's Medication Instructions Recorded Ibuprofen 800 mg PO Q6HR PRN #20 tablet 09/22/18 Allergies Allergy/AdvReac Type Severity Reaction Status Date / Time Penicillins Allergy SEIZURE Verified 09/22/18 17:36 amoxicillin AdvReac Nausea & Verified 09/22/18 17:36 Vomiting & Diarrhea doxycycline AdvReac Swelling Verified 09/22/18 17:36 Sulfa (Sulfonamide AdvReac Itching Verified 09/22/18 17:36 Antibiotics) Review of Systems ROS Statement: Those systems with pertinent positive or pertinent negative responses have been documented in the HPI. ROS Other: All systems not noted in ROS Statement are negative. EKG Findings - EKG Results: EKG: interpreted by VILLA VIGILL, sinus rhythm, normal axis, normal QRS, normal ST/ T, no acute changes (Normal sinus rhythm a 67 appear 150 QRS duration 100 QT since QTC 44/[address]-T wave changes) Past Medical History Past Medical History: Asthma, GERD/Reflux, GI Bleed, Hypertension, Pneumonia Additional Past Medical History / Comment(s): diverticulitis, ulcers, "mitral valve regurgitaion", migarines. ANEMIA. GI BLEED 08/2016. phenomena and collapsed lung 08/2017 History of Any Multi-Drug Resistant Organisms: None Reported Past Surgical History: Tubal Ligation Additional Past Surgical History / Comment(s): exploratory GI surgery at age 6 months. EGD 08/17/16 WITH PERFORATION-SPENT 5 DAYS AT [facility] IN ICU Past Anesthesia/Blood Transfusion Reactions: Motion Sickness, Postoperative Nausea & Vomiting (PONV) Additional Past Anesthesia/Blood Transfusion Reaction / Comment(s): blood transfusion-no reaction Past Psychological History: No Psychological Hx Reported Smoking Status: Current some day smoker - Past Family History Father Family Medical History: Cancer Additional Family Medical History / Comment(s): lung Mother Family Medical History: Cancer Additional Family Medical History / Comment(s): brain General Exam - General Exam Comments Initial Comments: This is a well little pulmonary awake alert oriented 3 female Limitations: no limitations General appearance: alert, in no apparent distress Head exam: Present: atraumatic, normocephalic, normal inspection Eye exam: Present: normal appearance, PERRL, EOMI. Absent: scleral icterus, conjunctival injection, periorbital swelling ENT exam: Present: normal exam, mucous membranes moist Neck exam: Present: normal inspection. Absent: tenderness, meningismus, lymphadenopathy Respiratory exam: Present: normal lung sounds bilaterally, chest wall tenderness (Some tenderness palpation of the left costal sternal costochondral margin no step-off or crepitation). Absent: respiratory distress, wheezes, rales, rhonchi, stridor Cardiovascular Exam: Present: regular rate, normal rhythm, normal heart sounds. Absent: systolic murmur, diastolic murmur, rubs, gallop, clicks GI/Abdominal exam: Present: soft, normal bowel sounds. Absent: distended, tenderness, guarding, rebound, rigid Extremities exam: Present: normal inspection, full ROM, normal capillary refill. Absent: tenderness, pedal edema, joint swelling, calf tenderness Back exam: Present: normal inspection Neurological exam: Present: alert, oriented X3, CN II-XII intact Psychiatric exam: Present: normal affect, normal mood Skin exam: Present: warm, dry, intact, normal color. Absent: rash Course Vital Signs 09/22/18 16:39 Temperature 98.5 F Pulse Rate 74 Respiratory 18 Rate Blood Pressure 147/88 O2 Sat by Pulse 99 Oximetry Chest Pain MDM - MDM X-rays are nonspecific no acute findings. Patient is feeling much improved the presentation is consistent with costochondritis. Disposition Clinical Impression: Costalchondritis, Chest wall syndrome Disposition: HOME SELF-CARE Condition: Good Instructions (If sedation given, give patient instructions): Costochondritis ( ED) Prescriptions: Ibuprofen 800 mg PO Q6HR PRN #20 tablet PRN Reason: Pain Is patient prescribed a controlled substance at d/c from ED?: No Referrals: Luis Mccabe DO [Primary Care Provider] - 1-2 days
[2018-09-22] MEDS ORDERED: KETOROLAC 30 MG/ML 1 ML VIAL IVP STA (17:03)
[2018-09-22 17:33] LABS: Basophils % (A) 1 %; Eosinophils # (A) 0.3 k/uL (0-0.7); Eosinophils % (A) 3 %; HCT 40.4 % (34.0-46.0); HGB 13.2 gm/dL (11.4-16.0); Lymphocytes # (A) 1.4 k/uL (1.0-4.8); Lymphocytes % (A) 17 %; MCH 29.3 pg (25.0-35.0); MCHC 32.7 g/dL (31.0-37.0); MCV 89.7 fL (80.0-100.0); Mean Platelet Volume 6.3; Monocytes # (A) 0.4 k/uL (0-1.0); Monocytes % (A) 5 %; Neutrophils # (A) 6.1 k/uL (1.3-7.7); Neutrophils % (A) 73 %; Platelet Count 241 k/uL (150-450); WBC 8.3 k/uL (3.8-10.6)
[2018-09-22 17:45] LABS: D-Dimer 0.23 mg/L FEU (<0.60); Partial Thromboplastin Time 24.4 sec (22.0-30.0); Prothrombin Time 10.4 sec (9.0-12.0)
[2018-09-22 17:49] LABS: ALT 40 U/L (9-52); AST 16 U/L (14-36); Albumin 4.1 g/dL (3.5-5.0); Alkaline Phosphatase 62 U/L (38-126); Amylase 48 U/L (30-110); Anion Gap 8 mmol/L; Blood Urea Nitrogen 14 mg/dL (7-17); Calcium 9.7 mg/dL (8.4-10.2); Carbon Dioxide 27 mmol/L (22-30); Chloride 105 mmol/L (98-107); Glucose 102 mg/dL (74-99); Lipase 123 U/L (23-300); Magnesium 2.1 mg/dL (1.6-2.3); Potassium 3.8 mmol/L (3.5-5.1); Sodium 140 mmol/L (137-145); Total Bilirubin 0.4 mg/dL (0.2-1.3); Total Protein 6.4 g/dL (6.3-8.2)
[2018-09-22 17:57] LABS: Creatine Kinase 70 U/L (30-135)
--- NOTE | 2018-09-22 18:00 | XR ---
EXAMINATION: XR chest 2V DATE AND TIME: 09/22/2018 5:48 PM CLINICAL INDICATION: PHH; Chest Pain TECHNIQUE: Departmental protocol COMPARISON: 06/25/2018 FINDINGS: The lungs are clear. The pleural spaces are negative. The cardiac silhouette is not enlarged. The remainder of the mediastinal silhouette is unremarkable. The skeletal structures and soft tissues are negative for acute findings. IMPRESSION: NO ACUTE PROCESS.
[2018-09-22 18:10] LABS: Creatine Kinase MB 0.7 ng/mL (0.0-2.4); Troponin I <0.012 ng/mL (0.000-0.034)
[2018-09-22 18:57] VITALS: BP 113/83; PULSE 64; TEMP 96.9
== END 2018-09-22 18:43 | disposition home or self-care (01) ==
LOC: EC 16:24
DX: M94.0 Chondrocostal junction syndrome [Tietze] (principal); J45.909 Unspecified asthma, uncomplicated; I10 Essential (primary) hypertension; D64.9 Anemia, unspecified; K21.9 Gastro-esophageal reflux disease without esophagitis; F17.200 Nicotine dependence, unspecified, uncomplicated; Z79.51 Long term (current) use of inhaled steroids; Z79.899 Other long term (current) drug therapy; Z88.0 Allergy status to penicillin; Z88.1 Allergy status to other antibiotic agents; Z88.2 Allergy status to sulfonamides; Z98.51 Tubal ligation status
CPT/HCPCS: 36415; 93005; 85379; 83880; 80053; 82150; 82550; 82553; 83690; 83735; 84484; 85025; 85610; 85730; 71046; 99285; 96374; J1885

== ENCOUNTER → 2018-11-06 | Outpatient (CLI) | payer OTHER ==
--- NOTE | 2018-11-06 10:26 | FL ---
EXAMINATION TYPE: FL UGI w small bowel DATE OF EXAM: 11/06/2018 COMPARISON: CT abdomen and pelvis May 19, 2018. CT chest September 25, 2017. HISTORY: Esophagitis per order. Discomfort and feeling full epigastric region. History of GI bleeds a nd ulcer. TECHNIQUE: A double contrast UGI study is performed with small bowel follow through. Total of 1 jeffrey te 26 seconds of fluoroscopic time was utilized during procedure. 56 spot images are saved. FINDINGS: [employer] Tender image of the abdomen shows overall nonobstructive bowel gas pattern. Scattered pelvi c phleboliths are seen bilaterally. The esophagus shows satisfactory motility and emptying into the stomach. Small sliding-type hiatal he rnia is seen. The stomach shows slightly suboptimal distention but satisfactory peristalsis. There is moderate violet jolly fold prominence towards the fundus. No rosemarie ulcer disease. Several episodes of gastroesophageal reflux seen during real-time performance of study extending to mid esophageal level. The duodenal bul b and sweep are unremarkable. The small bowel study shows normal transit to the colon in less than 30 minutes. There is normal muc osal fold pattern throughout the small bowel. There is no evidence of any stricture or filling defec t noted. The terminal ileum is spotted and appears unremarkable. IMPRESSION: Small sliding-type hiatal hernia with moderate fundal gastritis and moderate gastroesoph ageal reflux.
== END | disposition home or self-care (01) ==
LOC: RADFLMAIN 08:13
DX: K21.9 Gastro-esophageal reflux disease without esophagitis (principal); K44.9 Diaphragmatic hernia without obstruction or gangrene; K29.70 Gastritis, unspecified, without bleeding
CPT/HCPCS: 74245

== ENCOUNTER → 2019-03-29 | Outpatient (CLI) | payer OTHER ==
--- NOTE | 2019-03-29 08:29 | MM ---
Reason for exam: clinical finding. Last mammogram was performed 1 year and 2 months ago. History: Patient is postmenopausal. Took hormonal contraceptives for 10 years. Indicated problem(s): lump or thickening in the left breast. Physical Findings: Nurse Summary: 0.5cm nodule in the left breast at 11 o'clock (nurse TM). MG 3D Diag Mammo W/Cad INNA Bilateral CC and MLO view(s) were taken. Prior study comparison: January 15, 2018, bilateral MG 3d diag mammo w/cad INNA. January 30, 2017, bilateral MG 3d screening mammo w/cad. There are scattered fibroglandular densities. Medial left breast palpable marker. Stable nodularity upper outer quadrant left breast. These results were verbally communicated with the patient and result sheet given to the patient on 03/29/19. ASSESSMENT: Incomplete: need additional imaging evaluation, BI-RAD 0 RECOMMENDATION: Ultrasound of the left breast. (targeted to palpable)
--- NOTE | 2019-03-29 08:31 | USB ---
Reason for exam: additional evaluation requested from abnormal screening. History: Patient is postmenopausal. Took hormonal contraceptives for 10 years. US Breast Limited LT Left limited breast ultrasound including focal area of concern, retroareolar and axilla demonstrates no cystic or solid lesion seen. Scanned 9-12 o'clock. Patient reports green nipple discharge. These results were verbally communicated with the patient and result sheet given to the patient on 03/29/19. ASSESSMENT: Benign, BI-RAD 2 RECOMMENDATION: Routine screening mammogram of both breasts in 1 year. Manage on a clinical basis with regard to benign green nipple discharge. If there is recurrence of bloody discharge, patient can be referred to the breast surgeon.
== END | disposition home or self-care (01) ==
LOC: RADMAMWWP 06:58
PROVIDERS: ATTEND Family Medicine
DX: R92.8 Other abnormal and inconclusive findings on diagnostic imaging of breast (principal); N63.22 Unspecified lump in the left breast, upper inner quadrant
CPT/HCPCS: 77066; 76642; G0279; 77062

== ENCOUNTER → 2019-09-16 | Outpatient (CLI) | payer OTHER ==
--- NOTE | 2019-09-16 13:48 | XR ---
EXAMINATION TYPE: XR knee complete RT DATE OF EXAM: 09/16/2019 CLINICAL HISTORY: Suprapatellar right knee pain without known injury. TECHNIQUE: Three views of the right knee are obtained. COMPARISON: None. FINDINGS: There is no acute fracture/dislocation evident in right knee. The tri-compartment joint s paces appear within normal limits. The overlying soft tissue appears unremarkable. IMPRESSION: There is no acute fracture or dislocation in the right knee.
== END | disposition home or self-care (01) ==
LOC: RADXRMAIN 13:07
PROVIDERS: ATTEND Family Medicine
DX: M25.561 Pain in right knee (principal)

== ENCOUNTER → 2020-04-12 | Outpatient (CLI) | payer OTHER ==
--- NOTE | 2020-04-13 10:49 | MM ---
Reason for exam: screening (asymptomatic). Last mammogram was performed 1 year ago. History: Patient is postmenopausal. Took hormonal contraceptives for 10 years. Physical Findings: A clinical breast exam by your physician is recommended on an annual basis and results should be correlated with mammographic findings. MG 3D Screening Mammo W/Cad Bilateral CC and MLO view(s) were taken. Prior study comparison: March 29, 2019, bilateral MG 3d diag mammo w/cad INNA. January 15, 2018, bilateral MG 3d diag mammo w/cad [facility]. There are scattered fibroglandular densities. There is no discrete abnormality. No significant changes when compared with prior studies. ASSESSMENT: Negative, BI-RAD 1 RECOMMENDATION: Routine screening mammogram of both breasts in 1 year.
== END | disposition home or self-care (01) ==
LOC: RADMAMWWP 16:19
PROVIDERS: ATTEND Family Medicine
DX: Z12.31 Encounter for screening mammogram for malignant neoplasm of breast (principal)
CPT/HCPCS: 77063; 77067

== ENCOUNTER → 2020-08-17 | Outpatient (CLI) | payer OTHER ==
--- NOTE | 2020-08-17 12:45 | XR ---
EXAMINATION TYPE: XR chest 2V DATE OF EXAM: 08/17/2020 COMPARISON: 09/22/2018 INDICATION: Hemoptysis, history of asthma TECHNIQUE: Single frontal view of the chest is obtained. FINDINGS: The heart size is normal. The pulmonary vasculature is normal. The lungs are clear. IMPRESSION: 1. No acute pulmonary process.
== END | disposition home or self-care (01) ==
LOC: RADXRMAIN 11:59
PROVIDERS: ATTEND Family Medicine
DX: R04.2 Hemoptysis (principal)
CPT/HCPCS: 71046

== ENCOUNTER 2021-03-11 03:12 | Emergency (ER) | payer OTHER ==
[2021-03-11 03:23] VITALS: RESP 18; TEMP 97.9
[2021-03-11] MEDS ORDERED: predniSONE 20 MG TAB PO STA (04:17)
[2021-03-11] MEDS ORDERED: FAMOTIDINE 20 MG TAB PO STA (04:17)
--- NOTE | 2021-03-11 05:04 | ED ---
ENT HPI - General Chief complaint: ENT Stated complaint: Sore Throat Time Seen by Provider: 03/11/21 03:32 Source: patient, EMS Mode of arrival: EMS Limitations: no limitations - History of Present Illness Initial comments: This patient is a 50-year-old woman who presents with the complaint that she feels like her uvula is swollen. The patient states that she felt normal when she went to sleep tonight. She awakened less than hour ago with feeling there was swelling in her throat. She did note that she had had a few alcoholic beverages prior to going to sleep. She also had one episode of vomiting prior to going to bed. Of note the patient states that she did have extraction of a left maxillary tooth approximately 2 weeks ago. She denies fever or chills. She is not having congestion. MD complaint: sore throat -: minutes(s) Location: throat Severity: mild Quality: dull Consistency: constant Improves with: none Worsens with: none - Related Data Home Medications Medication Instructions Recorded Confirmed Albuterol Inhaler (Mhu) [Ventolin 1 puff INHALATION RT-Q6H PRN 08/10/16 09/22/18 Hfa Inhaler (Mhu)] Budesonide/Formoterol Fumarate 2 puff INHALATION RT-BID 08/10/16 09/22/18 [Symbicort 160-4.5 Mcg Inhaler] Lisinopril-Hctz 10-12.5 mg 1 tab PO QAM 08/10/16 09/22/18 [Zestoretic 10-12.5] Pantoprazole [Protonix] 40 mg PO BID 08/16/16 09/22/18 Cholecalciferol [Vitamin D3 (25 1,000 unit PO DAILY 09/09/17 09/22/18 Mcg = 1000 Iu)] Topiramate [Topamax] 25 mg PO BID 03/26/18 09/22/18 Previous Rx's Medication Instructions Recorded Ibuprofen 800 mg PO Q6HR PRN #20 tablet 09/22/18 Azithromycin [Zithromax Z-pack (6 250 mg PO DIRECTED #6 tab 03/11/21 tabs)] predniSONE [Deltasone] 20 mg PO BID #8 tab 03/11/21 Allergies Allergy/AdvReac Type Severity Reaction Status Date / Time Penicillins Allergy SEIZURE Verified 03/29/19 07:42 amoxicillin AdvReac Nausea & Verified 03/29/19 07:42 Vomiting & Diarrhea doxycycline AdvReac Swelling Verified 03/29/19 07:42 Sulfa (Sulfonamide AdvReac Itching Verified 03/29/19 07:42 Antibiotics) Review of Systems ROS Statement: Those systems with pertinent positive or pertinent negative responses have been documented in the HPI. ROS Other: All systems not noted in ROS Statement are negative. Constitutional: Denies: fever, chills Eyes: Denies: eye pain, vision change ENT: Reports: throat pain. Denies: ear pain, epistaxis, congestion Respiratory: Denies: cough, dyspnea, wheezes, stridor Cardiovascular: Denies: chest pain, palpitations, orthopnea, syncope Gastrointestinal: Denies: abdominal pain, nausea, vomiting Past Medical History Past Medical History: Asthma, GERD/Reflux, GI Bleed, Hypertension, Pneumonia Additional Past Medical History / Comment(s): diverticulitis, ulcers, "mitral valve regurgitaion", migarines. ANEMIA. GI BLEED 08/2016. phenomena and collapsed lung 08/2017 History of Any Multi-Drug Resistant Organisms: None Reported Past Surgical History: Tubal Ligation Additional Past Surgical History / Comment(s): exploratory GI surgery at age 6 months. EGD 08/17/16 WITH PERFORATION-SPENT 5 DAYS AT [facility] IN ICU Past Anesthesia/Blood Transfusion Reactions: Motion Sickness, Postoperative Nausea & Vomiting (PONV) Additional Past Anesthesia/Blood Transfusion Reaction / Comment(s): blood transfusion-no reaction Past Psychological History: No Psychological Hx Reported Smoking Status: Current some day smoker Past Alcohol Use History: Occasional Past Drug Use History: None Reported - Past Family History Father Family Medical History: Cancer Additional Family Medical History / Comment(s): lung Mother Family Medical History: Cancer Additional Family Medical History / Comment(s): brain General Exam Limitations: no limitations General appearance: alert, in no apparent distress Head exam: Present: atraumatic, normocephalic Eye exam: Present: normal appearance. Absent: scleral icterus, conjunctival injection ENT exam: Present: mucous membranes moist, other (There is some mild edema of the uvula. The uvula is midline with no evidence of peritonsillar abscess. No erythema.) Neck exam: Present: normal inspection, full ROM. Absent: tenderness, meningismus, lymphadenopathy Respiratory exam: Present: normal lung sounds bilaterally. Absent: respiratory distress, wheezes, rales, rhonchi, stridor Cardiovascular Exam: Present: regular rate, normal rhythm, normal heart sounds. Absent: systolic murmur, diastolic murmur, rubs, gallop Course Vital Signs 03/11/21 03/11/21 03:19 05:40 Temperature 97.9 F Pulse Rate 97 80 Respiratory 18 18 Rate Blood Pressure 148/93 135/72 O2 Sat by Pulse 95 98 Oximetry Medical Decision Making - Medical Decision Making Patient's 50-year-old woman presenting with edema of the uvula. Based on history and physical this appears to be probably related to snoring. There does not appear to be evidence of infection, however given the patient's recent extraction, she is given prescription for antibiotic and instructed to take this if there is any fever or chills that developed, if there is any erythema or if the swelling is not resolving after the medications here. Disposition Clinical Impression: Uvular edema Disposition: HOME SELF-CARE Condition: Good Instructions (If sedation given, give patient instructions): Uvulitis (ED) Prescriptions: predniSONE [Deltasone] 20 mg PO BID #8 tab Azithromycin [Zithromax Z-pack (6 tabs)] 250 mg PO DIRECTED #6 tab Is patient prescribed a controlled substance at d/c from ED?: No Referrals: Luis Mccabe DO [Primary Care Provider] - 1-2 days
[2021-03-11 05:48] VITALS: BP 135/72; PULSE 80
== END 2021-03-11 05:52 | disposition home or self-care (01) ==
LOC: EC 03:12
DX: K13.79 Other lesions of oral mucosa (principal); I10 Essential (primary) hypertension; J45.909 Unspecified asthma, uncomplicated; K21.9 Gastro-esophageal reflux disease without esophagitis; F17.200 Nicotine dependence, unspecified, uncomplicated; Z79.51 Long term (current) use of inhaled steroids; Z79.52 Long term (current) use of systemic steroids; Z88.0 Allergy status to penicillin; Z88.1 Allergy status to other antibiotic agents; Z88.2 Allergy status to sulfonamides
CPT/HCPCS: 99283; J7512

== ENCOUNTER 2021-05-11 20:07 | Observation (INO) | payer OTHER ==
[2021-05-11] MEDS ORDERED: ASPIRIN 81 MG PO STA (20:47)
[2021-05-11] MEDS ORDERED: NITROGLYCERIN OINT 1 INCH/GM PACKET TOPICAL STA (20:47)
--- NOTE | 2021-05-11 21:09 | ED ---
General Adult HPI - General Chief complaint: Chest Pain Stated complaint: COVID+,Chest Pain Time Seen by Provider: 05/11/21 20:15 Source: patient, RN notes reviewed Mode of arrival: wheelchair Limitations: no limitations - History of Present Illness Initial comments: Patient is a pleasant 50 female presenting to the emergency department complaining of chest discomfort. Patient has had upper respiratory symptoms for the past 5 days. Patient tested positive outpatient COVID-19 test today. Patient also has been having chest discomfort starting today. Chest discomfort is left upper chest and feels like pressure. Patient does have history of pneum onia with associated cardial effusion with similar symptoms. Symptoms improved with lying down and are worse in with exertion. Patient also has some exertional dyspnea. Patient has had fevers. Patient has fatigue. Patient has cough. Patient has loss of taste lost small. Patient has had some mild diarrhea. - Related Data Home Medications Medication Instructions Recorded Confirmed Albuterol Inhaler (Mhu) [Ventolin 1 puff INHALATION RT-Q6H PRN 08/10/16 09/22/18 Hfa Inhaler (Mhu)] Budesonide/Formoterol Fumarate 2 puff INHALATION RT-BID 08/10/16 09/22/18 [Symbicort 160-4.5 Mcg Inhaler] Lisinopril-Hctz 10-12.5 mg 1 tab PO QAM 08/10/16 09/22/18 [Zestoretic 10-12.5] Pantoprazole [Protonix] 40 mg PO BID 08/16/16 09/22/18 Cholecalciferol [Vitamin D3 (25 1,000 unit PO DAILY 09/09/17 09/22/18 Mcg = 1000 Iu)] Topiramate [Topamax] 25 mg PO BID 03/26/18 09/22/18 Previous Rx's Medication Instructions Recorded Ibuprofen 800 mg PO Q6HR PRN #20 tablet 09/22/18 Azithromycin [Zithromax Z-pack (6 250 mg PO DIRECTED #6 tab 03/11/21 tabs)] predniSONE [Deltasone] 20 mg PO BID #8 tab 03/11/21 Allergies Allergy/AdvReac Type Severity Reaction Status Date / Time Penicillins Allergy SEIZURE Verified 05/11/21 20:11 amoxicillin AdvReac Nausea & Verified 05/11/21 20:11 Vomiting & Diarrhea doxycycline AdvReac Swelling Verified 05/11/21 20:11 Sulfa (Sulfonamide AdvReac Itching Verified 05/11/21 20:11 Antibiotics) Review of Systems ROS Statement: Those systems with pertinent positive or pertinent negative responses have been documented in the HPI. ROS Other: All systems not noted in ROS Statement are negative. Constitutional: Reports: fever, chills Eyes: Denies: eye pain ENT: Denies: ear pain Respiratory: Reports: cough, dyspnea Cardiovascular: Reports: as per HPI, chest pain Endocrine: Reports: fatigue Gastrointestinal: Reports: diarrhea. Denies: vomiting Genitourinary: Denies: dysuria Musculoskeletal: Denies: back pain Skin: Denies: rash Past Medical History Past Medical History: Asthma, GERD/Reflux, GI Bleed, Hypertension, Pneumonia Additional Past Medical History / Comment(s): diverticulitis, ulcers, "mitral valve regurgitaion", migarines. ANEMIA. GI BLEED 08/2016. phenomena and collapsed lung 08/2017. COVID History of Any Multi-Drug Resistant Organisms: None Reported Past Surgical History: Tubal Ligation Additional Past Surgical History / Comment(s): exploratory GI surgery at age 6 months. EGD 08/17/16 WITH PERFORATION-SPENT 5 DAYS AT [facility] IN ICU Past Anesthesia/Blood Transfusion Reactions: Motion Sickness, Postoperative Nausea & Vomiting (PONV) Additional Past Anesthesia/Blood Transfusion Reaction / Comment(s): blood transfusion-no reaction Past Psychological History: No Psychological Hx Reported Smoking Status: Current some day smoker Past Alcohol Use History: Occasional Past Drug Use History: None Reported - Past Family History Father Family Medical History: Cancer Additional Family Medical History / Comment(s): lung Mother Family Medical History: Cancer Additional Family Medical History / Comment(s): brain General Exam Limitations: no limitations General appearance: alert, in no apparent distress Head exam: Present: normocephalic Eye exam: Present: normal appearance Neck exam: Present: normal inspection Respiratory exam: Present: normal lung sounds bilaterally. Absent: chest wall tenderness Cardiovascular Exam: Present: regular rate, normal rhythm Expanded Peripheral pulses: 2+: Radial (R), Radial (L), Dorsalis Pedis (R), Dorsalis Pedis (L) GI/Abdominal exam: Present: soft. Absent: tenderness Extremities exam: Present: normal inspection. Absent: pedal edema, calf tenderness Neurological exam: Present: alert Psychiatric exam: Present: normal affect, normal mood Skin exam: Present: normal color Course Vital Signs 05/11/21 20:08 Temperature 98.4 F Pulse Rate 76 Respiratory 22 Rate Blood Pressure 141/89 O2 Sat by Pulse 96 Oximetry EKG Findings - EKG Comments: EKG Findings:: Normal sinus rhythm with a rate of 72. RI 146. QRS 94. QT 376. QTc 411. Normal axis. Normal QRS. No acute ST change. Medical Decision Making - Medical Decision Making Patient reevaluated resting complain bed. Patient updated on results and plan. A cruz is receiving monoclonal antibody secondary to COVID-19 infection. Patient felt benefit for observation for repeat cardiac testing and cardiac echo secondary to probable history of pericardial effusion. Case was discussed with Dr. Ventura who is agreement with this and does request cardiology consult. Patient is not being admitted for COVID-19 concerns. - Lab Data Result diagrams: 05/11/21 20:53 05/11/21 20:53 Lab Results 05/11/21 05/11/21 05/11/21 Range/Units 20:53 20:53 20:53 WBC 7.5 (3.8-10.6) k/uL RBC 4.58 (3.80-5.40) m/uL Hgb 14.6 (11.4-16.0) gm/dL Hct 41.6 (34.0-46.0) % MCV 90.8 (80.0-100.0) fL MCH 31.8 (25.0-35.0) pg MCHC 35.0 (31.0-37.0) g/dL RDW 12.7 (11.5-15.5) % Plt Count 288 (150-450) k/uL MPV 7.1 Neutrophils % 63 % Lymphocytes % 26 % Monocytes % 5 % Eosinophils % 4 % Basophils % 1 % Neutrophils # 4.7 (1.3-7.7) k/uL Lymphocytes # 1.9 (1.0-4.8) k/uL Monocytes # 0.4 (0-1.0) k/uL Eosinophils # 0.3 (0-0.7) k/uL Basophils # 0.1 (0-0.2) k/uL PT 9.7 (9.0-12.0) sec INR 0.9 (<1.2) APTT 23.8 (22.0-30.0) sec D-Dimer 0.42 (<0.60) mg/L FEU Sodium 139 (137-145) mmol/L Potassium 3.8 (3.5-5.1) mmol/L Chloride 103 (98-107) mmol/L Carbon Dioxide 25 (22-30) mmol/L Anion Gap 11 mmol/L BUN 15 (7-17) mg/dL Creatinine 0.65 (0.52-1.04) mg/dL Est GFR (CKD-EPI)AfAm >90 (>60 ml/min/1.73 sqM) Est GFR (CKD-EPI)NonAf >90 (>60 ml/min/1.73 sqM) Glucose 140 H (74-99) mg/dL Calcium 10.1 (8.4-10.2) mg/dL Magnesium 2.2 (1.6-2.3) mg/dL Total Bilirubin 0.3 (0.2-1.3) mg/dL AST 27 (14-36) U/L ALT 29 (4-34) U/L Alkaline Phosphatase 107 (38-126) U/L Creatine Kinase 73 (30-135) U/L Troponin I (0.000-0.034) ng/mL Total Protein 6.9 (6.3-8.2) g/dL Albumin 4.3 (3.5-5.0) g/dL Coronavirus (PCR) (Not Detectd) 05/11/21 05/11/21 Range/Units 20:53 20:53 WBC (3.8-10.6) k/uL RBC (3.80-5.40) m/uL Hgb (11.4-16.0) gm/dL Hct (34.0-46.0) % MCV (80.0-100.0) fL MCH (25.0-35.0) pg MCHC (31.0-37.0) g/dL RDW (11.5-15.5) % Plt Count (150-450) k/uL MPV Neutrophils % % Lymphocytes % % Monocytes % % Eosinophils % % Basophils % % Neutrophils # (1.3-7.7) k/uL Lymphocytes # (1.0-4.8) k/uL Monocytes # (0-1.0) k/uL Eosinophils # (0-0.7) k/uL Basophils # (0-0.2) k/uL PT (9.0-12.0) sec INR (<1.2) APTT (22.0-30.0) sec D-Dimer (<0.60) mg/L FEU Sodium (137-145) mmol/L Potassium (3.5-5.1) mmol/L Chloride (98-107) mmol/L Carbon Dioxide (22-30) mmol/L Anion Gap mmol/L BUN (7-17) mg/dL Creatinine (0.52-1.04) mg/dL Est GFR (CKD-EPI)AfAm (>60 ml/min/1.73 sqM) Est GFR (CKD-EPI)NonAf (>60 ml/min/1.73 sqM) Glucose (74-99) mg/dL Calcium (8.4-10.2) mg/dL Magnesium (1.6-2.3) mg/dL Total Bilirubin (0.2-1.3) mg/dL AST (14-36) U/L ALT (4-34) U/L Alkaline Phosphatase (38-126) U/L Creatine Kinase (30-135) U/L Troponin I <0.012 (0.000-0.034) ng/mL Total Protein (6.3-8.2) g/dL Albumin (3.5-5.0) g/dL Coronavirus (PCR) Detected A (Not Detectd) - Radiology Data Radiology results: image reviewed Disposition Clinical Impression: Chest pain, COVID-19 Disposition: ADMITTED IP TO THIS [facility] Is patient prescribed a controlled substance at d/c from ED?: No Referrals: Luis Mccabe DO [Primary Care Provider] - 1-2 days Decision Time: 21:45
[2021-05-11 21:14] LABS: Basophils # (A) 0.1 k/uL (0-0.2); Basophils % (A) 1 %; Eosinophils # (A) 0.3 k/uL (0-0.7); Eosinophils % (A) 4 %; HCT 41.6 % (34.0-46.0); HGB 14.6 gm/dL (11.4-16.0); Lymphocytes # (A) 1.9 k/uL (1.0-4.8); Lymphocytes % (A) 26 %; MCH 31.8 pg (25.0-35.0); MCV 90.8 fL (80.0-100.0); Mean Platelet Volume 7.1; Monocytes # (A) 0.4 k/uL (0-1.0); Monocytes % (A) 5 %; Neutrophils # (A) 4.7 k/uL (1.3-7.7); Neutrophils % (A) 63 %; Platelet Count 288 k/uL (150-450); RBC 4.58 m/uL (3.80-5.40); RDW 12.7 % (11.5-15.5); WBC 7.5 k/uL (3.8-10.6)
[2021-05-11 21:23] LABS: ALT 29 U/L (4-34); AST 27 U/L (14-36); African American GFR (CKD) >90 (>60 ml/min/1.73 sqM); Albumin 4.3 g/dL (3.5-5.0); Alkaline Phosphatase 107 U/L (38-126); Anion Gap 11 mmol/L; Blood Urea Nitrogen 15 mg/dL (7-17); Calcium 10.1 mg/dL (8.4-10.2); Carbon Dioxide 25 mmol/L (22-30); Chloride 103 mmol/L (98-107); Creatine Kinase 73 U/L (30-135); Glucose 140 mg/dL (74-99); Magnesium 2.2 mg/dL (1.6-2.3); Non-African American GFR(CKD) >90 (>60 ml/min/1.73 sqM); Potassium 3.8 mmol/L (3.5-5.1); Sodium 139 mmol/L (137-145); Total Bilirubin 0.3 mg/dL (0.2-1.3); Total Protein 6.9 g/dL (6.3-8.2)
[2021-05-11 21:32] LABS: INR 0.9 (<1.2); Partial Thromboplastin Time 23.8 sec (22.0-30.0); Prothrombin Time 9.7 sec (9.0-12.0)
[2021-05-11] MEDS ORDERED: SODIUM CHLORIDE 0.9% 50 ML IVPB ONE (21:45)
[2021-05-11] MEDS ORDERED: NITROGLYCERIN SL TABS 0.4 MG TAB SUBLINGUAL PRN (21:45)
--- NOTE | 2021-05-11 21:45 | XR ---
EXAMINATION TYPE: XR chest 2V DATE OF EXAM: 05/11/2021 COMPARISON: 08/17/2020 HISTORY: Hemoptysis TECHNIQUE: 2 views FINDINGS: Heart and mediastinum are normal. Lungs are clear of infiltrate. There is no heart failure. There are no hilar masses. Bony thorax is intact. IMPRESSION: No active cardiopulmonary disease. Normal heart. No change.
[2021-05-11] MEDS ORDERED: CASIRIVIMAB/IMDEVIMAB (EUA) 1,200 MG in SODIUM CHLORIDE 0.9% 100 ML IVPB ONE (22:00)
[2021-05-11] MEDS ORDERED: diphenhydrAMINE 50 MG/ML 1 ML VIAL IVP STA (22:58)
[2021-05-11 23:05] VITALS: RESP 20
[2021-05-12 01:07] VITALS: BP 130/86; PULSE 84; TEMP 98.2
[2021-05-12] MEDS ORDERED: ASPIRIN 325 MG TAB PO SCH (09:00)
== END 2021-05-12 00:51 | disposition left against medical advice (07) ==
LOC: EC 20:07 → 6NMEDSUR 21:45
PROVIDERS: ADMIT Hospitalist; ATTEND Hospitalist
DX: R07.89 Other chest pain (principal); U07.1 COVID-19; I10 Essential (primary) hypertension; D64.9 Anemia, unspecified; J45.909 Unspecified asthma, uncomplicated; K21.9 Gastro-esophageal reflux disease without esophagitis; K57.90 Diverticulosis of intestine, part unspecified, without perforation or abscess without bleeding; G43.909 Migraine, unspecified, not intractable, without status migrainosus; I34.0 Nonrheumatic mitral (valve) insufficiency; F17.200 Nicotine dependence, unspecified, uncomplicated; Z53.29 Procedure and treatment not carried out because of patient's decision for other reasons; Z79.51 Long term (current) use of inhaled steroids; Z79.899 Other long term (current) drug therapy; Z88.1 Allergy status to other antibiotic agents; Z88.0 Allergy status to penicillin; Z88.2 Allergy status to sulfonamides; Z86.79 Personal history of other diseases of the circulatory system; Z87.01 Personal history of pneumonia (recurrent); Z87.19 Personal history of other diseases of the digestive system; Z98.51 Tubal ligation status; Z98.890 Other specified postprocedural states; Z80.1 Family history of malignant neoplasm of trachea, bronchus and lung; Z80.8 Family history of malignant neoplasm of other organs or systems
CPT/HCPCS: 96374; 99285; 36415; 93005; 85379; 80053; 82550; 83735; 84484 ×2; 85025; 85610; 85730; 87635; 71046; J1200; Q0243

== ENCOUNTER → 2021-11-12 | Outpatient (CLI) | payer OTHER ==
--- NOTE | 2021-11-13 12:04 | MM ---
Reason for exam: screening (asymptomatic). Last mammogram was performed 1 year and 7 months ago. History: Patient is postmenopausal. Took hormonal contraceptives for 10 years. Physical Findings: A clinical breast exam by your physician is recommended on an annual basis and results should be correlated with mammographic findings. MG 3D Screening Mammo W/Cad Bilateral CC and MLO view(s) were taken. Prior study comparison: April 12, 2020, bilateral MG 3d screening mammo w/cad. March 29, 2019, bilateral MG 3d diag mammo w/cad [facility]. Benign appearing bilateral calcifications. No significant changes when compared with prior studies. ASSESSMENT: Benign, BI-RAD 2 RECOMMENDATION: Routine screening mammogram of both breasts in 1 year.
== END | disposition home or self-care (01) ==
LOC: RADMAMWWP 09:41
PROVIDERS: ATTEND Family Medicine
DX: Z12.31 Encounter for screening mammogram for malignant neoplasm of breast (principal); Z78.0 Asymptomatic menopausal state
CPT/HCPCS: 77063; 77067

== ENCOUNTER → 2022-08-23 | Outpatient (CLI) | payer OTHER ==
--- NOTE | 2022-08-23 16:43 | CT ---
EXAMINATION TYPE: CT abdomen pelvis wo con DATE OF EXAM: 08/23/2022 COMPARISON: 05/19/2013 HISTORY: 51-year-old female R1 0.32, LLQ pain CT DLP: 1100 mGycm. Automated exposure control for dose reduction was used. TECHNIQUE: Contiguous axial scanning of the abdomen and pelvis without IV contrast. Coronal and sagit piedad reconstructions performed. FINDINGS: Heart normal size without pericardial effusion. Mild bronchial wall thickening in the visualized lowe r lungs. No pleural effusion. Calcified granuloma right middle lobe. There is a small hiatal hernia. Noncontrast appearance of the liver shows calcified granuloma laterally in the right liver lobe. Gall bladder is nondistended. Unchanged 1.5 cm low density nodule left adrenal gland compatible with lipid rich adrenal adenoma. Right adrenal gland, kidneys, spleen, and pancreas within normal limits. No dilated small bowel, free fluid, or free air. No mesenteric or retroperitoneal lymphadenopathy. Mild to moderate stool. There is generalized colonic diverticulosis. Some strandy density along the p roximal to mid sigmoid colon likely prominent vessels rather than mild limitation and should be corre lated clinically. Bladder partially distended. Uterus anteverted. Both ovaries are visualized. Pelvic phleboliths. No a bnormal fluid collection in the pelvis or pelvic lymphadenopathy. Bones: Mild degenerative disc disease visualized lower thoracic spine. IMPRESSION: 1. Generalized colonic diverticulosis. There is mild pericolonic stranding along the proximal sigmoi d colon probably representing prominent pericolonic vessels. Correlate clinically to exclude mild acu te diverticulitis. 2. Small hiatal hernia. 3. Stable 1.5 cm lipid rich left adrenal adenoma incidentally seen.
== END | disposition home or self-care (01) ==
LOC: RADCTMAIN 15:05
PROVIDERS: ATTEND Family Medicine
DX: K44.9 Diaphragmatic hernia without obstruction or gangrene (principal); K57.30 Diverticulosis of large intestine without perforation or abscess without bleeding; D35.02 Benign neoplasm of left adrenal gland
CPT/HCPCS: 74176

== ENCOUNTER → 2022-08-23 | Outpatient (CLI) | payer OTHER ==
[2022-08-23 23:11] LABS: HCT 44.7 % (37.2-46.3); MCH 29.2 pg (27.0-32.0); MCHC 31.3 g/dL (32.0-37.0); MCV 93.3 fL (80.0-97.0); Mean Platelet Volume 9.7 fL (9.5-12.2); NRBC Per 100 WBC 0 /100 WBCS (0.0-0.0); Platelet Count 371 X 10*3/uL (140-440); RBC 4.79 X 10*6/uL (4.10-5.20); RDW 12.4 % (11.5-14.5); WBC 11.53 X 10*3/uL (4.50-10.00)
[2022-08-23 23:48] LABS: African American GFR (CKD) 123.6 (60.0-200.0); Anion Gap 16.4 mmol/L (10.00-18.00); BUN/Creat Ratio 23.91 Ratio (12.00-20.00); Blood Urea Nitrogen 14.2 mg/dL (9.0-27.0); Calcium 10.8 mg/dL (8.7-10.3); Carbon Dioxide 24.8 mmol/L (20.0-27.5); Non-African American GFR(CKD) 106.6 (60.0-200.0); Potassium 4.4 mmol/L (3.5-5.5)
== END | disposition home or self-care (01) ==
LOC: LABWHC1 15:17
PROVIDERS: ATTEND Physician Assistant
DX: R10.32 Left lower quadrant pain (principal)
CPT/HCPCS: 36415; 80048; 85027

== ENCOUNTER → 2022-11-27 | Outpatient (CLI) | payer OTHER ==
--- NOTE | 2022-11-27 16:12 | MM ---
Reason for Exam: Screening (asymptomatic). Last screening mammogram was performed 12 month(s) ago. Patient History: Menarche at age 11. First Full-Term at age 29. Postmenopausal. Patient used Hormonal Contraceptives for 10 years. Risk Values: Fiona 5 year model risk: 1.2%. NCI Lifetime model risk: 10.6%. Prior Study Comparison: 03/29/2019 Bilateral Diagnostic Mammogram, [facility]. 04/12/2020 Bilateral Screening Mammogram, [facility]. 11/12/2021 Bilateral Screening Mammogram, [facility]. Tissue Density: There are scattered fibroglandular densities. Findings: Analyzed By CAD. There is no suspicious group of microcalcifications or new suspicious mass in either breast. Overall Assessment: Negative, BI-RAD 1 Management: Screening Mammogram of both breasts in 1 year. A clinical breast exam by your physician is recommended on an annual basis and results should be correlated with mammographic findings. Electronically signed and approved by: Lucio Mcarthur D.O.
== END | disposition home or self-care (01) ==
LOC: RADMAMWWP 09:42
PROVIDERS: ATTEND Family Medicine
DX: Z12.31 Encounter for screening mammogram for malignant neoplasm of breast (principal); Z78.0 Asymptomatic menopausal state
CPT/HCPCS: 77063; 77067

== ENCOUNTER 2023-03-26 15:40 | Emergency (ER) | payer OTHER ==
[2023-03-26 16:18] VITALS: TEMP 99
[2023-03-26] MEDS ORDERED: KETOROLAC 15 MG/ML 1 ML VIAL IVP STA (16:46)
[2023-03-26] MEDS ORDERED: SODIUM CHLORIDE 0.9% 1,000 ML IV STA (16:46)
[2023-03-26] MEDS ORDERED: ONDANSETRON 4 MG/2 ML VIAL IVP STA (16:46)
[2023-03-26] MEDS ORDERED: HYDROmorphone 0.5 MG/0.5 ML SYRINGE IVP STA (16:47)
--- NOTE | 2023-03-26 16:53 | ED ---
General Adult HPI - General Chief complaint: Abdominal Pain Stated complaint: abd pain,nausea Time Seen by Provider: 03/26/23 16:32 Source: patient, RN notes reviewed, old records reviewed Mode of arrival: wheelchair Limitations: no limitations - History of Present Illness Initial comments: Patient is a 52-year-old female with past medical history remarkable for asthma, diabetes, hypertension as well as diverticulitis who presents emergency Department with urinary complaints. Has been having left-sided flank and low back pain associated with hematuria and increased frequency on and off for the last week but worse today. States it feels like she is "peeing needles." Endorses some mild nausea with the pain. Endorses some mild loose stools over the last few days as well but no blood in her stool. Denies any emesis. Denies any chest pain or shortness of breath. Denies any fevers, cough, sick contacts. His no other acute complaints at this time. No history of kidney stones. Presents for further evaluation of this time. States she is not . - Related Data Home Medications Medication Instructions Recorded Confirmed Lisinopril-Hctz 10-12.5 mg 1 tab PO DAILY 08/10/16 03/24/22 [Zestoretic 10-12.5] Pantoprazole [Protonix] 40 mg PO BID 08/16/16 03/24/22 Albuterol Sulfate [Proair Hfa] 2 puff INHALATION RT-Q6H PRN 05/11/21 03/24/22 Cholecalciferol [Vitamin D3 (25 25 mcg PO DAILY 05/11/21 03/24/22 Mcg = 1000 Iu)] Montelukast Sodium [Singulair] 10 mg PO DAILY 05/11/21 03/24/22 Atorvastatin Calcium 10 mg PO DAILY 03/24/22 03/24/22 Multivitamins, Thera [Multivitamin 1 tab PO DAILY 03/24/22 03/24/22 (formulary)] metFORMIN HCL ER [Glucophage XR] 500 mg PO DAILY 03/24/22 03/24/22 Previous Rx's Medication Instructions Recorded Ciprofloxacin HCl [Cipro] 500 mg PO Q12HR 10 Days #20 tab 03/26/23 Allergies Allergy/AdvReac Type Severity Reaction Status Date / Time Penicillins Allergy SEIZURE Verified 03/26/23 16:18 amoxicillin AdvReac Nausea & Verified 03/26/23 16:18 Vomiting & Diarrhea doxycycline AdvReac Swelling Verified 03/26/23 16:18 Sulfa (Sulfonamide AdvReac Itching Verified 03/26/23 16:18 Antibiotics) Review of Systems ROS Statement: Those systems with pertinent positive or pertinent negative responses have been documented in the HPI. Review of Systems: CONST: Denies fever EYES: Denies blurry vision ENT: Denies nasal congestion C/V: Denies Chest pain RESP: Denies shortness of breath GI: Endorses abdominal pain : Denies dysuria SKIN: Denies rash. MSK: Denies joint pain. NEURO: Denies headache ROS Other: All systems not noted in ROS Statement are negative. Past Medical History Past Medical History: Asthma, Diabetes Mellitus, GERD/Reflux, GI Bleed, Hypertension, Pneumonia Additional Past Medical History / Comment(s): diverticulitis, ulcers, "mitral valve regurgitaion", migarines. ANEMIA. GI BLEED 08/2016. phenomena and collapsed lung 08/2017. COVID History of Any Multi-Drug Resistant Organisms: None Reported Past Surgical History: Tubal Ligation Additional Past Surgical History / Comment(s): exploratory GI surgery at age 6 months. EGD 08/17/16 WITH PERFORATION-SPENT 5 DAYS AT [facility] IN ICU Past Anesthesia/Blood Transfusion Reactions: Motion Sickness, Postoperative Nausea & Vomiting (PONV) Additional Past Anesthesia/Blood Transfusion Reaction / Comment(s): blood transfusion-no reaction Past Psychological History: No Psychological Hx Reported Smoking Status: Current some day smoker Past Alcohol Use History: Occasional Past Drug Use History: None Reported - Past Family History Father Family Medical History: Cancer Additional Family Medical History / Comment(s): lung Mother Family Medical History: Cancer Additional Family Medical History / Comment(s): brain General Exam - General Exam Comments Initial Comments: General: Appears in mild distress secondary to abdominal pain. HEAD: Normal with no signs of head trauma. EYES: PERRLA, EOMI, conjunctiva normal, no discharge. ENT: Hearing grossly intact, normal oropharynx. RESPIRATORY: Clear breath sounds bilaterally. No wheezes, rales, or rhonchi. C/V: Regular rate and rhythm. S1 and S2 auscultated, peripheral pulses 2+ and intact throughout ABD: Abdomen is soft, nondistended. Tender to palpation in the left flank and as well as left CVA. Urine sample at bedside shows obvious hematuria. No guarding. No rebound tenderness. No peritoneal signs. EXT: Normal range of motion, no obvious deformity SKIN: No rashes or lesions observed on exposed skin. NEURO: Alert and oriented 4. Limitations: no limitations Course Vital Signs 03/26/23 03/26/23 16:15 19:23 Temperature 99.0 F Pulse Rate 79 69 Respiratory 20 16 Rate Blood Pressure 129/89 110/64 O2 Sat by Pulse 96 97 Oximetry Medical Decision Making - Medical Decision Making Was pt. sent in by a medical professional or institution (, PA, DATABASE DEVELOPMENT PROJECT MANAGER, urgent care, hospital, or fdc...) When possible be specific @ -No Did you speak to anyone other than the patient for history (EMS, parent, family, police, friend...)? What history was obtained from this source @ -No Did you review nursing and triage notes (agree or disagree)? Why? @ -I reviewed and agree with nursing and triage notes Were old charts reviewed (outside hosp., previous admission, EMS record, old EKG, old radiological studies, urgent care reports/EKG's, fdc records)? Report findings @ -No old charts were reviewed Differential Diagnosis (chest pain, altered mental status, abdominal pain women, abdominal pain men, vaginal bleeding, weakness, fever, dyspnea, syncope, headache, dizziness, GI bleed, back pain, seizure, CVA, palpatations, mental health, musculoskeletal)? @ -Differential Abdominal Pain Women: Appendicitis, Cholecystitis, diverticulosis, ischemic bowel, pancreatitis, hepatitis, UTI, gastroenteritis, AAA, incarcerated hernia, bowel obstruction, constipation, inflammatory bowel, hepatitis, peptic ulcer disease, splenic infarction, perforated viscus, vulvitis, ovarian torsion, PID, kidney stone, placenta abruption, this is not meant to be an all-inclusive list EKG interpreted by me (3pts min.). @ -None done X-rays interpreted by me (1pt min.). @ -None done CT interpreted by me (1pt min.). @ -CT imaging negative for any obvious acute intra-abdominal process including ureteral lithiasis. U/S interpreted by me (1pt. min.). @ -None done What testing was considered but not performed or refused? (CT, X-rays, U/S, labs)? Why? @ -None What meds were considered but not given or refused? Why? @ -None Did you discuss the management of the patient with other professionals (professionals i.e. , PA, DATABASE DEVELOPMENT PROJECT MANAGER, lab, RT, psych nurse, social work manager, ground helper street railway, teacher, logistics officer, case filler)? Give summary @ -No Was smoking cessation discussed for >3mins.? @ -No Was critical care preformed (if so, how long)? @ -No Were there social determinants of health that impacted care today? How? (Homelessness, low income, unemployed, alcoholism, drug addiction, transportation, low edu. Level, literacy, decrease access to med. care, halfway, rehab)? @ -No Was there de-escalation of care discussed even if they declined (Discuss DNR or withdrawal of care, Hospice)? DNR status @ -No What co-morbidities impacted this encounter? (DM, HTN, Smoking, COPD, CAD, Cancer, CVA, ARF, Chemo, Hep., AIDS, mental health diagnosis, sleep apnea, morbi d obesity)? @ -None Was patient admitted / discharged? Hospital course, mention meds given and route, prescriptions, significant lab abnormalities, going to OR and other pertinent info. @ -Based on the patient's presentation and physical exam, I am concerned for acute abdominal process for current symptoms, likely related to urinary tract. Possible UTI or kidney stone. We will obtain abdominal laboratory studies, CT and pelvis without contrast, and patient is medically treated with IV Dilaudid, Toradol, Zofran, fluids. Patient was in agreement with this plan. Vital signs are within acceptable limits. CT imaging negative for any kidney stones or intra-abdominal process. Labs remarkable for leukocytosis of 15. Slight lactic acidosis of 2.2 likely secondary to mild nausea and vomiting. She is not . Urine positive for infection. I discussed results of the patient. I'm concerned for UTI and possible deve loping pyelonephritis. No obvious stone. She expressed understanding. She is feeling improved and I believe it is safer to be discharged home with strict return precautions for and she was in agreement this plan. She'll be started on ciprofloxacin for home. She'll be given a dose prior to discharge. I will provide the patient with a prescription for ciprofloxacin. I instructed t he patient to follow up with their PCP in the next 1-3 days. I explained that the patient should return to the emergency department if they experience any worsening symptoms. Strict return precautions were discussed with the patient. The patient expressed understanding of these instructions. I answered all questions that the patient had. The patient was discharged home in good condition with their prescriptions and follow up information. Undiagnosed new problem with uncertain prognosis? @ -No Drug Therapy requiring intensive monitoring for toxicity (Heparin, Nitro, Insulin, Cardizem)? @ -No Were any procedures done? @ -No Diagnosis/symptom? @ -UTI Acute, or Chronic, or Acute on Chronic? @ -Acute Uncomplicated (without systemic symptoms) or Complicated (systemic symptoms)? @ -Complicated Side effects of treatment? @ -none Exacerbation, Progression, or Severe Exacerbation] @ -no Poses a threat to life or bodily function? @ -Potentially, if untreated - Lab Data Result diagrams: 03/26/23 17:23 03/26/23 17:23 Lab Results 03/26/23 03/26/23 03/26/23 Range/Units 16:19 17:23 17:23 WBC 15.0 H (3.8-10.6) k/uL RBC 4.44 (3.80-5.40) m/uL Hgb 13.8 (11.4-16.0) gm/dL Hct 40.5 (34.0-46.0) % MCV 91.3 (80.0-100.0) fL MCH 31.1 (25.0-35.0) pg MCHC 34.0 (31.0-37.0) g/dL RDW 12.6 (11.5-15.5) % Plt Count 269 (150-450) k/uL MPV 7.4 Neutrophils % 73 % Lymphocytes % 17 % Monocytes % 6 % Eosinophils % 3 % Basophils % 1 % Neutrophils # 10.9 H (1.3-7.7) k/uL Lymphocytes # 2.6 (1.0-4.8) k/uL Monocytes # 0.8 (0-1.0) k/uL Eosinophils # 0.5 (0-0.7) k/uL Basophils # 0.1 (0-0.2) k/uL PT 9.4 (9.0-12.0) sec INR 0.9 (<1.2) APTT 23.5 (22.0-30.0) sec Sodium (137-145) mmol/L Potassium (3.5-5.1) mmol/L Chloride (98-107) mmol/L Carbon Dioxide (22-30) mmol/L Anion Gap mmol/L BUN (7-17) mg/dL Creatinine (0.52-1.04) mg/dL Est GFR (CKD-EPI)AfAm (>60 ml/min/1.73 sqM) Est GFR (CKD-EPI)NonAf (>60 ml/min/1.73 sqM) Glucose (74-99) mg/dL Lactic Ac Sepsis Rflx Plasma Lactic Acid [place] (0.7-2.0) mmol/L Calcium (8.4-10.2) mg/dL Total Bilirubin (0.2-1.3) mg/dL AST (14-36) U/L ALT (4-34) U/L Alkaline Phosphatase (38-126) U/L Total Protein (6.3-8.2) g/dL Albumin (3.5-5.0) g/dL Amylase (30-110) U/L Lipase (23-300) U/L HCG, Qual Urine Color Dark Red Urine Appearance Cloudy H (Clear) Urine pH 7.5 (5.0-8.0) Ur Specific [place] 1.017 (1.001-1.035) Urine Protein 2+ H (Negative) Urine Glucose (UA) Negative (Negative) Urine Ketones Negative (Negative) Urine Blood Large H (Negative) Urine Nitrite Negative (Negative) Urine Bilirubin Negative (Negative) Urine Urobilinogen <2.0 (<2.0) mg/dL Ur Leukocyte Esterase Moderate H (Negative) Urine RBC >182 H (0-5) /hpf Urine WBC 177 H (0-5) /hpf Ur Squamous Epith Cells 4 (0-4) /hpf 03/26/23 03/26/23 03/26/23 Range/Units 17:23 17: 17:44 WBC (3.8-10.6) k/uL RBC (3.80-5.40) m/uL Hgb (11.4-16.0) gm/dL Hct (34.0-46.0) % MCV (80.0-100.0) fL MCH (25.0-35.0) pg MCHC (31.0-37.0) g/dL RDW (11.5-15.5) % Plt Count (150-450) k/uL MPV Neutrophils % % Lymphocytes % % Monocytes % % Eosinophils % % Basophils % % Neutrophils # (1.3-7.7) k/uL Lymphocytes # (1.0-4.8) k/uL Monocytes # (0-1.0) k/uL Eosinophils # (0-0.7) k/uL Basophils # (0-0.2) k/uL PT (9.0-12.0) sec INR (<1.2) APTT (22.0-30.0) sec Sodium 138 (137-145) mmol/L Potassium 4.0 (3.5-5.1) mmol/L Chloride 103 (98-107) mmol/L Carbon Dioxide 25 (22-30) mmol/L Anion Gap 10 mmol/L BUN 13 (7-17) mg/dL Creatinine 0.57 (0.52-1.04) mg/dL Est GFR (CKD-EPI)AfAm >90 (>60 ml/min/1.73 sqM) Est GFR (CKD-EPI)NonAf >90 (>60 ml/min/1.73 sqM) Glucose 124 H (74-99) mg/dL Lactic Ac Sepsis Rflx Y Plasma Lactic Acid [place] 2.2 H* (0.7-2.0) mmol/L Calcium 9.5 (8.4-10.2) mg/dL Total Bilirubin 0.4 (0.2-1.3) mg/dL AST 30 (14-36) U/L ALT 37 H (4-34) U/L Alkaline Phosphatase 78 (38-126) U/L Total Protein 6.9 (6.3-8.2) g/dL Albumin 4.3 (3.5-5.0) g/dL Amylase 50 (30-110) U/L Lipase 172 (23-300) U/L HCG, Qual Not Detected Urine Color Urine Appearance (Clear) Urine pH (5.0-8.0) Ur Specific [place] (1.001-1.035) Urine Protein (Negative) Urine Glucose (UA) (Negative) Urine Ketones (Negative) Urine Blood (Negative) Urine Nitrite (Negative) Urine Bilirubin (Negative) Urine Urobilinogen (<2.0) mg/dL Ur Leukocyte Esterase (Negative) Urine RBC (0-5) /hpf Urine WBC (0-5) /hpf Ur Squamous Epith Cells (0-4) /hpf Disposition Clinical Impression: UTI (urinary tract infection) Disposition: HOME SELF-CARE Condition: Good Instructions (If sedation given, give patient instructions): Urinary Tract Infection in Women (ED) Prescriptions: Ciprofloxacin HCl [Cipro] 500 mg PO Q12HR 10 Days #20 tab Is patient prescribed a controlled substance at d/c from ED?: No Referrals: Luis Mccabe DO [Primary Care Provider] - 1-2 days Time of Disposition: 18:25
[2023-03-26 17:01] LABS: Appearance,Urine Cloudy (Clear); Bilirubin,Urine Negative (Negative); Blood,Urine Large (Negative); Color,Urine Dark Red; Glucose,Urine (UA) Negative (Negative); Ketones,Urine Negative (Negative); Leukocyte Esterase,Urine Moderate (Negative); Nitrite,Urine Negative (Negative); PH, Urine 7.5 (5.0-8.0); Protein,Urine 2+ (Negative); RBC,Urine >182 /hpf (0-5); Squamous Epithelial Cell,Urine 4 /hpf (0-4); Urobilinogen,Urine <2.0 mg/dL (<2.0); WBC,Urine 177 /hpf (0-5)
[2023-03-26 17:08] LABS: Specific Gravity,Urine 1.017 (1.001-1.035)
[2023-03-26 17:32] LABS: Basophils # (A) 0.1 k/uL (0-0.2); Basophils % (A) 1 %; Eosinophils # (A) 0.5 k/uL (0-0.7); Eosinophils % (A) 3 %; HCT 40.5 % (34.0-46.0); HGB 13.8 gm/dL (11.4-16.0); Lymphocytes # (A) 2.6 k/uL (1.0-4.8); Lymphocytes % (A) 17 %; MCH 31.1 pg (25.0-35.0); MCV 91.3 fL (80.0-100.0); Mean Platelet Volume 7.4; Monocytes # (A) 0.8 k/uL (0-1.0); Monocytes % (A) 6 %; Neutrophils # (A) 10.9 k/uL (1.3-7.7); Neutrophils % (A) 73 %; Platelet Count 269 k/uL (150-450); RBC 4.44 m/uL (3.80-5.40); RDW 12.6 % (11.5-15.5)
[2023-03-26 17:46] LABS: ALT 37 U/L (4-34); AST 30 U/L (14-36); African American GFR (CKD) >90 (>60 ml/min/1.73 sqM); Albumin 4.3 g/dL (3.5-5.0); Alkaline Phosphatase 78 U/L (38-126); Amylase 50 U/L (30-110); Anion Gap 10 mmol/L; Blood Urea Nitrogen 13 mg/dL (7-17); Calcium 9.5 mg/dL (8.4-10.2); Carbon Dioxide 25 mmol/L (22-30); Chloride 103 mmol/L (98-107); Glucose 124 mg/dL (74-99); Lipase 172 U/L (23-300); Non-African American GFR(CKD) >90 (>60 ml/min/1.73 sqM); Sodium 138 mmol/L (137-145); Total Bilirubin 0.4 mg/dL (0.2-1.3); Total Protein 6.9 g/dL (6.3-8.2)
--- NOTE | 2023-03-26 17:49 | CT ---
EXAMINATION TYPE: CT abdomen pelvis wo con DATE OF EXAM: 03/26/2023 COMPARISON: 08/23/2022 INDICATION: hematuria DLP: 766.6 mGycm, Automated exposure control for dose reduction was used. CONTRAST: 0 mL of Isovue 300. Study performed without Oral Contrast TECHNIQUE: Axial images were obtained from above the diaphragm to the pubic rami in the axial plane a t 5 mm thick sections. Reconstructed images are reviewed on the computer in the coronal plane. FINDINGS: Limited CT sections are obtained the lung bases. There is a calcified granuloma within the anterior lateral right chest.. CT ABDOMEN: Liver: Normal Spleen: Normal Pancreas: Normal Adrenal glands: The adrenal glands are normal. Gallbladder: Decompressed Kidneys: No masses are evident. No hydronephrosis is present. No cysts are present. No renal stone s are evident. No hydroureter is evident. Aorta: Vascular calcification is within the aorta. Inferior vena cava: Normal. CT PELVIS: Multiple scattered diverticuli are within the ascending colon and within the sigmoid colon. This stud y is without oral contrast limiting bowel evaluation. Appendix: Not identified. No dilated tubular structure or inflammatory changes. Urinary bladder: Decompressed limiting evaluation. Note is made of phleboliths within the pelvis. Genitourinary structures: Uterus is unremarkable. Adnexal regions appear normal. Osseous structures: No suspicious lytic or sclerotic lesions. IMPRESSIONS: 1. Diverticulosis without acute diverticulitis. 2. No suspicious renal or ureteral stones. No hydronephrosis or hydroureter.
[2023-03-26 17:53] LABS: INR 0.9 (<1.2); Partial Thromboplastin Time 23.5 sec (22.0-30.0); Prothrombin Time 9.4 sec (9.0-12.0)
[2023-03-26 17:59] LABS: HCG,Qualitative Serum Not Detected
[2023-03-26] MEDS ORDERED: CIPROFLOXACIN HCL 500 MG TAB PO STA (18:40)
[2023-03-26] MEDS ORDERED: ONDANSETRON 4 MG ODT STARTER PACK 2 TAB BTL PO STA (18:41)
[2023-03-26] MEDS ORDERED: ACET/COD 300 MG/30 MG STARTER PACK 6 TAB BTL PO STA (18:41)
[2023-03-26 19:24] VITALS: BP 110/64; PULSE 69; RESP 16
== END 2023-03-26 19:24 | disposition home or self-care (01) ==
LOC: EC 15:40
DX: N39.0 Urinary tract infection, site not specified (principal); J45.909 Unspecified asthma, uncomplicated; E11.9 Type 2 diabetes mellitus without complications; K21.9 Gastro-esophageal reflux disease without esophagitis; I10 Essential (primary) hypertension; F17.200 Nicotine dependence, unspecified, uncomplicated; Z79.84 Long term (current) use of oral hypoglycemic drugs; Z79.899 Other long term (current) drug therapy; Z88.0 Allergy status to penicillin; Z88.2 Allergy status to sulfonamides; Z88.8 Allergy status to other drugs, medicaments and biological substances; Z86.16 Personal history of COVID-19
CPT/HCPCS: 36415; 80053; 82150; 83605; 83690; 85025; 85610; 85730; 81001; 84703; 87086; 74176; 99285; 96374; 96375 ×2; 96361; J2405; J1885; S0119; J1170

== ENCOUNTER → 2023-12-08 | Outpatient (CLI) | payer OTHER ==
--- NOTE | 2023-12-08 14:38 | US ---
EXAMINATION TYPE: US transvaginal DATE OF EXAM: 12/08/2023 COMPARISON: 06/21/2016. CLINICAL INDICATION: Female, 53 years old with history of R10.2 PELVIC AND PERINEAL PAIN; Intermitten t sharp left pelvic pain x 6 months; Tubal 2010; Menopause/LMP 2013; Break through heavy bleeding 202 1; TECHNIQUE: . Transabdominal sonographic images of the pelvis not were acquired. Transvaginal sonogr aphic images were medically necessary. Date of LMP: 2013 EXAM MEASUREMENTS: Uterus: 5.3 x 2.6 x 3.2 cm Endometrial Stripe: 0.2 cm Right Ovary: 2.3 x 1.8 x 1.0 cm Left Ovary: 1.8 x 1.0 x 1.2 cm 1. Uterus: Anteverted Fibroid = 1.6 x 1.5 x 1.5 cm 2. Endometrium: wnl 3. Right Ovary: wnl 4. Left Ovary: wnl 5. Bilateral Adnexa: wnl 6. Posterior cul-de-sac: wnl IMPRESSION: 1. No evidence for acute process. 2. Fibroid uterus. 3. Endometrium within normal limits for thickness.
== END | disposition home or self-care (01) ==
LOC: RADUSWWP 12:37
PROVIDERS: ATTEND Family Medicine
DX: D25.9 Leiomyoma of uterus, unspecified (principal); Z78.0 Asymptomatic menopausal state
CPT/HCPCS: 76830

== ENCOUNTER → 2023-12-08 | Outpatient (CLI) | payer OTHER ==
--- NOTE | 2023-12-10 09:15 | MM ---
Reason for Exam: Screening (asymptomatic). Last screening mammogram was performed 12 month(s) ago. Patient History: Menarche at age 11. First Full-Term at age 29. Postmenopausal. Patient used Hormonal Contraceptives for 10 years. Risk Values: Fiona 5 year model risk: 1.3%. NCI Lifetime model risk: 10.5%. Prior Study Comparison: 04/12/2020 Bilateral Screening Mammogram, [facility]. 11/12/2021 Bilateral Screening Mammogram, [facility]. 11/27/2022 Bilateral MG 3D screening mammo w/cad, [facility]. Tissue Density: The breasts are almost entirely fatty. Findings: Analyzed By CAD. Right breast: There is no suspicious group of microcalcifications or new suspicious mass. Left breast: There is no suspicious group of microcalcifications or new suspicious mass. Overall Assessment: Negative, BI-RAD 1 Management: Screening Mammogram of both breasts in [address] [facility] will attempt to contact patient to return for supplemental views and ultrasound if indicated. Patient should continue monthly self-breast exams. A clinical breast exam by your physician is recommended on an annual basis. This exam should not preclude additional follow-up of suspicious palpable abnormalities. Note on Fiona scores and lifetime risk: 1. A Fiona score greater than 3% is considered moderate risk. If this is the case, consider specialist referral to assess eligibility for a risk reducing agent. 2. If overall lifetime risk for the development of breast cancer is 20% or higher, the patient may qualify for future screening with alternating mammogram and breast MRI. Electronically signed and approved by: Gilmer Quezada DO
== END | disposition home or self-care (01) ==
LOC: RADMAMWWP 12:36
PROVIDERS: ATTEND Family Medicine
DX: Z12.31 Encounter for screening mammogram for malignant neoplasm of breast (principal); Z78.0 Asymptomatic menopausal state
CPT/HCPCS: 77063; 77067

== ENCOUNTER → 2024-05-18 | Outpatient (CLI) | payer OTHER ==
[2024-05-18 15:14] LABS: Eosinophils # (A) 0.31 X 10*3/uL (0.04-0.35); Eosinophils % (A) 2.9 %; HCT 41.3 % (37.2-46.3); HGB 13.5 g/dL (12.0-15.0); Lymphocytes # (A) 2.34 X 10*3/uL (0.90-5.00); Lymphocytes % (A) 22.3 %; MCH 30.1 pg (27.0-32.0); MCHC 32.7 g/dL (32.0-37.0); MCV 92.2 FL (80.0-97.0); Mean Platelet Volume 9.9 FL (9.5-12.2); Monocytes # (A) 0.92 X 10*3/uL (0.20-1.00); Monocytes % (A) 8.8 %; NRBC Per 100 WBC 0 X 10*3/uL (0.00-0.01); Neutrophils # (A) 6.75 X 10*3/uL (1.80-7.70); Neutrophils % (A) 64.1 %; Platelet Count 308 X 10*3/uL (140-440); RBC 4.48 X 10*6/uL (4.10-5.20); RDW 12.7 % (11.5-14.5); WBC 10.51 X 10*3/uL (4.50-10.00)
[2024-05-18 15:35] LABS: ALT 30 U/L (8-44); AST 17 U/L (13-35); Albumin 4.5 g/dL (3.8-4.9); Albumin/Globulin Ratio 2.14 Ratio (1.60-3.17); Alkaline Phosphatase 78 U/L (41-126); Blood Urea Nitrogen 12.9 mg/dL (9.0-27.0); Calcium 9.8 mg/dL (8.7-10.3); Carbon Dioxide 27.3 mmol/L (21.6-31.8); Chloride 104 mmol/L (96-109); Chol/HDL Ratio 3.71 Ratio; Globulin 2.1 g/dL (1.6-3.3); Glucose 134 mg/dL (70-110); LDL Cholesterol,Calculated 87.2 mg/dL (0.0-131.0); Potassium 4.5 mmol/L (3.5-5.5); Sodium 142 mmol/L (135-145); Total Bilirubin 0.2 mg/dL (0.3-1.2); Total Protein 6.6 g/dL (6.2-8.2)
== END | disposition home or self-care (01) ==
LOC: LABWHC1 08:23
PROVIDERS: ATTEND Family Medicine
DX: E11.9 Type 2 diabetes mellitus without complications (principal)
CPT/HCPCS: 36415; 80053; 80061; 85025